=== PATIENT | female | born 1935 | race Caucasian/White ===

== ENCOUNTER → 2016-11-03 | Outpatient (CLI) | payer MEDICARE | END | disposition home or self-care (01) | LOC: LABWHC1 08:42 | PROVIDERS: ATTEND Psychiatry & Neurology Neurology | DX: G40.209 Localization-related (focal) (partial) symptomatic epilepsy and epileptic syndromes with complex partial seizures, not intractable, without status epilepticus (principal) | CPT/HCPCS: 36415; 80185; 84450; 84460 ==

== ENCOUNTER → 2017-11-20 | Outpatient (CLI) | payer MEDICARE ==
[2017-11-20 11:29] LABS: Phenytoin (Dilantin) 30.9 ug/mL
== END | disposition home or self-care (01) ==
LOC: LABWHC1 07:29
PROVIDERS: ATTEND Psychiatry & Neurology Neurology
DX: G40.209 Localization-related (focal) (partial) symptomatic epilepsy and epileptic syndromes with complex partial seizures, not intractable, without status epilepticus (principal)
CPT/HCPCS: 36415; 80185; 84450; 84460

== ENCOUNTER → 2017-11-26 | Outpatient (CLI) | payer MEDICARE | END | disposition home or self-care (01) | LOC: LABWHC1 09:57 | PROVIDERS: ATTEND Psychiatry & Neurology Neurology | DX: G40.209 Localization-related (focal) (partial) symptomatic epilepsy and epileptic syndromes with complex partial seizures, not intractable, without status epilepticus (principal) | CPT/HCPCS: 36415; 80185 ==

== ENCOUNTER → 2017-11-29 | Outpatient (CLI) | payer MEDICARE | END | disposition home or self-care (01) | LOC: LABWHC1 07:41 | PROVIDERS: ATTEND Psychiatry & Neurology Neurology | DX: G40.209 Localization-related (focal) (partial) symptomatic epilepsy and epileptic syndromes with complex partial seizures, not intractable, without status epilepticus (principal) | CPT/HCPCS: 36415; 80185 ==

== ENCOUNTER → 2017-12-06 | Outpatient (CLI) | payer MEDICARE | END | disposition home or self-care (01) | LOC: LABWHC1 09:07 | PROVIDERS: ATTEND Psychiatry & Neurology Neurology | DX: G40.209 Localization-related (focal) (partial) symptomatic epilepsy and epileptic syndromes with complex partial seizures, not intractable, without status epilepticus (principal) | CPT/HCPCS: 36415; 80185 ==

== ENCOUNTER → 2017-12-13 | Outpatient (CLI) | payer MEDICARE | END | disposition home or self-care (01) | LOC: LABWHC1 07:47 | PROVIDERS: ATTEND Psychiatry & Neurology Neurology | DX: G40.209 Localization-related (focal) (partial) symptomatic epilepsy and epileptic syndromes with complex partial seizures, not intractable, without status epilepticus (principal) | CPT/HCPCS: 36415; 80185 ==

== ENCOUNTER → 2017-12-20 | Outpatient (CLI) | payer MEDICARE | END | disposition home or self-care (01) | LOC: LABWHC1 09:18 | PROVIDERS: ATTEND Psychiatry & Neurology Neurology | DX: G40.209 Localization-related (focal) (partial) symptomatic epilepsy and epileptic syndromes with complex partial seizures, not intractable, without status epilepticus (principal) | CPT/HCPCS: 36415; 80185 ==

== ENCOUNTER → 2018-05-09 | Outpatient (CLI) | payer MEDICARE ==
[2018-05-09 21:30] LABS: Phenytoin (Dilantin) 19.2 ug/mL (10.0-20.0)
== END ==
LOC: LABWHC1 14:35
PROVIDERS: ATTEND Psychiatry & Neurology Neurology
DX: G40.209 Localization-related (focal) (partial) symptomatic epilepsy and epileptic syndromes with complex partial seizures, not intractable, without status epilepticus (principal)
CPT/HCPCS: 36415; 80185; 84450; 84460

== ENCOUNTER → 2018-08-14 | Outpatient (CLI) | payer MEDICARE | LOC: LABWHC1 10:46 | PROVIDERS: ATTEND Psychiatry & Neurology Neurology | DX: G40.209 Localization-related (focal) (partial) symptomatic epilepsy and epileptic syndromes with complex partial seizures, not intractable, without status epilepticus (principal) | CPT/HCPCS: 36415; 80185; 84450; 84460 ==

== ENCOUNTER → 2019-04-26 | Outpatient (CLI) | payer MEDICARE ==
[2019-04-26 17:16] LABS: Phenytoin (Dilantin) 16.8 ug/mL (10.0-20.0)
== END | disposition home or self-care (01) ==
LOC: LABWHC1 11:41
PROVIDERS: ATTEND Psychiatry & Neurology Neurology
DX: G40.209 Localization-related (focal) (partial) symptomatic epilepsy and epileptic syndromes with complex partial seizures, not intractable, without status epilepticus (principal)
CPT/HCPCS: 36415; 80185; 84450; 84460

== ENCOUNTER → 2019-12-09 | Outpatient (CLI) | payer MEDICARE ==
--- NOTE | 2019-12-09 15:37 | CT ---
EXAMINATION TYPE: CT chest w con DATE OF EXAM: 12/09/2019 COMPARISON: None HISTORY: 84-year-old female Non small cell lung cancer TECHNIQUE: Contiguous axial scanning of the chest after the administration of 80 mL of Isovue 300. C oronal/sagittal reconstructions performed. CT DLP: 411.9mGycm. Automatic exposure control utilized for a dose reduction. FINDINGS: Heart mildly enlarged without pericardial effusion. Three-vessel coronary artery calcifications are p resent. Aorta normal caliber but with moderate atherosclerotic arch and descending thoracic aortic calcificat ions. Conventional arch vessel branching anatomy. Borderline to mildly enlarged caliber to the main right and left pulmonary arteries are 2.5 and 2.6 c m, respectively, suggesting underlying pulmonary artery hypertension. Surgical clips of the right hilum with prior right upper lobectomy. Reticular changes in the visualized lower lungs with mild traction bronchiolectasis and areas of scar ring and atelectasis. No suspicious pulmonary nodule or mass. Mild biapical pleural-parenchymal scarring. Mild centrilobula r emphysema. No thoracic lymphadenopathy by CT size criteria. Visualized upper abdomen does not include the adrenal glands. Bones: Synostosis of the right lateral fifth and sixth ribs could be on a postsurgical basis. No osse ous destructive process. IMPRESSION: 1. Status post right upper lobectomy. No suspicious pulmonary nodule or mass to suggest recurrent or metastatic disease in the chest. 2. COPD with mild emphysema, fibrosis along the lung bases, and pulmonary arterial hypertension. 3. Mild cardiomegaly and CAD.
== END | disposition home or self-care (01) ==
LOC: RADCTMAIN 13:16
PROVIDERS: ATTEND Internal Medicine Critical Care Medicine
DX: J43.2 Centrilobular emphysema (principal); J84.10 Pulmonary fibrosis, unspecified; I27.21 Secondary pulmonary arterial hypertension; I25.10 Atherosclerotic heart disease of native coronary artery without angina pectoris; I51.7 Cardiomegaly; C34.90 Malignant neoplasm of unspecified part of unspecified bronchus or lung; Z90.2 Acquired absence of lung [part of]; Z88.1 Allergy status to other antibiotic agents
CPT/HCPCS: 82565; 84520; 71260; 36415; Q9967

== ENCOUNTER 2020-02-13 10:36 | Inpatient (IN) | payer MEDICARE ==
[2020-02-13 11:51] LABS: Basophils % (A) 1 %; Eosinophils % (A) 0 %; HCT 42.8 % (34.0-46.0); HGB 14.1 gm/dL (11.4-16.0); Lymphocytes # (A) 1.6 k/uL (1.0-4.8); Lymphocytes % (A) 25 %; MCH 30.4 pg (25.0-35.0); MCHC 32.9 g/dL (31.0-37.0); MCV 92.4 fL (80.0-100.0); Mean Platelet Volume 9.9; Monocytes # (A) 0.4 k/uL (0-1.0); Monocytes % (A) 6 %; Neutrophils # (A) 4.3 k/uL (1.3-7.7); Neutrophils % (A) 66 %; Platelet Count 150 k/uL (150-450); RBC 4.63 m/uL (3.80-5.40); RDW 13.4 % (11.5-15.5); WBC 6.5 k/uL (3.8-10.6)
--- NOTE | 2020-02-13 11:51 | ED ---
General Adult HPI - General Chief complaint: Shortness of Breath Stated complaint: coughed - felt bump on head move Time Seen by Provider: 02/13/20 10:40 Source: patient, family, RN notes reviewed, old records reviewed Mode of arrival: wheelchair Limitations: no limitations - History of Present Illness Initial comments: This is an 84-year-old female presents emergency Department complaining of shortness of breath which is a little worse than normal. She is also complaining of some pedal edema bilaterally. Patient denies any chest pain or palpitations. Patient states she's been coughing for about 3 weeks. Patient denies any fevers or chills. Patient does state that on the side of her forehead she has a small tiny bump that has become very tender last night and it's really bothering her. Patient states it's not mobile it's not red Hot and She Doesn't Recall Hitting. Patient States She Doesn't Believe It Was There Yesterday but There Is a Bump There Now. - Related Data Home Medications Medication Instructions Recorded Confirmed Albuterol Sulfate [Albuterol 1 puff PO RT-Q6H PRN 02/13/20 02/13/20 Sulfate Hfa] Aspirin EC [Ecotrin Low Dose] 81 mg PO DAILY 02/13/20 02/13/20 Atorvastatin Calcium [Lipitor] 20 mg PO DAILY 02/13/20 02/13/20 Digoxin [Digitek] 125 mcg PO DAILY 02/13/20 02/13/20 Doxycycline [Vibramycin] 100 mg PO BID PRN 02/13/20 02/13/20 Furosemide [Lasix] 20 mg PO DAILY 02/13/20 02/13/20 Ipratropium-Albuterol Nebulize 3 ml INHALATION RT-QID PRN 02/13/20 02/13/20 [Duoneb 0.5 mg-3 mg/3 ml Soln] Phenytoin Sodium Extended 100 mg PO BID 02/13/20 02/13/20 [Dilantin] Phenytoin [Dilantin Chew] 50 mg PO HS 02/13/20 02/13/20 Allergies Allergy/AdvReac Type Severity Reaction Status Date / Time amoxicillin Allergy Unknown-per Verified 02/13/20 11:27 PCP clarithromycin [From Biaxin] Allergy Unknown-per Verified 02/13/20 11:27 PCP sinutab Allergy Unknown-per Uncoded 02/13/20 11:27 PCP Review of Systems ROS Statement: Those systems with pertinent positive or pertinent negative responses have been documented in the HPI. ROS Other: All systems not noted in ROS Statement are negative. Past Medical History Additional Past Medical History / Comment(s): emphysema, cervical CA History of Any Multi-Drug Resistant Organisms: None Reported Past Surgical History: Unable to Obtain, Hysterectomy Additional Past Surgical History / Comment(s): bladder removed Smoking Status: Former smoker Past Alcohol Use History: None Reported Past Drug Use History: None Reported General Exam - General Exam Comments Initial Comments: GENERAL: Patient is well-developed and well-nourished. Patient is nontoxic and well- hydrated and is in mild distress. ENT: Neck is soft and supple. No significant lymphadenopathy is noted. Oropharynx is clear. Moist mucous membranes. Neck has full range of motion without eliciting any pain. EYES: The sclera were anicteric and conjunctiva were pink and moist. Extraocular movements were intact and pupils were equal round and reactive to light. Eye lids were unremarkable. PULMONARY: Unlabored respirations. Good breath sounds bilaterally. No audible rales rhonchi or wheezing was noted. CARDIOVASCULAR: Patient is bradycardic at about 40 beats minute ABDOMEN: Soft and nontender with normal bowel sounds. SKIN: Skin is clear with no lesions or rashes and otherwise unremarkable. NEUROLOGIC: Patient is alert and oriented x3. Cranial nerves II through XII are grossly intact. Motor and sensory are also intact. Normal speech, volume and content. Symmetrical smile. MUSCULOSKELETAL: Normal extremities with adequate strength and full range of motion. 1+ edema bilaterally LYMPHATICS: No significant lymphadenopathy is noted PSYCHIATRIC: Normal psychiatric evaluation. Limitations: no limitations Course Vital Signs 02/13/20 02/13/20 02/13/20 10:39 11:44 12:03 Temperature 97.5 F L Pulse Rate 45 L 42 L 40 L Respiratory 16 16 16 Rate Blood Pressure 228/67 196/61 192/92 O2 Sat by Pulse 94 L 96 97 Oximetry 02/13/20 02/13/20 12:15 13:15 Temperature Pulse Rate 38 L 42 L Respiratory 20 18 Rate Blood Pressure 188/62 170/55 O2 Sat by Pulse 99 97 Oximetry Medical Decision Making - Medical Decision Making EKG shows sinus rhythm at a rate of 41 bpm patient has a second-degree AV block at a rate of 2-1 SD interval is 252 QRS is 142 QT interval is 518 QTC is 427. Patient's EKG shows no ST segment elevation or depression. Patient does have a right bundle branch block Chest x-ray shows no acute abnormality. I spoke with Dr. price he agreed to admit the patient admitted the patient wrote admitting orders. - Lab Data Result diagrams: 02/13/20 11:35 02/13/20 11:35 Lab Results 02/13/20 02/13/20 02/13/20 Range/Units 11:35 11:35 11:35 WBC 6.5 (3.8-10.6) k/uL RBC 4.63 (3.80-5.40) m/uL Hgb 14.1 (11.4-16.0) gm/dL Hct 42.8 (34.0-46.0) % MCV 92.4 (80.0-100.0) fL MCH 30.4 (25.0-35.0) pg MCHC 32.9 (31.0-37.0) g/dL RDW 13.4 (11.5-15.5) % Plt Count 150 (150-450) k/uL Neutrophils % 66 % Lymphocytes % 25 % Monocytes % 6 % Eosinophils % 0 % Basophils % 1 % Neutrophils # 4.3 (1.3-7.7) k/uL Lymphocytes # 1.6 (1.0-4.8) k/uL Monocytes # 0.4 (0-1.0) k/uL Eosinophils # 0.0 (0-0.7) k/uL Basophils # 0.0 (0-0.2) k/uL PT 12.2 H (9.0-12.0) sec INR 1.2 H (<1.2) APTT 26.5 (22.0-30.0) sec Sodium 138 (137-145) mmol/L Potassium 4.6 (3.5-5.1) mmol/L Chloride 101 (98-107) mmol/L Carbon Dioxide 26 (22-30) mmol/L Anion Gap 11 mmol/L BUN 36 H (7-17) mg/dL Creatinine 1.08 H (0.52-1.04) mg/dL Est GFR (CKD-EPI)AfAm 54 (>60 ml/min/1.73 sqM) Est GFR (CKD-EPI)NonAf 47 (>60 ml/min/1.73 sqM) Glucose 118 H (74-99) mg/dL Plasma Lactic Acid Cesar (0.7-2.0) mmol/L Calcium 9.6 (8.4-10.2) mg/dL Magnesium 1.9 (1.6-2.3) mg/dL Total Bilirubin 0.9 (0.2-1.3) mg/dL AST 37 H (14-36) U/L ALT 25 (4-34) U/L Alkaline Phosphatase 155 H (38-126) U/L Troponin I (0.000-0.034) ng/mL NT-Pro-B Natriuret Pep pg/mL Total Protein 7.7 (6.3-8.2) g/dL Albumin 4.5 (3.5-5.0) g/dL 02/13/20 02/13/20 02/13/20 Range/Units 11:35 11:35 11:35 WBC (3.8-10.6) k/uL RBC (3.80-5.40) m/uL Hgb (11.4-16.0) gm/dL Hct (34.0-46.0) % MCV (80.0-100.0) fL MCH (25.0-35.0) pg MCHC (31.0-37.0) g/dL RDW (11.5-15.5) % Plt Count (150-450) k/uL Neutrophils % % Lymphocytes % % Monocytes % % Eosinophils % % Basophils % % Neutrophils # (1.3-7.7) k/uL Lymphocytes # (1.0-4.8) k/uL Monocytes # (0-1.0) k/uL Eosinophils # (0-0.7) k/uL Basophils # (0-0.2) k/uL PT (9.0-12.0) sec INR (<1.2) APTT (22.0-30.0) sec Sodium (137-145) mmol/L Potassium (3.5-5.1) mmol/L Chloride (98-107) mmol/L Carbon Dioxide (22-30) mmol/L Anion Gap mmol/L BUN (7-17) mg/dL Creatinine (0.52-1.04) mg/dL Est GFR (CKD-EPI)AfAm (>60 ml/min/1.73 sqM) Est GFR (CKD-EPI)NonAf (>60 ml/min/1.73 sqM) Glucose (74-99) mg/dL Plasma Lactic Acid Cesar 1.4 (0.7-2.0) mmol/L Calcium (8.4-10.2) mg/dL Magnesium (1.6-2.3) mg/dL Total Bilirubin (0.2-1.3) mg/dL AST (14-36) U/L ALT (4-34) U/L Alkaline Phosphatase (38-126) U/L Troponin I 0.019 (0.000-0.034) ng/mL NT-Pro-B Natriuret Pep 1450 pg/mL Total Protein (6.3-8.2) g/dL Albumin (3.5-5.0) g/dL Critical Care Time Critical Care Time: Yes Total Critical Care Time: 35 Disposition Clinical Impression: Second degree AV block, Mobitz type II Disposition: ADMITTED IP TO THIS HOSP Referrals: Claudy Grove MD [Primary Care Provider] - 1-2 days Time of Disposition: 13:23
--- NOTE | 2020-02-13 11:56 | XR ---
EXAMINATION TYPE: XR chest 2V DATE OF EXAM: 02/13/2020 HISTORY: Shortness of breath. COMPARISON: 08/19/2009 TECHNIQUE: 2 views of the chest are submitted. FINDINGS: Demonstrated are scattered senescent parenchymal change. Mildly Increased patchy density right lower lobe may reflect developing pneumonia. Correlate clinical ly. Cardiomegaly with pulmonary venous engorgement without overt failure at this time. Hilar and mediastinal structures are within normal limits. Degenerative changes are seen of the dorsal spine. IMPRESSION: 1. Mildly Increased patchy density right lower lobe may reflect developing pneumonia. Correlate clin ically.
[2020-02-13 12:01] LABS: INR 1.2 (<1.2); Partial Thromboplastin Time 26.5 sec (22.0-30.0); Prothrombin Time 12.2 sec (9.0-12.0)
[2020-02-13 12:07] LABS: Albumin 4.5 g/dL (3.5-5.0); Calcium 9.6 mg/dL (8.4-10.2); Magnesium 1.9 mg/dL (1.6-2.3); Potassium 4.6 mmol/L (3.5-5.1); Total Bilirubin 0.9 mg/dL (0.2-1.3); Total Protein 7.7 g/dL (6.3-8.2)
[2020-02-13] MEDS ORDERED: hydrALAZINE HCL 20 MG/ML 1 ML VIAL IVP STA (12:10)
[2020-02-13] MEDS ORDERED: NITROGLYCERIN SL TABS 0.4 MG TAB SUBLINGUAL PRN (13:24)
[2020-02-13 13:28] LABS: Phenytoin (Dilantin) 21.3 ug/mL
[2020-02-13 13:44] LABS: Digoxin 0.5 ng/mL
[2020-02-13] MEDS ORDERED: IPRATROPIUM-ALBUTEROL 3 ML NEB INHALATION PRN (16:04)
[2020-02-13 17:10] LABS: Glucose,Whole Blood 109 mg/dL (75-99)
[2020-02-13 17:10] LABS: Glucose,Whole Blood 66 mg/dL (75-99)
[2020-02-13 20:29] LABS: Glucose,Whole Blood 113 mg/dL (75-99)
[2020-02-13] MEDS: FAMOTIDINE 20 MG/2 ML VIAL IV SCH (20:53)
[2020-02-13] MEDS: HEPARIN SODIUM,PORCINE 5,000 UNIT/ML 1 ML VIAL SQ SCH (20:53)
[2020-02-13] MEDS: PHENYTOIN SODIUM EXTENDED 100 MG CAP PO SCH (20:53)
[2020-02-13] MEDS: DOXYCYCLINE 100 MG in SODIUM CHLORIDE 0.9% 100 ML IVPB SCH (20:54)
[2020-02-13] MEDS ORDERED: FAMOTIDINE 20 MG/2 ML VIAL IV SCH (21:00)
[2020-02-13] MEDS ORDERED: hydrALAZINE HCL 25 MG TAB PO PRN (21:21)
--- NOTE | 2020-02-13 21:32 | P.HPIM ---
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 She actually presents today because she has very small nodule on the left eyebrow that is hurting it is the size of about 2-3 mm only with no surrounding cellulitis and no purulent discharge. However on admission patient was noticed to be tachypneic and she states that she has chronic dyspnea however it became worse last week and is associated with cough and yellowish phlegm. Also patient was noticed with type II AV block 2-1 so decided to be admitted to the hospital Patient is hemodynamically stable, her heart rates 3841, blood pressure 180/93 Labs showing unremarkable cbc, inr, bmp, liver enzymes. Serial troponins are - 0.019 and 0.0-1. ProBNP is 1450. Digoxin level 0.5 which is below the reference range and phenytoin level is 21.3 which is slightly above the reference range EKG showing sinus rhythm at 41 with second-degree AV block with 21 AV conduction, QTC is 427. Chest x-ray: Mildly increased patchy density right lower lobe may reflect developing pneumonia Review of Systems CONSTITUTIONAL: No fever, no malaise, no fatigue. HEENT: No recent visual problems or hearing problems. Denied any sore throat. CARDIOVASCULAR: No orthopnea, PND, no palpitations, no syncope. PULMONARY: no hemoptysis. No chest wall tenderness GASTROINTESTINAL: No diarrhea, no nausea, no vomiting, no abdominal pain. Normoactive bowel sounds. NEUROLOGICAL: No headaches, no weakness, no numbness. HEMATOLOGICAL: Denies any bleeding or petechiae. GENITOURINARY: Denies any burning micturition, frequency, or urgency. MUSCULOSKELETAL/RHEUMATOLOGICAL: Denies any joint pain, swelling, or any muscle pain. ENDOCRINE: Denies any polyuria or polydipsia. Past Medical History Past Medical History: Atrial Fibrillation, Hypertension Additional Past Medical History / Comment(s): emphysema, cervical CA History of Any Multi-Drug Resistant Organisms: None Reported Past Surgical History: Unable to Obtain, Hysterectomy Additional Past Surgical History / Comment(s): bladder removed partial rt lung removed for CA Past Anesthesia/Blood Transfusion Reactions: No Reported Reaction Past Psychological History: No Psychological Hx Reported Smoking Status: Former smoker Past Alcohol Use History: None Reported Past Drug Use History: None Reported - Past Family History Mother Family Medical History: Diabetes Mellitus Medications and Allergies Home Medications Medication Instructions Recorded Confirmed Type Albuterol Sulfate [Albuterol 1 puff PO RT-Q6H PRN 02/13/20 02/13/20 History Sulfate Hfa] Aspirin EC [Ecotrin Low Dose] 81 mg PO DAILY 02/13/20 02/13/20 History Atorvastatin Calcium [Lipitor] 20 mg PO DAILY 02/13/20 02/13/20 History Digoxin [Digitek] 125 mcg PO DAILY 02/13/20 02/13/20 History Doxycycline [Vibramycin] 100 mg PO BID PRN 02/13/20 02/13/20 History Furosemide [Lasix] 20 mg PO DAILY 02/13/20 02/13/20 History Ipratropium-Albuterol Nebulize 3 ml INHALATION RT-QID PRN 02/13/20 02/13/20 History [Duoneb 0.5 mg-3 mg/3 ml Soln] Phenytoin Sodium Extended 100 mg PO BID 02/13/20 02/13/20 History [Dilantin] Phenytoin [Dilantin Chew] 50 mg PO HS 02/13/20 02/13/20 History Allergies Allergy/AdvReac Type Severity Reaction Status Date / Time amoxicillin Allergy Unknown-per Verified 02/13/20 11:27 PCP clarithromycin [From Biaxin] Allergy Unknown-per Verified 02/13/20 11:27 PCP sinutab Allergy Unknown-per Uncoded 02/13/20 11:27 PCP Physical Exam Vitals: Vital Signs Temp Pulse Resp BP Pulse Ox 02/13/20 14:00 98.0 F 41 L 18 180/93 100 02/13/20 13:15 42 L 18 170/55 97 02/13/20 12:15 38 L 20 188/62 99 02/13/20 12:03 40 L 16 192/92 97 02/13/20 11:44 42 L 16 196/61 96 02/13/20 10:39 97.5 F L 45 L 16 228/67 94 L Intake and Output 02/13/20 02/13/20 02/13/20 06:59 14:59 22:59 Other: Weight 60.781 kg 60.781 kg GENERAL: The patient is alert and oriented x3, not in any acute distress. Well developed, well nourished. HEENT: Pupils are round and equally reacting to light. EOMI. No scleral icterus. No conjunctival pallor. Normocephalic, atraumatic. No pharyngeal erythema. No thyromegaly. CARDIOVASCULAR: S1 and S2 present. No murmurs, rubs, or gallops. -PULMONARY: Chest is clear to auscultation, no wheezing or crackles. However patient is tachycardic with prolonged expiration ABDOMEN: Soft, nontender, nondistended, normoactive bowel sounds. No palpable organomegaly. MUSCULOSKELETAL: No joint swelling or deformity. EXTREMITIES: No cyanosis, clubbing, or pedal edema. NEUROLOGICAL: Gross neurological examination did not reveal any focal deficits. SKIN: No rashes. No petechiae Results CBC & Chem 7: 02/13/20 11:35 02/13/20 11:35 Labs: Abnormal Lab Results - Last 24 Hours (Table) 02/13/20 02/13/20 Range/Units 11:35 11:35 PT 12.2 H (9.0-12.0) sec INR 1.2 H (<1.2) BUN 36 H (7-17) mg/dL Creatinine 1.08 H (0.52-1.04) mg/dL Glucose 118 H (74-99) mg/dL AST 37 H (14-36) U/L Alkaline Phosphatase 155 H (38-126) U/L Thrombosis Risk Factor Assmnt - Choose All That Apply Each Factor Represents 1 point: Abnormal pulmonary function (COPD) Each Risk Factor Represents 3 Points: Age 75 years or older Thrombosis Risk Factor Assessment Total Risk Factor Score: 4 Thrombosis Risk Factor Assessment Level: Moderate Risk Assessment and Plan Assessment: Heart block type II with 2-1 block Emphysema with acute exacerbation of COPD, with possible development pneumonia Essential hypertension, uncontrolled Chronic kidney disease, stage III Atrial fibrillation History of brain aneurysm status post rupture, on prophylactic dose of Dilantin. No history of seizure History of cancer spots status post resection Plan: This is a pleasant 84 years old female who presents with 2-1 AV block and bra dycardia. COPD exacerbation. Admitted the patient to a telemetry unit, cardiology consult. Monitor vitals closely and heart rate closely. Start steroids and breathing treatment. Continue with antibiotics, send sputum for culture. Pulmonary consult start on Norvasc 5 mg daily, as well as hydralazine as needed. Monitor blood pressure closely Labs and medication were reviewed.. Continue same treatment. Continue with symptomatic treatment. Resume home medication. Monitor lytes and vitals. DVT and GI prophylaxis. Further recommendations of the clinical course of the patient DVT prophylaxis: Subcutaneous heparin GI Prophylaxis: Pepcid PT/OT: Pending Prognosis is guarded
[2020-02-13] MEDS ORDERED: ACETAMINOPHEN TAB 325 MG TAB PO PRN (23:29)
[2020-02-13] MEDS: amLODIPine 5 MG TAB PO SCH (23:41)
[2020-02-14 06:19] LABS: Glucose,Whole Blood 99 mg/dL (75-99)
[2020-02-14 06:43] LABS: Basophils % (A) 1 %; Eosinophils % (A) 0 %; HCT 39.7 % (34.0-46.0); HGB 12.7 gm/dL (11.4-16.0); Lymphocytes # (A) 1.9 k/uL (1.0-4.8); Lymphocytes % (A) 43 %; MCH 29.9 pg (25.0-35.0); MCV 93.3 fL (80.0-100.0); Mean Platelet Volume 9.8; Monocytes # (A) 0.3 k/uL (0-1.0); Monocytes % (A) 7 %; Neutrophils % (A) 45 %; Platelet Count 127 k/uL (150-450); RBC 4.25 m/uL (3.80-5.40); RDW 13.4 % (11.5-15.5); WBC 4.3 k/uL (3.8-10.6)
[2020-02-14 07:00] LABS: Calcium 8.8 mg/dL (8.4-10.2); Potassium 4.8 mmol/L (3.5-5.1)
[2020-02-14] MEDS ORDERED: ASPIRIN 325 MG TAB PO SCH (09:00)
[2020-02-14] MEDS: amLODIPine 5 MG TAB PO SCH (09:43)
[2020-02-14] MEDS: FUROSEMIDE 20 MG TAB PO SCH (09:43)
[2020-02-14] MEDS: PHENYTOIN SODIUM EXTENDED 100 MG CAP PO SCH ×2 (09:43→21:43)
[2020-02-14] MEDS: HEPARIN SODIUM,PORCINE 5,000 UNIT/ML 1 ML VIAL SQ SCH ×2 (09:43→21:44)
[2020-02-14] MEDS: ATORVASTATIN 20 MG TAB PO SCH (09:43)
[2020-02-14 12:33] LABS: Glucose,Whole Blood 137 mg/dL (75-99)
--- NOTE | 2020-02-14 12:59 | P.CRDCN ---
History of Present Illness History of present illness: This is Dr. Toribio dictating a consult on this patient The patient was interviewed and examined IMPRESSION / ASSESSMENT: 2:1 heart block with a ventricular rate of 41 beats a minute right bundle branch block pattern Left axis deviation Normal TSH normal potassium no triggering factors Hypertension Dyslipidemia on atorvastatin PLAN: Permanent pacemaker implantation, biventricular pacing to avoid RV pacing Plan for tomorrow Discussed the patient She is agreeable to the plan Increase amlodipine to 5 mg twice daily Repeat CBC with manual differential tomorrow HPI patient presented to the emergency room committee of shortness of breath somewhat worse than normal. Twelve-lead ECG showed second degree heart block, 2:1, heart block with a right bundle branch block pattern with a QRS width of 140 ms Changed to baby aspirin ROS: No fever chills or rigors, no cough, phlegm or expectoration, no nausea, vomiting or diarrhea, no hematuria, dysuria, no musculoskeletal complaints, no strokes or seizures, no skin lesions. EXAMINATION: Temperature 97.6F pulse rate in the 30s and 40s normal respirations no orthopnea Blood pressure 149/52 mmHg and 167/56. His mercury Heart sounds S1 and S2 are normal no murmurs or gallop or rub Breath sounds are clear no rhonchi no crackles Abdomen is soft nontender except is warm REVIEW OF LABS, ECG & MEDICAL DATA Normal white count normal hemoglobin Normal potassium BUN 36 creatinine 1.23 TSH normal at 0.9 LDL 33 Past Medical History Past Medical History: Atrial Fibrillation, Hypertension Additional Past Medical History / Comment(s): emphysema, cervical CA History of Any Multi-Drug Resistant Organisms: None Reported Past Surgical History: Unable to Obtain, Hysterectomy Additional Past Surgical History / Comment(s): bladder removed partial rt lung removed for CA Past Anesthesia/Blood Transfusion Reactions: No Reported Reaction Past Psychological History: No Psychological Hx Reported Smoking Status: Former smoker Past Alcohol Use History: None Reported Past Drug Use History: None Reported - Past Family History Mother Family Medical History: Diabetes Mellitus Medications and Allergies Home Medications Medication Instructions Recorded Confirmed Type Albuterol Sulfate [Albuterol 1 puff PO RT-Q6H PRN 02/13/20 02/13/20 History Sulfate Hfa] Aspirin EC [Ecotrin Low Dose] 81 mg PO DAILY 02/13/20 02/13/20 History Atorvastatin Calcium [Lipitor] 20 mg PO DAILY 02/13/20 02/13/20 History Digoxin [Digitek] 125 mcg PO DAILY 02/13/20 02/13/20 History Doxycycline [Vibramycin] 100 mg PO BID PRN 02/13/20 02/13/20 History Furosemide [Lasix] 20 mg PO DAILY 02/13/20 02/13/20 History Ipratropium-Albuterol Nebulize 3 ml INHALATION RT-QID PRN 02/13/20 02/13/20 History [Duoneb 0.5 mg-3 mg/3 ml Soln] Phenytoin Sodium Extended 100 mg PO BID 02/13/20 02/13/20 History [Dilantin] Phenytoin [Dilantin Chew] 50 mg PO HS 02/13/20 02/13/20 History Allergies Allergy/AdvReac Type Severity Reaction Status Date / Time amoxicillin Allergy Unknown-per Verified 02/13/20 11:27 PCP clarithromycin [From Biaxin] Allergy Unknown-per Verified 02/13/20 11:27 PCP sinutab Allergy Unknown-per Uncoded 02/13/20 11:27 PCP Physical Exam Vitals: Vital Signs Temp Pulse Pulse Resp BP BP Pulse Ox 02/14/20 08:00 97.6 F 38 L 17 167/56 97 02/14/20 04:00 40 L 19 149/52 96 02/14/20 00:00 45 L 20 148/62 94 L 02/13/20 20:00 97.5 F L 43 L 20 150/68 96 02/13/20 16:00 71 16 175/63 98 02/13/20 14:00 98.0 F 41 L 18 180/93 100 02/13/20 13:15 42 L 18 170/55 97 Intake and Output 02/13/20 02/14/20 02/14/20 22:59 06:59 14:59 Intake Total 0 Balance 0 Intake: Oral 0 Other: Voiding Method Toilet Toilet Toilet # Voids 1 1 1 # Bowel Movements 1 1 Weight 60.781 kg 61.1 kg Results 02/14/20 05:53 02/14/20 05:53 Cardiac Enzymes 02/13/20 02/13/20 Range/Units 14:46 17:23 Troponin I 0.021 0.024 (0.000-0.034) ng/mL Lipids 02/14/20 Range/Units 05:53 Triglycerides 59 (<150) mg/dL Cholesterol 89 (<200) mg/dL HDL Cholesterol 44 (40-60) mg/dL CBC 02/14/20 Range/Units 05:53 WBC 4.3 (3.8-10.6) k/uL RBC 4.25 (3.80-5.40) m/uL Hgb 12.7 (11.4-16.0) gm/dL Hct 39.7 (34.0-46.0) % Plt Count 127 L (150-450) k/uL Comprehensive Metabolic Panel 02/14/20 Range/Units 05:53 Sodium 139 (137-145) mmol/L Potassium 4.8 (3.5-5.1) mmol/L Chloride 104 (98-107) mmol/L Carbon Dioxide 29 (22-30) mmol/L BUN 36 H (7-17) mg/dL Creatinine 1.23 H (0.52-1.04) mg/dL Glucose 101 H (74-99) mg/dL Calcium 8.8 (8.4-10.2) mg/dL Current Medications Generic Name Dose Route Start Last Admin Trade Name Freq PRN Reason Stop Dose Admin Acetaminophen 650 mg 02/13/20 23:29 02/13/20 23:41 Acetaminophen Tab 325 Mg Tab PO 650 mg Q4HR PRN Administration Fever and/ or Pain Albuterol/Ipratropium 3 ml 02/13/20 16:04 Ipratropium-Albuterol 3 Ml Neb INHALATION RT-QID PRN Shortness Of Breath Or Wheezing Amlodipine Besylate 5 mg 02/13/20 21:30 02/14/20 09:43 Amlodipine 5 Mg Tab PO 5 mg DAILY NICKOLAS Administration Aspirin 81 mg 02/15/20 09:00 Aspirin 81 Mg PO DAILY NICKOLAS Atorvastatin Calcium 20 mg 02/14/20 09:00 02/14/20 09:43 Atorvastatin 20 Mg Tab PO 20 mg DAILY NICKOLAS Administration Famotidine 20 mg 02/13/20 21:00 02/13/20 20:53 Famotidine 20 Mg/2 Ml Vial IV 20 mg Q24H NICKOLAS Administration Furosemide 20 mg 02/14/20 09:00 02/14/20 09:43 Furosemide 20 Mg Tab PO 20 mg DAILY NICKOLAS Administration Heparin Sodium (Porcine) 5,000 unit 02/13/20 21:00 02/14/20 09:43 Heparin Sodium,Porcine 5,000 Unit/Ml 1 Ml Vial SQ 5,000 unit Q12HR NICKOLAS Administration Hydralazine HCl 25 mg 02/13/20 21:21 Hydralazine Hcl 25 Mg Tab PO TID PRN Blood Pressure - High Doxycycline Hyclate 100 mg/ 100 mls @ 100 mls/hr 02/13/20 21:00 02/13/20 20:54 Sodium Chloride IVPB 100 mls/hr Q12HR NICKOLAS Administration Sodium Chloride 1,000 mls @ 50 mls/hr 02/14/20 12:45 Saline 0.9% IV .Q20H NICKOLAS Sodium Chloride 1,000 mls @ 50 mls/hr 02/14/20 12:45 Saline 0.9% IV .Q20H NICKOLAS Clindamycin Phosphate 900 mg/ 56 mls @ 50 mls/hr 02/15/20 09:00 Dextrose/Water IVPB 02/15/20 10:07 ONCE ONE Clindamycin Phosphate 600 mg/ 254 mls @ 500 mls/hr 02/15/20 09:00 Sodium Chloride IRRIGATION 02/15/20 09:30 ONCE ONE Nitroglycerin 0.4 mg 02/13/20 13:24 Nitroglycerin Sl Tabs 0.4 Mg Tab SUBLINGUAL Q5M PRN Chest Pain Phenytoin Sodium 100 mg 02/13/20 21:00 02/14/20 09:43 Phenytoin Sodium Extended 100 Mg Cap PO 100 mg BID NICKOLAS Administration Intake and Output 02/13/20 02/14/20 02/14/20 22:59 06:59 14:59 Intake Total 0 Balance 0 Intake: Oral 0 Other: Voiding Method Toilet Toilet Toilet # Voids 1 1 1 # Bowel Movements 1 1 Weight 60.781 kg 61.1 kg 02/14/20 05:53 02/14/20 05:53
[2020-02-14] MEDS: SODIUM CHLORIDE 0.9% 1,000 ML IV SCH ×2 (13:05→13:40)
--- NOTE | 2020-02-14 13:09 | P.CNPUL ---
History of Present Illness Consult date: 02/14/20 Requesting physician: Wiliam Valdes Reason for consult: dyspnea Chief complaint: Lump on the left side of her History of present illness: This is a very pleasant 84-year-old female patient who follows with Dr. Grove as her primary care provider. She has a history of hyperlipidemia, hypertension, atrial fibrillation, chronic kidney disease stage III, previous brain aneurysm status post rupture and remains on Dilantin with no history of seizures. She also follows with Dr. Plunkett in our office for history of non-small cell lung cancer. Status post right upper lobectomy. Recent CAT scan revealed no areas of suspicious nodule or mass to suggest recurrent metastatic disease. There was noted COPD with mild emphysema and fibrosis along the lung bases and pulmonary arterial hypertension. She presented to the emergency room yesterday with concerns regarding a new lump over her left eye. During her evaluation she was noted to have bradycardia and EKG revealed Mobitz type II heart block. Chest x- ray showed patchy density in the right lower lobe possibly reflecting early pneumonia. We're consulted for the same. She is seen today on the selective care unit. She is currently awake and alert resting comfortably in bed. She is maintaining O2 saturations in the mid 90s on 2 L/m per nasal cannula. She's afebrile. Heart rate in the 30s to 40s. White count 4.3. Hemoglobin 12.7. Platelet count 127. Sodium 139. Potassium 4.8. Creatinine 1.23. TSH 0.931. Digoxin 0.5. Phenytoin level 21.3. Review of Systems REVIEW OF SYSTEMS: CONSTITUTIONAL: Denies any recent significant weight loss or weight gain. EYES: Denies change in vision. EARS, NOSE, MOUTH, THROAT: Concerns with new small bump over the left eyebrow. Denies headaches, denies sore throat. CARDIOVASCULAR: Denies chest pain, palpitations or syncopal episodes. RESPIRATORY: Denies shortness of breath, cough, congestion or hemoptysis. GASTROINTESTINAL: Denies change in appetite, denies abdominal pain GENITOURINARY: Denies hematuria, denies infections. MUSKULOSKELETAL: Denies pain, denies swelling. INTEGUMENTARY: Denies rash, denies eczema. NEUROLOGICAL: Denies recent memory loss, no recent seizure activity. PSYCHIATRIC: Denies anxiety, denies depression. HEMATOLOGIC/LYMPHATIC: Denies anemia, denies enlarged lymph nodes. Past Medical History Past Medical History: Atrial Fibrillation, Hypertension Additional Past Medical History / Comment(s): emphysema, cervical CA History of Any Multi-Drug Resistant Organisms: None Reported Past Surgical History: Unable to Obtain, Hysterectomy Additional Past Surgical History / Comment(s): bladder removed partial rt lung removed for CA Past Anesthesia/Blood Transfusion Reactions: No Reported Reaction Past Psychological History: No Psychological Hx Reported Smoking Status: Former smoker Past Alcohol Use History: None Reported Past Drug Use History: None Reported - Past Family History Mother Family Medical History: Diabetes Mellitus Medications and Allergies Home Medications Medication Instructions Recorded Confirmed Type Albuterol Sulfate [Albuterol 1 puff PO RT-Q6H PRN 02/13/20 02/13/20 History Sulfate Hfa] Aspirin EC [Ecotrin Low Dose] 81 mg PO DAILY 02/13/20 02/13/20 History Atorvastatin Calcium [Lipitor] 20 mg PO DAILY 02/13/20 02/13/20 History Digoxin [Digitek] 125 mcg PO DAILY 02/13/20 02/13/20 History Doxycycline [Vibramycin] 100 mg PO BID PRN 02/13/20 02/13/20 History Furosemide [Lasix] 20 mg PO DAILY 02/13/20 02/13/20 History Ipratropium-Albuterol Nebulize 3 ml INHALATION RT-QID PRN 02/13/20 02/13/20 History [Duoneb 0.5 mg-3 mg/3 ml Soln] Phenytoin Sodium Extended 100 mg PO BID 02/13/20 02/13/20 History [Dilantin] Phenytoin [Dilantin Chew] 50 mg PO HS 02/13/20 02/13/20 History Allergies Allergy/AdvReac Type Severity Reaction Status Date / Time amoxicillin Allergy Unknown-per Verified 02/13/20 11:27 PCP clarithromycin [From Biaxin] Allergy Unknown-per Verified 02/13/20 11:27 PCP sinutab Allergy Unknown-per Uncoded 02/13/20 11:27 PCP Physical Exam Vitals: Vital Signs Temp Pulse Pulse Resp BP BP Pulse Ox 02/14/20 08:00 97.6 F 38 L 17 167/56 97 02/14/20 04:00 40 L 19 149/52 96 02/14/20 00:00 45 L 20 148/62 94 L 02/13/20 20:00 97.5 F L 43 L 20 150/68 96 02/13/20 16:00 71 16 175/63 98 02/13/20 14:00 98.0 F 41 L 18 180/93 100 02/13/20 13:15 42 L 18 170/55 97 Intake and Output 02/13/20 02/14/20 02/14/20 22:59 06:59 14:59 Intake Total 0 Balance 0 Intake: Oral 0 Other: Voiding Method Toilet Toilet Toilet # Voids 1 1 1 # Bowel Movements 1 1 Weight 60.781 kg 61.1 kg GENERAL EXAM: Alert, comfortable, frail 84-year-old female patient, on 2 L nasal cannula, comfortable in no apparent distress. HEAD: Normocephalic. EYES: Normal reaction of pupils, equal size. NOSE: Clear with pink turbinates. THROAT: No erythema or exudates. NECK: No masses, no JVD. CHEST: No chest wall deformity. LUNGS: Equal air entry with no crackles, wheeze, rhonchi or dullness. CVS: S1 and S2 normal with no audible murmur, bradycardic. ABDOMEN: No hepatosplenomegaly, normal bowel sounds, no guarding or rigidity. SPINE: No scoliosis or deformity SKIN: No rashes CENTRAL NERVOUS SYSTEM: No focal deficits, tone is normal in all 4 extremities. EXTREMITIES: There is no peripheral edema. No clubbing, no cyanosis. Peripheral pulses are intact. Results - Laboratory Findings CBC and BMP: 02/14/20 05:53 02/14/20 05:53 PT/INR, D-dimer PT 12.2 sec (9.0-12.0) H 02/13/20 11:35 INR 1.2 (<1.2) H 02/13/20 11:35 Abnormal lab findings: Abnormal Labs 02/13/20 02/13/20 02/13/20 11:35 11:35 16:52 Plt Count PT 12.2 H INR 1.2 H BUN 36 H Creatinine 1.08 H Glucose 118 H POC Glucose (mg/dL) 66 L AST 37 H Alkaline Phosphatase 155 H 02/13/20 02/13/20 02/14/20 17:02 20:27 05:53 Plt Count PT INR BUN 36 H Creatinine 1.23 H Glucose 101 H POC Glucose (mg/dL) 109 H 113 H AST Alkaline Phosphatase 02/14/20 02/14/20 05:53 12:20 Plt Count 127 L PT INR BUN Creatinine Glucose POC Glucose (mg/dL) 137 H AST Alkaline Phosphatase - Diagnostic Findings Chest x-ray: image reviewed Assessment and Plan Assessment: 1 Bradycardia with Mobitz type II heart block, current heart rate in the 30s and 40s 2 Acute on chronic hypoxemic respiratory failure secondary to acute exacerbation of CVA COPD with possible early pneumonia in the right lower lobe 3 History of atrial fibrillation maintained on digoxin in the outpatient setting, serum digoxin level 0.5 4 History of ruptured brain aneurysm maintained on Dilantin in the outpatient setting with no history of seizures, phenytoin level 21.3 5 History of hypertension 6 Hyperlipidemia 7 Former smoker Plan: The patient was seen and evaluated by Dr. Hart Chest x-ray and labs reviewed Continue bronchodilators Continue antibiotics Stable from the pulmonary standpoint Cardiology is following and plans for possible pacemaker insertion tomorrow We will continue to follow I, the cosigning physician, performed a history & physical examination of the patient. Lungs sounds faint end expiratory wheeze, crackles in the right base, diminished Maintaining good O2 saturations in the 90s on 2 L/m per nasal cannula. I discussed the assessment and plan of care with my nurse practitioner, Nanda Willis. I attest to the above consultation as dictated by her. Time with Patient: Greater than 30
[2020-02-14] MEDS: DOXYCYCLINE 100 MG in SODIUM CHLORIDE 0.9% 100 ML IVPB SCH ×2 (13:40→21:43)
[2020-02-14] MEDS ORDERED: methylPREDNISolone SOD SUCCI 40 MG/ML 1 ML VIAL IV SCH (16:04)
[2020-02-14 17:22] LABS: Glucose,Whole Blood 109 mg/dL (75-99)
[2020-02-14 21:22] LABS: Glucose,Whole Blood 109 mg/dL (75-99)
[2020-02-14] MEDS: FAMOTIDINE 20 MG/2 ML VIAL IV SCH (21:44)
[2020-02-15 06:06] LABS: Glucose,Whole Blood 113 mg/dL (75-99)
[2020-02-15 06:49] LABS: Basophils % (A) 1 %; Eosinophils % (A) 0 %; HCT 37.8 % (34.0-46.0); HGB 12.1 gm/dL (11.4-16.0); Lymphocytes # (A) 1.2 k/uL (1.0-4.8); Lymphocytes % (A) 27 %; MCHC 31.9 g/dL (31.0-37.0); Mean Platelet Volume 10.1; Monocytes # (A) 0.3 k/uL (0-1.0); Monocytes % (A) 7 %; Neutrophils # (A) 2.7 k/uL (1.3-7.7); Neutrophils % (A) 62 %; Platelet Count 111 k/uL (150-450); RBC 4.02 m/uL (3.80-5.40); RDW 13.2 % (11.5-15.5); WBC 4.4 k/uL (3.8-10.6)
[2020-02-15] MEDS ORDERED: IOPAMIDOL-370 50ML BTL INJ ONE (08:27)
[2020-02-15] MEDS: SODIUM CHLORIDE 0.9% 1,000 ML IV SCH ×2 (08:58→13:33)
[2020-02-15] MEDS ORDERED: CLINDAMYCIN 900 MG in DEXTROSE 5% IN WATER 50 ML IVPB ONE ×2 (09:00)
[2020-02-15] MEDS ORDERED: CLINDAMYCIN 600 MG in SODIUM CHLORIDE 0.9% IRRIGATIO 250 ML IRRIGATION ONE (09:00)
[2020-02-15] MEDS ORDERED: SODIUM CHLORIDE 0.9% 1,000 ML IV ONE (09:05)
[2020-02-15] MEDS ORDERED: LIDOCAINE 1% INJ 10MG/ML (20 ML MDV) ONE ×2 (09:19)
[2020-02-15] MEDS ORDERED: HEPARIN SODIUM 1,000 UN/ML (10ML VL) ONE (09:36)
[2020-02-15] MEDS ORDERED: fentaNYL (PF) 50 MCG/ML 2 ML AMP ONE (09:42)
[2020-02-15] MEDS ORDERED: diphenhydrAMINE 50 MG/ML 1 ML VIAL ONE (09:42)
[2020-02-15] MEDS ORDERED: MIDAZOLAM 2 MG/2 ML VIAL ONE (09:42)
[2020-02-15] MEDS ORDERED: LIDOCAINE 1% INJ 10MG/ML (20 ML MDV) SQ ONE ×2 (10:18→10:26)
[2020-02-15] MEDS ORDERED: ACETAMINOPHEN TAB 325 MG TAB PO PRN (12:17)
--- NOTE | 2020-02-15 12:25 | P.PN ---
Progress Note - Text Final diagnoses 2-1 heart block with right bundle branch block Infrahisian block, Hypertension Status post biventricular pacing with physiologic septal pacing Nonselective His bundle capture
[2020-02-15] MEDS: HEPARIN SODIUM,PORCINE 5,000 UNIT/ML 1 ML VIAL SQ SCH ×2 (13:34→19:40)
--- NOTE | 2020-02-15 14:24 | P.PN ---
Subjective Progress Note Date: 02/14/20 Principal diagnosis: Bradycardia with Mobitz type II heart block Mrs. Eduardo is an 84-year-old female with a past medical history of atrial fibrillation and hypertension, CK D stage III, previous brain aneurysm, non- small cell lung cancer status post right upper lobectomy, COPD, pulmonary hypertension coming in with the current symptoms of new lump over the left eye. In the ER patient had a chest x-ray done showing bradycardia with Mobitz type II heart block. Chest x-ray was showing patchy density in the right lower lobe possibly reflecting early pneumonia and so she is admitted for further management and workup. On 02/14/2020-patient is sitting up in her bed appears to be in acute distress. Patient does not have any active complaints. She denies chest pain or palpi tations. No dizziness or loss of consciousness. Patient denies any cough or difficulty in breathing. No abdominal pain, nausea, vomiting or diarrhea. No dysuria or hematuria. On reviewing her vitals patient is still bradycardic, saturating at 97% on 2 L of oxygen. Afebrile the past 24 hours and blood pressure marginally controlled. On reviewing her labs patient's white count is 4.3, hemoglobin 12.7, platelets 127. Sodium 139 progression 4.8, chloride 104, bicarbonate 29, BUN 36, creatinine 1.23. Medications Acetaminophen (Acetaminophen Tab 325 Mg Tab) 650 mg PO Q4HR PRN PRN Reason: Fever and/ or Pain Last Admin: 02/13/20 23:41 Dose: 650 mg Documented by: Albuterol/Ipratropium (Ipratropium-Albuterol 3 Ml Neb) 3 ml INHALATION RT-QID PRN PRN Reason: Shortness Of Breath Or Wheezing Amlodipine Besylate (Amlodipine 5 Mg Tab) 5 mg PO DAILY [facility] Last Admin: 02/14/20 09:43 Dose: 5 mg Documented by: Aspirin (Aspirin 81 Mg) 81 mg PO DAILY [facility] Atorvastatin Calcium (Atorvastatin 20 Mg Tab) 20 mg PO DAILY [facility] Last Admin: 02/14/20 09:43 Dose: 20 mg Documented by: Famotidine (Famotidine 20 Mg/2 Ml Vial) 20 mg IV Q24H [facility] Last Admin: 02/14/20 21:44 Dose: 20 mg Documented by: Furosemide (Furosemide 20 Mg Tab) 20 mg PO DAILY [facility] Last Admin: 02/14/20 09:43 Dose: 20 mg Documented by: Heparin Sodium (Porcine) (Heparin Sodium,Porcine 5,000 Unit/Ml 1 Ml Vial) 5,000 unit SQ Q12HR [facility] Last Admin: 02/14/20 21:44 Dose: 5,000 unit Documented by: Hydralazine HCl (Hydralazine Hcl 25 Mg Tab) 25 mg PO TID PRN PRN Reason: Blood Pressure - High Doxycycline Hyclate 100 mg/ (Sodium Chloride) 100 mls @ 100 mls/hr IVPB Q12HR [facility] Last Admin: 02/14/20 21:43 Dose: 100 mls/hr Documented by: Sodium Chloride (Saline 0.9%) 1,000 mls @ 50 mls/hr IV .Q20H [facility] Last Admin: 02/14/20 13:05 Dose: Not Given Documented by: Sodium Chloride (Saline 0.9%) 1,000 mls @ 50 mls/hr IV .Q20H [facility] Last Admin: 02/14/20 13:40 Dose: 50 mls/hr Documented by: Clindamycin Phosphate 900 mg/ (Dextrose/Water) 56 mls @ 50 mls/hr IVPB ONCE ONE Stop: 02/15/20 10:07 Clindamycin Phosphate 600 mg/ (Sodium Chloride) 254 mls @ 500 mls/hr IRRIGATION ONCE ONE Stop: 02/15/20 09:30 Nitroglycerin (Nitroglycerin Sl Tabs 0.4 Mg Tab) 0.4 mg SUBLINGUAL Q5M PRN PRN Reason: Chest Pain Phenytoin Sodium (Phenytoin Sodium Extended 100 Mg Cap) 100 mg PO BID [facility] Last Admin: 02/14/20 21:43 Dose: 100 mg Documented by: Objective - Vital Signs Vital signs: Vital Signs Temp 98.4 F 02/14/20 16:00 Pulse 42 L 02/14/20 16:00 Resp 19 02/14/20 16:00 BP 125/48 02/14/20 16:00 Pulse Ox 97 02/14/20 16:00 Intake & Output 02/13/20 02/14/20 02/14/20 18:59 06:59 18:59 Intake Total 250 Balance 250 Weight 60.781 kg 61.1 kg Intake: IV 10 0.9 10 Oral 240 Other: Voiding Method Toilet Toilet # Voids 0 1 1 # Bowel Movements 1 2 - Exam GENERAL: The patient is alert and oriented x3, not in any acute distress. Well developed, well nourished. HEENT: Pupils are round and equally reacting to light. EOMI. No scleral icterus. No conjunctival pallor. CARDIOVASCULAR: S1 and S2 present. No murmurs, rubs, or gallops. PULMONARY: Chest is clear to auscultation, no wheezing or crackles. Prolonged expiration ABDOMEN: Soft, nontender, nondistended, normoactive bowel sounds. No palpable organomegaly. MUSCULOSKELETAL: No joint swelling or deformity. EXTREMITIES: No cyanosis, clubbing, or pedal edema. NEUROLOGICAL: Gross neurological examination did not reveal any focal deficits. SKIN: No rashes. No petechiae - Labs CBC & Chem 7: 02/15/20 06:05 02/14/20 05:53 Labs: Abnormal Lab Results - Last 24 Hours (Table) 02/13/20 02/14/20 02/14/20 Range/Units 20:27 05:53 05:53 Plt Count 127 L (150-450) k/uL BUN 36 H (7-17) mg/dL Creatinine 1.23 H (0.52-1.04) mg/dL Glucose 101 H (74-99) mg/dL POC Glucose (mg/dL) 113 H (75-99) mg/dL 02/14/20 02/14/20 Range/Units 12:20 17:18 Plt Count (150-450) k/uL BUN (7-17) mg/dL Creatinine (0.52-1.04) mg/dL Glucose (74-99) mg/dL POC Glucose (mg/dL) 137 H 109 H (75-99) mg/dL Assessment and Plan Assessment: ASSESSMENT Bradycardia with Heart block type II with 2-1 block Emphysema with acute exacerbation of COPD, with possible development of right lower lobe pneumonia Essential hypertension, uncontrolled Chronic kidney disease, stage III History of brain aneurysm status post rupture, on prophylactic dose of Dilantin. No history of seizure History of cancer spots status post resection Plan: Patient has been started on clindamycin and doxycycline for right lower lobe pneumonia, continue with breathing treatments and steroids. Cardiology is on board and planning for permanent pacemaker implantation tomorrow morning. Continue with the current medical management. Further recommendations to follow depending on the progress of the patient.
[2020-02-15] MEDS: ATORVASTATIN 20 MG TAB PO SCH (14:33)
[2020-02-15] MEDS: ASPIRIN 81 MG PO SCH (14:33)
[2020-02-15] MEDS: FUROSEMIDE 20 MG TAB PO SCH (14:33)
[2020-02-15] MEDS: PHENYTOIN SODIUM EXTENDED 100 MG CAP PO SCH ×2 (14:33→19:40)
[2020-02-15] MEDS: DOXYCYCLINE 100 MG in SODIUM CHLORIDE 0.9% 100 ML IVPB SCH ×2 (14:35→19:40)
[2020-02-15] MEDS ORDERED: amLODIPine 5 MG TAB PO STA (15:02)
--- NOTE | 2020-02-15 15:41 | XR ---
EXAMINATION TYPE: XR chest 1V portable DATE OF EXAM: 02/15/2020 COMPARISON: 02/13/2020 HISTORY: Short of breath TECHNIQUE: FINDINGS: There is coarse interstitial density in the lungs. Heart is slightly enlarged. There is lef t axillary pacemaker. There is slight blunting right costophrenic angle. There is no gross heart fail ure. IMPRESSION: Pulmonary fibrosis. Small right pleural effusion and pleural diaphragmatic scarring. No c hange compared to recent exam.
--- NOTE | 2020-02-15 16:33 | P.PN ---
Subjective Progress Note Date: 02/15/20 Principal diagnosis: Bradycardia with Mobitz type II heart block Mrs. Eduardo is an 84-year-old female with a past medical history of atrial fibrillation and hypertension, CK D stage III, previous brain aneurysm, non- small cell lung cancer status post right upper lobectomy, COPD, pulmonary hypertension coming in with the current symptoms of new lump over the left eye. In the ER patient had a chest x-ray done showing bradycardia with Mobitz type II heart block. Chest x-ray was showing patchy density in the right lower lobe possibly reflecting early pneumonia and so she is admitted for further management and workup. On 02/14/2020-patient is sitting up in her bed appears to be in acute distress. Patient does not have any active complaints. She denies chest pain or palpi tations. No dizziness or loss of consciousness. Patient denies any cough or difficulty in breathing. No abdominal pain, nausea, vomiting or diarrhea. No dysuria or hematuria. On reviewing her vitals patient is still bradycardic, saturating at 97% on 2 L of oxygen. Afebrile the past 24 hours and blood pressure marginally controlled. On reviewing her labs patient's white count is 4.3, hemoglobin 12.7, platelets 127. Sodium 139 progression 4.8, chloride 104, bicarbonate 29, BUN 36, creatinine 1.23. On 02/15/2020- patient is sitting up in the bed appears to be in acute distress. She just got a pacemaker placed and still feeling groggy from anesthesia. Patient denies having any chest pain or palpitations. Denies having any difficulty in breathing. On reviewing her vitals temperature 97.8, bradycardia, respiratory 16, blood pressure 1 84/ 86, saturating at 97% on 2 L of oxygen. Active Medications Acetaminophen (Acetaminophen Tab 325 Mg Tab) 650 mg PO Q6HR PRN PRN Reason: Mild Pain Albuterol/Ipratropium (Ipratropium-Albuterol 3 Ml Neb) 3 ml INHALATION RT-QID PRN PRN Reason: Shortness Of Breath Or Wheezing Amlodipine Besylate (Amlodipine 10 Mg Tab) 10 mg PO BID [facility] Aspirin (Aspirin 81 Mg) 81 mg PO DAILY [facility] Last Admin: 02/15/20 14:33 Dose: 81 mg Documented by: Atorvastatin Calcium (Atorvastatin 20 Mg Tab) 20 mg PO DAILY [facility] Last Admin: 02/15/20 14:33 Dose: 20 mg Documented by: Famotidine (Famotidine 20 Mg Tab) 20 mg PO [facility] Furosemide (Furosemide 20 Mg Tab) 20 mg PO DAILY [facility] Last Admin: 02/15/20 14:33 Dose: Not Given Documented by: Heparin Sodium (Porcine) (Heparin Sodium,Porcine 5,000 Unit/Ml 1 Ml Vial) 5,000 unit SQ Q12HR [facility] Last Admin: 02/15/20 13:34 Dose: Not Given Documented by: Doxycycline Hyclate 100 mg/ (Sodium Chloride) 100 mls @ 100 mls/hr IVPB Q12HR [facility] Last Admin: 02/15/20 14:35 Dose: Not Given Documented by: Clindamycin Phosphate 900 mg/ (Dextrose/Water) 56 mls @ 50 mls/hr IVPB Q6H [facility] Stop: 02/16/20 05:08 Lisinopril (Lisinopril 10 Mg Tab) 10 mg PO BID [facility] Nitroglycerin (Nitroglycerin Sl Tabs 0.4 Mg Tab) 0.4 mg SUBLINGUAL Q5M PRN PRN Reason: Chest Pain Phenytoin Sodium (Phenytoin Sodium Extended 100 Mg Cap) 100 mg PO BID [facility] Last Admin: 02/15/20 14:33 Dose: 100 mg Documented by: Sodium Chloride (Sodium Chloride 0.9% Flush 10 Ml Syringe) 10 ml IV Q12HR [facility] Objective - Vital Signs Vital signs: Vital Signs Temp 97.8 F 02/15/20 08:00 Pulse 35 L 02/15/20 08:00 Resp 19 02/15/20 08:00 BP 184/86 02/15/20 08:00 Pulse Ox 97 02/15/20 08:00 Intake & Output 02/14/20 02/15/20 02/15/20 18:59 06:59 18:59 Intake Total 1180 556 Output Total 550 600 Balance 1180 -550 -44 Weight 55.5 kg Intake: IV 10 556 0.9 10 100 Intake, IV Titration 450 Amount Sodium Chloride 0.9% 1, 450 000 ml @ 50 mls/hr IV . Q20H [facility] Rx#:[id number] Oral 720 Output: Urine 550 600 Other: Voiding Method Toilet Toilet Bedpan # Voids 4 1 1 # Bowel Movements 2 - Exam GENERAL: The patient is alert and oriented x2-3 , not in any acute distress. Well developed, well nourished. HEENT: Pupils are round and equally reacting to light. EOMI. No scleral icterus. No conjunctival pallor. CARDIOVASCULAR: S1 and S2 present. No murmurs, rubs, or gallops. PULMONARY: Chest is clear to auscultation, no wheezing or crackles. Prolonged expiration ABDOMEN: Soft, nontender, nondistended, normoactive bowel sounds. No palpable organomegaly. MUSCULOSKELETAL: No joint swelling or deformity. EXTREMITIES: No cyanosis, clubbing, or pedal edema. NEUROLOGICAL: Gross neurological examination did not reveal any focal deficits. SKIN: No rashes. No petechiae - Labs CBC & Chem 7: 02/15/20 06:05 02/14/20 05:53 Labs: Abnormal Lab Results - Last 24 Hours (Table) 02/14/20 02/14/20 02/15/20 Range/Units 17:18 20:54 06:04 Plt Count (150-450) k/uL POC Glucose (mg/dL) 109 H 109 H 113 H (75-99) mg/dL 02/15/20 Range/Units 06:05 Plt Count 111 L (150-450) k/uL POC Glucose (mg/dL) (75-99) mg/dL Microbiology - Last 24 Hours (Table) 02/14/20 08:30 Gram Stain - Preliminary Sputum Sputum Culture - Preliminary Assessment and Plan Assessment: ASSESSMENT Bradycardia with Heart block type II with 2-1 block status post permanent pacemaker placement done on 02/15/2020 Emphysema with acute exacerbation of COPD, with possible development of right lower lobe pneumonia Essential hypertension, uncontrolled Chronic kidney disease, stage III History of brain aneurysm status post rupture, on prophylactic dose of Dilantin. No history of seizure History of cancer spots status post resection Plan: Patient has been started on clindamycin and doxycycline for right lower lobe pneumonia, continue with breathing treatments and steroids. Patient had permanent pacemaker implantation done this afternoon. Postop chest x-ray still pending. Continue with the current medical management. Further recommendations to follow depending on the progress of the patient.
[2020-02-15] MEDS: amLODIPine 5 MG TAB PO SCH (16:41)
[2020-02-15] MEDS: CLINDAMYCIN 900 MG in DEXTROSE 5% IN WATER 50 ML IVPB SCH ×4 (17:06→23:32)
[2020-02-15] MEDS: lisinopriL 10 MG TAB PO SCH (19:40)
[2020-02-15] MEDS: amLODIPine 10 MG TAB PO SCH (19:40)
[2020-02-15 20:41] LABS: Glucose,Whole Blood 139 mg/dL (75-99)
[2020-02-15] MEDS ORDERED: FAMOTIDINE 20 MG TAB PO SCH (21:00)
[2020-02-15] MEDS ORDERED: amLODIPine 5 MG TAB PO SCH (21:00)
[2020-02-16] MEDS: CLINDAMYCIN 900 MG in DEXTROSE 5% IN WATER 50 ML IVPB SCH ×2 (03:15)
[2020-02-16 06:27] LABS: Glucose,Whole Blood 108 mg/dL (75-99)
[2020-02-16 06:51] LABS: Basophils % (A) 0 %; Eosinophils % (A) 0 %; HGB 11.9 gm/dL (11.4-16.0); Lymphocytes # (A) 0.9 k/uL (1.0-4.8); Lymphocytes % (A) 19 %; MCH 30.1 pg (25.0-35.0); MCV 94.1 fL (80.0-100.0); Mean Platelet Volume 9.6; Monocytes # (A) 0.4 k/uL (0-1.0); Monocytes % (A) 8 %; Neutrophils # (A) 3.4 k/uL (1.3-7.7); Neutrophils % (A) 70 %; RBC 3.93 m/uL (3.80-5.40); WBC 4.8 k/uL (3.8-10.6)
[2020-02-16 07:03] LABS: Calcium 8.2 mg/dL (8.4-10.2); Potassium 4.2 mmol/L (3.5-5.1)
[2020-02-16 07:24] LABS: Platelet Count 99 k/uL (150-450)
[2020-02-16 08:39] VITALS: TEMP 96.8
[2020-02-16] MEDS: DOXYCYCLINE 100 MG in SODIUM CHLORIDE 0.9% 100 ML IVPB SCH (09:21)
[2020-02-16] MEDS: FUROSEMIDE 20 MG TAB PO SCH (09:21)
[2020-02-16] MEDS: amLODIPine 10 MG TAB PO SCH (09:21)
[2020-02-16] MEDS: HEPARIN SODIUM,PORCINE 5,000 UNIT/ML 1 ML VIAL SQ SCH (09:21)
[2020-02-16] MEDS: ATORVASTATIN 20 MG TAB PO SCH (09:22)
[2020-02-16] MEDS: ASPIRIN 81 MG PO SCH (09:22)
[2020-02-16] MEDS: lisinopriL 10 MG TAB PO SCH (09:22)
[2020-02-16] MEDS: PHENYTOIN SODIUM EXTENDED 100 MG CAP PO SCH (09:22)
[2020-02-16 11:45] LABS: Glucose,Whole Blood 112 mg/dL (75-99)
--- NOTE | 2020-02-16 11:46 | XR ---
EXAMINATION TYPE: XR chest 2V DATE OF EXAM: 02/16/2020 CLINICAL HISTORY: Lead placement check TECHNIQUE: Frontal and lateral views of the chest are obtained. COMPARISON: 02/15/2020 chest radiograph FINDINGS: Left-sided 3-lead pacemaker, with leads in the right atrial appendage, right atrium, and r ight ventricle. No evidence of lead discontinuity or kinking. Cardiomegaly. Mediastinal silhouette no rmal. Coarsened interstitium and emphysematous change. There is right basilar pleural effusion and ad jacent airspace opacity. No pneumothorax. No displaced osseous fracture. IMPRESSION: 1. Left-sided pacemaker with leads in the right atrial appendage, right atrium, and right ventricle. 2. Small right pleural effusion and right basilar airspace opacity.
--- NOTE | 2020-02-16 12:47 | PCN ---
PROCEDURE NOTE HISTORY: Medina Eduardo is an 84-year-old female who presented with 2-1 heart block with severe bradycardia. On intraoperative mapping she was found to have infra-Hisian block. She also has hypertension. A biventricular pacemaker was implanted with physiologic septal pacing. DESCRIPTION OF PROCEDURE: Patient was brought to the EP lab in a fasting state. Written informed consent was obtained prior to the procedure. The left shoulder area was prepped and draped as per protocol. 1% lidocaine was used for local anesthesia. A 4 cm incision was made parallel to the deltopectoral groove, about 1.5 cm medial to it. The incision was carried down to the level of the pectoralis muscle. A subfascial pocket was made. The left axillary vein was accessed at 3 separate points under fluoroscopy and via appropriately-sized introducer sheaths, 3 leads were positioned. The atrial lead was a passive Medtronic lead model #4574, 53 cm length and serial number [id number]. The P waves 2.8 mV, pacing threshold 0.9 V at 0.5 milliseconds. 10 V test negative. Atrial pacing impedance of 619 ohms. The RV lead was a passive lead Medtronic model #4074, 58 cm in length and serial number [id number]. this was positioned in the RV apex. R-waves 7.1 mV, pacing impedance 1251 ohms. Pacing threshold 0.5 V at 0.5 milliseconds. 10 V test negative. His bundle lead was placed. This was a Medtronic model #3830, 69 cm length and serial number [id number]. The His bundle was mapped and infra-Hisian block was documented. The lead was positioned in the distal Hiss beyond the level of the block and nonselective capture was noted. Pacing impedance 499 ohms and pacing threshold 2 V at 1 millisecond. The patient had nonselective capture and then the ventricular capture followed by loss of capture 2.0 V at 1 milliseconds. His bundle capture was lost at 2.3 V at 1 millisecond. The sheaths were removed and all leads were secured to the underlying pectoralis muscle using 2 nonabsorbable sutures. Pocket was irrigated with antibiotic solution. Leads were connected to the generator ([employer] PR[employer] DUTY NURSE [id number] [employer]. Model number W1TR02 serial number [id number]. The leads and generator were then placed in subfascial pocket. The wound was closed in 3 layers and dressed per protocol. RESULT: Successful biventricular pacemaker implantation for 2:1 heart block with infra-Hisian block with underlying right bundle branch block. Normalization of the QRS with nonselective pacing noted. PLAN: IV antibiotics, chest x-ray and increase amlodipine to 10 mg p.o. daily for hypertension management. MMODL / IJN: [id number] /
--- NOTE | 2020-02-16 13:08 | P.PN ---
Subjective Progress Note Date: 02/16/20 Principal diagnosis: Symptomatic bradycardia, second degree type II AV block This is a very pleasant 84-year-old female patient who follows with Dr. Grove as her primary care provider. She has a history of hyperlipidemia, hypertension, atrial fibrillation, chronic kidney disease stage III, previous brain aneurysm status post rupture and remains on Dilantin with no history of seizures. She also follows with Dr. Plunkett in our office for history of non-small cell lung cancer. Status post right upper lobectomy. Recent CAT scan revealed no areas of suspicious nodule or mass to suggest recurrent metastatic disease. There was noted COPD with mild emphysema and fibrosis along the lung bases and pulmonary arterial hypertension. She presented to the emergency room yesterday with concerns regarding a new lump over her left eye. During her evaluation she was noted to have bradycardia and EKG revealed Mobitz type II heart block. Chest x- ray showed patchy density in the right lower lobe possibly reflecting early pneumonia. We're consulted for the same. She is seen today on the selective care unit. She is currently awake and alert resting comfortably in bed. She is maintaining O2 saturations in the mid 90s on 2 L/m per nasal cannula. She's afebrile. Heart rate in the 30s to 40s. White count 4.3. Hemoglobin 12.7. Platelet count 127. Sodium 139. Potassium 4.8. Creatinine 1.23. TSH 0.931. Digoxin 0.5. Phenytoin level 21.3. On 02/16/2020 patient seen in follow-up on acute care unit, she status post permanent pacemaker implantation, and this is postoperative day 1, No acute events overnight, no complaints of chest pain, shortness of breath, and oxygen and her pulse is 95%, patient is doing well, left upper chest incision is clean GI intact soft, no evidence of hematoma. Left arm is in a sling, patient is in the paced rhythm. Today's chest x-ray shows left-sided pacemaker with leads in the right atrial appendage, right atrium and right ventricle, and small right pleural effusion and right basilar airspace opacity, no other events overnight, she is awake and alert, oriented 3, denies any specific complaints Objective - Vital Signs Vital signs: Vital Signs Temp 96.8 F L 02/16/20 08:38 Pulse 80 02/16/20 08:38 Resp 20 02/16/20 12:00 BP 163/70 02/16/20 08:38 Pulse Ox 95 02/16/20 08:38 Intake & Output 02/15/20 02/16/20 02/16/20 18:59 06:59 18:59 Intake Total 796 100 Output Total 600 Balance 196 100 Weight 55 kg Intake: IV 556 0.9 100 Intake, IV Titration 100 Amount Doxycycline 100 mg In 100 Sodium Chloride 0.9% 100 ml @ 100 mls/hr IVPB Q12HR [facility] Rx#:[id number] Oral 240 Output: Urine 600 Other: Voiding Method Bedpan Bedpan Bedpan # Voids 1 1 2 # Bowel Movements 0 - Exam GENERAL EXAM: Alert, 84-year-old white female, sitting up in the chair, on 2 L of oxygen a pulse ox of 95% comfortable in no apparent distress. HEAD: Normocephalic/atraumatic. EYES: Normal reaction of pupils, equal size. Conjunctiva pink, sclera white. NOSE: Clear with pink turbinates. THROAT: No erythema or exudates. NECK: No masses, no JVD, no thyroid enlargement, no adenopathy. CHEST: No chest wall deformity. Symmetrical expansion. Left upper chest incision clean dry and intact, no hematoma, soft LUNGS: Equal air entry with no crackles, wheeze, rhonchi or dullness. CVS: Regular rate and rhythm, normal S1 and S2, no gallops, no murmurs, no rubs ABDOMEN: Soft, nontender. No hepatosplenomegaly, normal bowel sounds, no guarding or rigidity. EXTREMITIES: No clubbing, no edema, no cyanosis, 2+ pulses and upper and lower extremities. MUSCULOSKELETAL: Muscle strength and tone normal. SPINE: No scoliosis or deformity SKIN: No rashes CENTRAL NERVOUS SYSTEM: Alert and oriented -3. No focal deficits, tone is normal in all 4 extremities. PSYCHIATRIC: Alert and oriented -3. Appropriate affect. Intact judgment and insight. - Labs CBC & Chem 7: 02/16/20 06:15 02/16/20 06:15 Labs: Abnormal Lab Results - Last 24 Hours (Table) 02/15/20 02/16/20 02/16/20 Range/Units 20:30 06:15 06:15 Plt Count 99 L (150-450) k/uL Lymphocytes # 0.9 L (1.0-4.8) k/uL Sodium 136 L (137-145) mmol/L BUN 35 H (7-17) mg/dL Creatinine 1.06 H (0.52-1.04) mg/dL Glucose 103 H (74-99) mg/dL POC Glucose (mg/dL) 139 H (75-99) mg/dL Calcium 8.2 L (8.4-10.2) mg/dL 02/16/20 02/16/20 Range/Units 06:18 11:40 Plt Count (150-450) k/uL Lymphocytes # (1.0-4.8) k/uL Sodium (137-145) mmol/L BUN (7-17) mg/dL Creatinine (0.52-1.04) mg/dL Glucose (74-99) mg/dL POC Glucose (mg/dL) 108 H 112 H (75-99) mg/dL Calcium (8.4-10.2) mg/dL Microbiology - Last 24 Hours (Table) 02/14/20 08:30 Gram Stain - Final Sputum Sputum Culture - Final Assessment and Plan Plan: Assessment: 1 Bradycardia with Mobitz type II heart block, current heart rate in the 30s and 40s, status post permanent pacemaker insertion on 02/15/2020, postoperative day 1 2 Acute on chronic hypoxemic respiratory failure secondary to acute exacerbation of CVA COPD with possible early pneumonia in the right lower lobe 3 History of atrial fibrillation maintained on digoxin in the outpatient setting, serum digoxin level 0.5 4 History of ruptured brain aneurysm maintained on Dilantin in the outpatient setting with no history of seizures, phenytoin level 21.3 5 History of hypertension 6 Hyperlipidemia 7 Former smoker Plan: No pulmonary complaints, wean FiO2. Chest x-ray as been reviewed, stable overnight. We will defer to cardiology on discharge home decision I performed a history & physical examination of the patient and discussed their management with my nurse practitioner, Juany Norwood. I reviewed the nurse practitioner's note and agree with the documented findings and plan of care. Lung sounds are positive for diminished at the bases, clear at the top. The findings and the impression was discussed with the patient. I attest to the documentation by the nurse practitioner. Time with Patient: Less than 30
--- NOTE | 2020-02-16 13:35 | P.PN ---
Subjective Progress Note Date: 02/16/20 CHIEF COMPLAINT: Heart block HISTORY OF PRESENT ILLNESS: 84-year-old female who is status post biventricular pacemaker insertion with Dr. Toribio on 02-15-2020. Patient examined this morning. She is sitting up in the chair. Sling noted to left arm. She reports mi ld discomfort at the site of PPM insertion. Denies shortness of breath. PHYSICAL EXAM: VITAL SIGNS: Reviewed. GENERAL: Well-developed in no acute distress. NECK: Supple. No JVD or thyromegaly LUNGS: Respirations even and unlabored. Lungs essentially clear to auscultation bilaterally. HEART: Regular rate and rhythm. S1 and S2 heard. EXTREMITIES: Normal range of motion. No clubbing or cyanosis. Peripheral pulses intact. No lower extremity edema ASSESSMENT: Second degree heart block 2:1, s/p PPM Left axis deviation Hypertension Dyslipidemia PLAN: PPM interrogated this a.m. by device rep and stated it was functioning properly Chest x-ray completed this morning. Await results Anticipate discharge home this afternoon Nurse practitioner note has been reviewed by physician. Signing provider agrees with the documented findings, assessment, and plan of care. Objective - Vital Signs Vital signs: Vital Signs Temp 96.8 F L 02/16/20 08:38 Pulse 80 02/16/20 08:38 Resp 20 02/16/20 08:38 BP 163/70 02/16/20 08:38 Pulse Ox 95 02/16/20 08:38 Intake & Output 02/15/20 02/16/20 02/16/20 18:59 06:59 18:59 Intake Total 796 100 Output Total 600 Balance 196 100 Weight 55 kg Intake: IV 556 0.9 100 Intake, IV Titration 100 Amount Doxycycline 100 mg In 100 Sodium Chloride 0.9% 100 ml @ 100 mls/hr IVPB Q12HR [facility] Rx#:[id number] Oral 240 Output: Urine 600 Other: Voiding Method Bedpan Bedpan # Voids 1 1 - Labs CBC & Chem 7: 02/16/20 06:15 02/16/20 06:15 Labs: Abnormal Lab Results - Last 24 Hours (Table) 02/15/20 02/16/20 02/16/20 Range/Units 20:30 06:15 06:15 Plt Count 99 L (150-450) k/uL Lymphocytes # 0.9 L (1.0-4.8) k/uL Sodium 136 L (137-145) mmol/L BUN 35 H (7-17) mg/dL Creatinine 1.06 H (0.52-1.04) mg/dL Glucose 103 H (74-99) mg/dL POC Glucose (mg/dL) 139 H (75-99) mg/dL Calcium 8.2 L (8.4-10.2) mg/dL 02/16/20 Range/Units 06:18 Plt Count (150-450) k/uL Lymphocytes # (1.0-4.8) k/uL Sodium (137-145) mmol/L BUN (7-17) mg/dL Creatinine (0.52-1.04) mg/dL Glucose (74-99) mg/dL POC Glucose (mg/dL) 108 H (75-99) mg/dL Calcium (8.4-10.2) mg/dL Microbiology - Last 24 Hours (Table) 02/14/20 08:30 Gram Stain - Final Sputum Sputum Culture - Final
--- NOTE | 2020-02-16 15:11 | P.DS ---
Providers Date of admission: 02/13/20 13:24 Expected date of discharge: 02/16/20 Attending physician: Wiliam Valdes MD Consults: 02/13/20 12:58 Consult Physician Urgent Consulting Provider: Jacob James Consult Reason/Comments: bradycardia with av block Do you want consulting provider notified?: Yes 02/13/20 21:29 Consult Physician Routine Consulting Provider: Izabela Hart Consult Reason/Comments: known to your service, copd Do you want consulting provider notified?: Yes Primary care physician: Maine Schultz [facility] Course: HPI: This is a pleasant 84 years old female with past medical history of emphysema/COPD, cervical cancer, hypertension, atrial fibrillation, history of aneurysm of the brain status post rupture in 2019, status post lung resection due to cancer spots. She actually presents today because she has very small nodule on the left eyebrow that is hurting it is the size of about 2-3 mm only with no surrounding cellulitis and no purulent discharge. However on admission patient was noticed to be tachypneic and she states that she has chronic dyspnea however it became worse last week and is associated with cough and yellowish phlegm. Also patient was noticed with type II AV block 2-1 so decided to be admitted to the hospital Patient is hemodynamically stable, her heart rates 3841, blood pressure 180/93 Labs showing unremarkable cbc, inr, bmp, liver enzymes. Serial troponins are - 0.019 and 0.0-1. ProBNP is 1450. Digoxin level 0.5 which is below the reference range and phenytoin level is 21.3 which is slightly above the reference range EKG showing sinus rhythm at 41 with second-degree AV block with 21 AV conduction, QTC is 427. Hospital course - patient was admitted for type II second-degree heart block. Patient had a permanent pacemaker done by Dr. Walker on 02/15/2020. She was followed by pulmonary and cardiology regarding the hospital course. Patient was monitored 24 hours after the pacemaker placement and she was doing good. She has been cleared by pulmonary and cardiology to be discharged home. Patient is being discharged home with her granddaughter in a fair condition. Vital Signs 02/16/20 02/16/20 08:38 12:00 Temperature 96.8 F L Pulse Rate [ 80 Pulse Oximetery ] Respiratory 20 20 Rate Blood Pressure 163/70 [Right Arm Supine] O2 Sat by Pulse 95 Oximetry GENERAL: The patient is alert and oriented x2-3 , not in any acute distress. Well developed, well nourished. HEENT: Pupils are round and equally reacting to light. EOMI. No scleral icterus. No conjunctival pallor. CARDIOVASCULAR: S1 and S2 present. No murmurs, rubs, or gallops. PULMONARY: Chest is clear to auscultation, no wheezing or crackles. Prolonged expiration ABDOMEN: Soft, nontender, nondistended, normoactive bowel sounds. No palpable organomegaly. MUSCULOSKELETAL: No joint swelling or deformity. EXTREMITIES: No cyanosis, clubbing, or pedal edema. NEUROLOGICAL: Gross neurological examination did not reveal any focal deficits. SKIN: No rashes. No petechiae DISCHARGE DIAGNOSIS Bradycardia with Heart block type II with 2-1 block status post permanent p acemaker placement done on 02/15/2020 Emphysema with acute exacerbation of COPD, with possible development of right lower lobe pneumonia Essential hypertension, uncontrolled Chronic kidney disease, stage III History of brain aneurysm status post rupture, on prophylactic dose of Dilantin. No history of seizure Follow-up: Patient is advised to follow up with her PCP Dr. Grove in 2-3 days. Also advised to follow up with cardiology Dr. Walker in 1 week. Patient Condition at Discharge: Fair Plan - Discharge Summary New Discharge Prescriptions: New amLODIPine [Norvasc] 10 mg PO DAILY #90 tablet lisinopriL [Zestril] 10 mg PO BID 30 Days #60 tab Continue Atorvastatin Calcium [Lipitor] 20 mg PO DAILY Albuterol Sulfate [Albuterol Sulfate Hfa] 1 puff PO RT-Q6H PRN PRN Reason: Shortness Of Breath Ipratropium-Albuterol Nebulize [Duoneb 0.5 mg-3 mg/3 ml Soln] 3 ml INHALATION RT-QID PRN PRN Reason: Shortness Of Breath Aspirin EC [Ecotrin Low Dose] 81 mg PO DAILY Phenytoin [Dilantin Chew] 50 mg PO HS Phenytoin Sodium Extended [Dilantin] 100 mg PO BID Furosemide [Lasix] 20 mg PO DAILY Doxycycline [Vibramycin] 100 mg PO BID PRN PRN Reason: emphysema Discontinued Digoxin [Digitek] 125 mcg PO DAILY Discharge Medication List Albuterol Sulfate [Albuterol Sulfate Hfa] 1 puff PO RT-Q6H PRN 02/13/20 [History] Aspirin EC [Ecotrin Low Dose] 81 mg PO DAILY 02/13/20 [History] Atorvastatin Calcium [Lipitor] 20 mg PO DAILY 02/13/20 [History] Doxycycline [Vibramycin] 100 mg PO BID PRN 02/13/20 [History] Furosemide [Lasix] 20 mg PO DAILY 02/13/20 [History] Ipratropium-Albuterol Nebulize [Duoneb 0.5 mg-3 mg/3 ml Soln] 3 ml INHALATION RT-QID PRN 02/13/20 [History] Phenytoin Sodium Extended [Dilantin] 100 mg PO BID 02/13/20 [History] Phenytoin [Dilantin Chew] 50 mg PO HS 02/13/20 [History] amLODIPine [Norvasc] 10 mg PO DAILY #90 tablet 02/15/20 [Rx] lisinopriL [Zestril] 10 mg PO BID 30 Days #60 tab 02/16/20 [Rx] Follow up Appointment(s)/Referral(s): Reed Toribio MD [STAFF PHYSICIAN] - 1 Week (Follow-up with Dr. Toribio/Leilani Carcamo/Adela Howe 3-4 weeks Device clinic follow-up 1 week) Claudy Grove MD [Primary Care Provider] - 1-2 days Activity/Diet/Wound Care/Special Instructions: PATIENT EDUCATION MATERIAL Instructions following a heart rhythm device implant. 1. Keep dressing DRY for 5 DAYS. You may cover the area with Saran or Cling Wrap, prior to a shower. 2. The dressing will be removed in the Device Clinic at [facility]. Absorbable sutures were used to close the wound. 3. Avoid raising the left arm above the shoulder level. 4 week restriction 4. Avoid arm movements, like backscratching, rubbing the head, or pulling on a cord. 4 weeks restriction 5. Gentle range of motion movements of the shoulder, closest to the incision should be performed to avoid a frozen shoulder. (Pendulum exercises of the shoulder) 6. The opposite arm may be used freely. 7. Avoid driving for 7 days. 8. Avoid activities such as golfing, swimming, weed whacking, lifting more than 10 pounds weight, bowling, gymnastics and weight training/lifting. (6 weeks restriction) 9. Activities such as wood chopping with an axe, pull-ups in the gymnasium, power lifting, arc-welding, being close to home induction cooktops will always be a problem. 10. Arm sling is only a reminder not to raise the arm above the head. You do not need to keep the arm completely immobilized. Your free to move the arm and use it and for normal activities. In case of any problems, please call [facility], Elmer Wiley, @ [phone], Attention: Device Clinic Device clinic follow-up in 5 days Follow-up with primary pulp press tender in 1 months Stop digoxin Start amlodipine 10 mg daily Diagnosis 2-1 heart block with right bundle branch block Infrahisian block documented during mapping in the His bundle lead Hypertension Discharge Disposition: HOME SELF-CARE
[2020-02-16 15:36] VITALS: BP 136/76; PULSE 77; RESP 16
== END 2020-02-16 16:23 | disposition home or self-care (01) | DRG 242 ==
LOC: EC 10:36 → 3SCARD 13:24
PROVIDERS: ADMIT Internal Medicine; ATTEND Internal Medicine
PROC: 02HL3JZ Insertion of Pacemaker Lead into Left Ventricle, Percutaneous Approach (ICD-10-PCS; principal; 2020-02-15 09:30)
PROC: 0JH607Z Insertion of Cardiac Resynchronization Pacemaker Pulse Generator into Chest Subcutaneous Tissue and Fascia, Open Approach (ICD-10-PCS; principal; 2020-02-15 09:30)
PROC: 02H63JZ Insertion of Pacemaker Lead into Right Atrium, Percutaneous Approach (ICD-10-PCS; principal; 2020-02-15 09:30)
PROC: 02HK3JZ Insertion of Pacemaker Lead into Right Ventricle, Percutaneous Approach (ICD-10-PCS; principal; 2020-02-15 09:30)
DX: I44.1 Atrioventricular block, second degree (principal); J96.21 Acute and chronic respiratory failure with hypoxia; J18.9 Pneumonia, unspecified organism; I45.10 Unspecified right bundle-branch block; I48.91 Unspecified atrial fibrillation; I27.21 Secondary pulmonary arterial hypertension; I12.9 Hypertensive chronic kidney disease with stage 1 through stage 4 chronic kidney disease, or unspecified chronic kidney disease; E78.5 Hyperlipidemia, unspecified; J43.9 Emphysema, unspecified; N18.3 Chronic kidney disease, stage 3 (moderate); Z85.118 Personal history of other malignant neoplasm of bronchus and lung; Z85.41 Personal history of malignant neoplasm of cervix uteri; Z87.891 Personal history of nicotine dependence; Z86.79 Personal history of other diseases of the circulatory system; Z90.2 Acquired absence of lung [part of]; Z90.710 Acquired absence of both cervix and uterus; Z83.3 Family history of diabetes mellitus; R22.0 Localized swelling, mass and lump, head; Z90.6 Acquired absence of other parts of urinary tract; Z88.1 Allergy status to other antibiotic agents; Z88.0 Allergy status to penicillin; Z88.8 Allergy status to other drugs, medicaments and biological substances; J84.10 Pulmonary fibrosis, unspecified; Z79.899 Other long term (current) drug therapy; Z79.82 Long term (current) use of aspirin
CPT/HCPCS: 33208; 33225; 36415; 71045; 71046; 80048; 80053; 80061; 80162; 80185; 83605; 83735; 83880; 84443; 84484; 85025; 85610; 85730; 87070; 87205; 93005; 96374; 99291

== ENCOUNTER → 2020-03-24 | Outpatient (CLI) | payer MEDICARE ==
[2020-03-24 21:48] LABS: Phenytoin (Dilantin) 20.3 ug/mL (10.0-20.0)
== END | disposition home or self-care (01) ==
LOC: LABWHC1 10:31
PROVIDERS: ATTEND Psychiatry & Neurology Neurology
DX: G40.209 Localization-related (focal) (partial) symptomatic epilepsy and epileptic syndromes with complex partial seizures, not intractable, without status epilepticus (principal)
CPT/HCPCS: 36415; 80185; 84450; 84460

== ENCOUNTER 2020-07-26 16:22 | Observation (INO) | payer MEDICARE ==
[2020-07-26] MEDS ORDERED: ASPIRIN 81 MG PO STA (16:40)
[2020-07-26] MEDS ORDERED: NITROGLYCERIN OINT 1 INCH/GM PACKET TOPICAL STA (16:40)
--- NOTE | 2020-07-26 16:42 | ED ---
General Adult HPI - General Chief complaint: Chest Pain Stated complaint: Chest Pain, SOB Time Seen by Provider: 07/26/20 16:33 Source: patient, RN notes reviewed Mode of arrival: wheelchair Limitations: no limitations - History of Present Illness Initial comments: Patient is a pleasant 85-year-old female presenting to the emergency Department with complaints of chest discomfort. Onset of symptoms was around a half an hour ago and is now resolved. Patient is unclear exactly how long it lasted for. Patient has a difficult time describing the type of discomfort that she had. There was some associated dyspnea. Symptoms are essentially resolved at this time. No nausea. No diaphoresis. Unclear patient has history of similar symptoms previously. No leg pain or leg swelling. Patient does wear oxygen at home however does not have it on at this time. - Related Data Home Medications Medication Instructions Recorded Confirmed Albuterol Sulfate [Albuterol 1 puff PO RT-Q6H PRN 02/13/20 02/13/20 Sulfate Hfa] Aspirin EC [Ecotrin Low Dose] 81 mg PO DAILY 02/13/20 02/13/20 Atorvastatin Calcium [Lipitor] 20 mg PO DAILY 02/13/20 02/13/20 Doxycycline [Vibramycin] 100 mg PO BID PRN 02/13/20 02/13/20 Furosemide [Lasix] 20 mg PO DAILY 02/13/20 02/13/20 Ipratropium-Albuterol Nebulize 3 ml INHALATION RT-QID PRN 02/13/20 02/13/20 [Duoneb 0.5 mg-3 mg/3 ml Soln] Phenytoin Sodium Extended 100 mg PO BID 02/13/20 02/13/20 [Dilantin] Phenytoin [Dilantin Chew] 50 mg PO HS 02/13/20 02/13/20 Previous Rx's Medication Instructions Recorded amLODIPine [Norvasc] 10 mg PO DAILY #90 tablet 02/15/20 amLODIPine [Norvasc] 10 mg PO DAILY #90 tab 02/16/20 lisinopriL [Zestril] 10 mg PO BID 30 Days #60 tab 02/16/20 Allergies Allergy/AdvReac Type Severity Reaction Status Date / Time amoxicillin Allergy Unknown-per Verified 07/26/20 16:30 PCP clarithromycin [From Biaxin] Allergy Unknown-per Verified 07/26/20 16:30 PCP sinutab Allergy Unknown-per Uncoded 07/26/20 16:30 PCP Review of Systems ROS Statement: Those systems with pertinent positive or pertinent negative responses have been documented in the HPI. ROS Other: All systems not noted in ROS Statement are negative. Constitutional: Denies: fever Eyes: Denies: eye pain ENT: Denies: ear pain Respiratory: Reports: dyspnea Cardiovascular: Reports: chest pain Endocrine: Denies: fatigue Gastrointestinal: Denies: abdominal pain, nausea Genitourinary: Denies: dysuria Musculoskeletal: Denies: back pain Skin: Denies: rash Neurological: Denies: weakness Past Medical History Past Medical History: Atrial Fibrillation, Hypertension Additional Past Medical History / Comment(s): emphysema, cervical CA, LUNG CA History of Any Multi-Drug Resistant Organisms: None Reported Past Surgical History: Hysterectomy Additional Past Surgical History / Comment(s): bladder removed partial rt lung removed for CA Past Anesthesia/Blood Transfusion Reactions: No Reported Reaction Past Psychological History: No Psychological Hx Reported Smoking Status: Former smoker Past Alcohol Use History: None Reported Past Drug Use History: None Reported - Past Family History Mother Family Medical History: Diabetes Mellitus General Exam Limitations: no limitations General appearance: alert, in no apparent distress Head exam: Present: normocephalic Eye exam: Present: normal appearance Neck exam: Present: normal inspection Respiratory exam: Present: normal lung sounds bilaterally. Absent: chest wall tenderness Cardiovascular Exam: Present: regular rate, normal rhythm, normal heart sounds Expanded Peripheral pulses: 2+: Radial (R), Radial (L), Dorsalis Pedis (R), Dorsalis Pedis (L) GI/Abdominal exam: Present: soft. Absent: tenderness Extremities exam: Present: normal inspection. Absent: pedal edema, calf tenderness Neurological exam: Present: alert Psychiatric exam: Present: normal affect, normal mood Skin exam: Present: normal color Course Vital Signs 07/26/20 07/26/20 16:27 18:04 Temperature 97.6 F Pulse Rate 96 64 Respiratory 18 18 Rate Blood Pressure 164/66 127/64 O2 Sat by Pulse 93 L 98 Oximetry EKG Findings - EKG Comments: EKG Findings:: Sinus rhythm at 85. PVC is present. Paced rhythm. Right bundle branch block. Care 190. QRS 124. QT 398. QTC 473. Left axis. Inferior Q waves. No acute ST change. Medical Decision Making - Medical Decision Making Patient reevaluated and resting comfortably in bed, symptom-free. Patient and family updated on results and plan. Case discussed in detail with Dr. Harris, covering for Dr. Muñoz, who will admit. - Lab Data Result diagrams: 07/26/20 17:10 07/26/20 17:10 Lab Results 07/26/20 07/26/20 07/26/20 Range/Units 17:10 17:10 17:10 WBC 4.1 (3.8-10.6) k/uL RBC 4.14 (3.80-5.40) m/uL Hgb 12.7 (11.4-16.0) gm/dL Hct 37.1 (34.0-46.0) % MCV 89.8 (80.0-100.0) fL MCH 30.8 (25.0-35.0) pg MCHC 34.3 (31.0-37.0) g/dL RDW 13.4 (11.5-15.5) % Plt Count 151 (150-450) k/uL MPV 8.5 Neutrophils % 67 % Lymphocytes % 21 % Monocytes % 8 % Eosinophils % 0 % Basophils % 1 % Neutrophils # 2.8 (1.3-7.7) k/uL Lymphocytes # 0.9 L (1.0-4.8) k/uL Monocytes # 0.3 (0-1.0) k/uL Eosinophils # 0.0 (0-0.7) k/uL Basophils # 0.0 (0-0.2) k/uL PT 12.0 (9.0-12.0) sec INR 1.1 (<1.2) APTT 23.6 (22.0-30.0) sec D-Dimer 0.30 (<0.60) mg/L FEU Sodium 141 (137-145) mmol/L Potassium 4.4 (3.5-5.1) mmol/L Chloride 104 (98-107) mmol/L Carbon Dioxide 29 (22-30) mmol/L Anion Gap 8 mmol/L BUN 28 H (7-17) mg/dL Creatinine 1.05 H (0.52-1.04) mg/dL Est GFR (CKD-EPI)AfAm 55 (>60 ml/min/1.73 sqM) Est GFR (CKD-EPI)NonAf 48 (>60 ml/min/1.73 sqM) Glucose 117 H (74-99) mg/dL Calcium 8.9 (8.4-10.2) mg/dL Magnesium 1.8 (1.6-2.3) mg/dL Total Bilirubin 0.5 (0.2-1.3) mg/dL AST 29 (14-36) U/L ALT 21 (4-34) U/L Alkaline Phosphatase 98 (38-126) U/L Troponin I (0.000-0.034) ng/mL Total Protein 6.9 (6.3-8.2) g/dL Albumin 4.1 (3.5-5.0) g/dL 07/26/20 Range/Units 17:10 WBC (3.8-10.6) k/uL RBC (3.80-5.40) m/uL Hgb (11.4-16.0) gm/dL Hct (34.0-46.0) % MCV (80.0-100.0) fL MCH (25.0-35.0) pg MCHC (31.0-37.0) g/dL RDW (11.5-15.5) % Plt Count (150-450) k/uL MPV Neutrophils % % Lymphocytes % % Monocytes % % Eosinophils % % Basophils % % Neutrophils # (1.3-7.7) k/uL Lymphocytes # (1.0-4.8) k/uL Monocytes # (0-1.0) k/uL Eosinophils # (0-0.7) k/uL Basophils # (0-0.2) k/uL PT (9.0-12.0) sec INR (<1.2) APTT (22.0-30.0) sec D-Dimer (<0.60) mg/L FEU Sodium (137-145) mmol/L Potassium (3.5-5.1) mmol/L Chloride (98-107) mmol/L Carbon Dioxide (22-30) mmol/L Anion Gap mmol/L BUN (7-17) mg/dL Creatinine (0.52-1.04) mg/dL Est GFR (CKD-EPI)AfAm (>60 ml/min/1.73 sqM) Est GFR (CKD-EPI)NonAf (>60 ml/min/1.73 sqM) Glucose (74-99) mg/dL Calcium (8.4-10.2) mg/dL Magnesium (1.6-2.3) mg/dL Total Bilirubin (0.2-1.3) mg/dL AST (14-36) U/L ALT (4-34) U/L Alkaline Phosphatase (38-126) U/L Troponin I <0.012 (0.000-0.034) ng/mL Total Protein (6.3-8.2) g/dL Albumin (3.5-5.0) g/dL - Radiology Data Radiology results: image reviewed Disposition Clinical Impression: Chest pain Disposition: ADMITTED IP TO THIS HOSP Is patient prescribed a controlled substance at d/c from ED?: No Referrals: Claudy Grove MD [Primary Care Provider] - 1-2 days Decision Time: 18:35
[2020-07-26 17:20] LABS: Basophils % (A) 1 %; Eosinophils % (A) 0 %; HCT 37.1 % (34.0-46.0); HGB 12.7 gm/dL (11.4-16.0); Lymphocytes # (A) 0.9 k/uL (1.0-4.8); Lymphocytes % (A) 21 %; MCH 30.8 pg (25.0-35.0); MCHC 34.3 g/dL (31.0-37.0); MCV 89.8 fL (80.0-100.0); Mean Platelet Volume 8.5; Monocytes # (A) 0.3 k/uL (0-1.0); Monocytes % (A) 8 %; Neutrophils # (A) 2.8 k/uL (1.3-7.7); Neutrophils % (A) 67 %; Platelet Count 151 k/uL (150-450); RBC 4.14 m/uL (3.80-5.40); RDW 13.4 % (11.5-15.5); WBC 4.1 k/uL (3.8-10.6)
[2020-07-26 17:35] LABS: Albumin 4.1 g/dL (3.5-5.0); Potassium 4.4 mmol/L (3.5-5.1); Total Protein 6.9 g/dL (6.3-8.2)
[2020-07-26 17:36] LABS: Calcium 8.9 mg/dL (8.4-10.2); Magnesium 1.8 mg/dL (1.6-2.3); Total Bilirubin 0.5 mg/dL (0.2-1.3)
[2020-07-26 17:48] LABS: D-Dimer 0.3 mg/L FEU (<0.60); INR 1.1 (<1.2); Partial Thromboplastin Time 23.6 sec (22.0-30.0)
[2020-07-26] MEDS ORDERED: NITROGLYCERIN SL TABS 0.4 MG TAB SUBLINGUAL PRN (18:35)
--- NOTE | 2020-07-26 18:44 | XR ---
EXAMINATION TYPE: XR chest 2V DATE OF EXAM: 07/26/2020 COMPARISON: 02/16/2020. HISTORY: Right-sided chest pain and shortness of breath. TECHNIQUE: Frontal and lateral views of the chest are obtained. FINDINGS: There is diffuse mild hazy opacity. No pleural effusion, or pneumothorax seen. The cardia c silhouette size is mildly enlarged. Left pacemaker and prior post surgical changes overlying the me diastinum seen. The osseous structures are intact. IMPRESSION: Mild hazy opacity, probably atelectasis versus interstitial edema.
[2020-07-27] MEDS: NITROGLYCERIN OINT 1 INCH/GM PACKET TOPICAL SCH ×3 (01:11→12:50)
[2020-07-27 04:48] LABS: Cholesterol 144 mg/dL (<200); HDL Cholesterol 58 mg/dL (40-60); LDL Cholesterol,Calculated 66 mg/dL (0-99); Triglycerides 100 mg/dL (<150)
[2020-07-27 07:38] VITALS: RESP 18
[2020-07-27] MEDS ORDERED: DOBUTamine DRIP for NUC MED 500 MG in DEXTROSE/WATER 1 250ML.BAG IV PRN (07:53)
[2020-07-27] MEDS ORDERED: PHENYTOIN SODIUM EXTENDED 100 MG CAP PO SCH (09:00)
[2020-07-27] MEDS ORDERED: VITAMIN E (DL,TOCOPHERYL ACET) 400 UNIT CAP PO SCH (09:00)
[2020-07-27] MEDS ORDERED: METOPROLOL SUCCINATE (ER) 50 MG TAB.ER.24H PO SCH (09:00)
[2020-07-27] MEDS ORDERED: ASPIRIN 325 MG TAB PO SCH (09:00)
[2020-07-27] MEDS ORDERED: DIGOXIN 125 MCG TAB PO SCH (09:00)
[2020-07-27] MEDS ORDERED: amLODIPine 10 MG TAB PO SCH (09:00)
[2020-07-27] MEDS ORDERED: FUROSEMIDE 20 MG TAB PO SCH (09:00)
--- NOTE | 2020-07-27 10:12 | ECHOF ---
Referral Reason:chest pain MEASUREMENTS -------- HEIGHT: 167.6 cm WEIGHT: 70.3 kg BP: RVIDd: 2.1 cm (< 3.3) IVSd: 1.3 cm (0.6 - 1.1) LVIDd: 3.2 cm (3.9 - 5.3) LVPWd: 1.3 cm (0.6 - 1.1) IVSs: 1.7 cm LVIDs: 1.6 cm LVPWs: 1.9 cm LAESV Index (A-L): 40.11 ml/m Ao Diam: 3.0 cm (2.0 - 3.7) AV Cusp: 1.6 cm (1.5 - 2.6) LA Diam: 3.9 cm (2.7 - 3.8) MV E Ignacio: 1.45 m/s MV DecT: 188 ms MV A Ignacio: 1.26 m/s MV E/A Ratio: 1.15 RAP: 5.00 mmHg RVSP: 34.93 mmHg FINDINGS -------- This was a technically good study. The left ventricular size is normal. There is mild concentric left ventricular hypertrophy. Overa ll left ventricular systolic function is normal with, an EF between 55 - 60 %. Increased LAP Grade 2 Diastolic Dysfunction. The right ventricle is normal in size. LA is severely dilated >40 ml/m2 The right atrial size is normal. Interatrial and interventricular septum intact. The aortic valve is trileaflet and appears structurally normal. The mitral valve is normal. The mitral valve leaflets are moderately thickened. Mild mitral regur gitation is present. The tricuspid valve appears structurally normal. Mild tricuspid regurgitation present. Right vent ricular systolic pressure is normal at < 35 mmHg. There is no pulmonic regurgitation present. The aortic root size is normal. Normal inferior vena cava with normal inspiratory collapse consistent with estimated right atrial pre ssure of 5 mmHg. There is a small, generalized pericardial effusion present. CONCLUSIONS -------- 1. The left ventricular size is normal. 2. There is mild concentric left ventricular hypertrophy. 3. Overall left ventricular systolic function is normal with, an EF between 55 - 60 %. 4. Increased LAP Grade 2 Diastolic Dysfunction. 5. LA is severely dilated >40 ml/m2 6. The mitral valve leaflets are moderately thickened. 7. Mild mitral regurgitation is present. 8. Mild tricuspid regurgitation present. 9. There is a small, generalized pericardial effusion present. SEAT PACK INSPECTOR: Gabby Gan RDCS
--- NOTE | 2020-07-27 11:22 | CONS ---
CONSULTATION CHIEF COMPLAINT: Chest pain. 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 She states that she was eating and having dinner with her family and initially had left- sided chest pain and subsequently had right-sided chest pain that she describes as a very vague sensation of discomfort. It lasted for a while and because she had this the first time the day before yesterday and again had the same pain yesterday called my office and then subsequently came to the ER. Since coming here, she had been chest pain free. Troponins have been negative. D-dimer is negative. Coronavirus is negative. EKG shows paced rhythm. Chest x-ray shows mild hazy opacity of unclear clinical significance. She has history of emphysema and uses oxygen at home intermittently. Given the unexplained chest discomfort, I am going to schedule her for a dobutamine echo this morning, and if this is abnormal, consider further evaluation. PAST MEDICAL HISTORY: Significant for permanent pacemaker, hypertension, dyslipidemia. MEDICATIONS: Medications at home include Dilantin, Lipitor 20 mg daily, Digitek, Norvasc 10 daily, Toprol-XL 50 daily, Lasix 20 daily and aspirin. ALLERGIES: Allergic to AMOXICILLIN, ERYTHROMYCIN and SINU-TAB. FAMILY HISTORY: Negative for premature coronary artery disease. SOCIAL HISTORY: Negative for smoking, EtOH abuse, or drug abuse. REVIEW OF SYSTEMS: HEENT is unremarkable. CARDIAC: As described above. RESPIRATORY: As described above. GI: Negative. GENITOURINARY: Negative. ALLERGY/IMMUNOLOGY: Negative. SKIN: Negative . MUSCULOSKELETAL: Negative. ENDOCRINE: Negative. DERMATOLOGY: Negative. CONSTITUTIONAL: Negative. ONCOLOGICAL: Negative. KILN FIRER: Negative. Rest of the system review is not relevant. PHYSICAL EXAMINATION: On exam, comfortable at rest. Heart rate is 80 beats per minute. Blood pressure is 137/72. Respiratory rate is 18. There is no jugular venous distention. Carotid upstroke is normal. There is no bruit. Chest exam reveals good air entry bilaterally. Heart exam reveals first and second heart sounds. No gallop. Has a systolic murmur at the apex. ABDOMEN: Soft. Examination of extremities did not reveal any edema. Peripheral pulses are felt. LABS: Labs show a hemoglobin of 12.7, platelet count is 150. Potassium is 4.4. Troponins are negative. Coronavirus test is negative. ASSESSMENT: Precordial chest pain, rule out coronary artery disease. PLAN: I will obtain a dobutamine echo and will decide on further course of action based on the dobutamine findings. TRINIDAD / ELLIOTTN: [id number] /
[2020-07-27 15:14] VITALS: BP 149/73; PULSE 80; TEMP 97.5
--- NOTE | 2020-07-27 15:17 | P.HPIM ---
History of Present Illness Patient is a pleasant 85-year-old female came in with complaints of chest pain which is dull moderate severity on the right side of the chest. This pain started after eating. Patient just pain is not associated with diaphoresis sha dows of breath or lightheadedness did have some nausea. Patient was admitted for the chest pain ruled out acute current symptoms troponins were negative EKGs did not show any significant abnormality d-dimer is negative patient was a valid by cardiology patient underwent stress test which was negative patient had a dobutamine echo which was negative. Patient had grade 2 diastolic dysfunction patient on 20 mg of Lasix with the mildly elevated creatinine of around 1. Patient is clinically doing well tolerating diet well and patient will be discharged on Pepcid for about 15 days. Review of Systems REVIEW OF SYSTEMS: CONSTITUTIONAL: No fever, no malaise, no fatigue. HEENT: No recent visual problems or hearing problems. Denied any sore throat. CARDIOVASCULAR: No orthopnea, PND, no palpitations, no syncope. PULMONARY: No shortness of breath, no cough, no hemoptysis. GASTROINTESTINAL: No diarrhea NEUROLOGICAL: No headaches, no weakness, no numbness. HEMATOLOGICAL: Denies any bleeding or petechiae. GENITOURINARY: Denies any burning micturition, frequency, or urgency. MUSCULOSKELETAL/RHEUMATOLOGICAL: Denies any joint pain, swelling, or any muscle pain. ENDOCRINE: Denies any polyuria or polydipsia. The rest of the 14-point review of systems is negative. Past Medical History Past Medical History: Atrial Fibrillation, Hypertension Additional Past Medical History / Comment(s): emphysema, cervical CA, LUNG CA History of Any Multi-Drug Resistant Organisms: None Reported Past Surgical History: Cholecystectomy, Hysterectomy, Pacemaker Additional Past Surgical History / Comment(s): partial rt lung removed for CA. Brain Aneurysm removed x3 1989 Past Anesthesia/Blood Transfusion Reactions: No Reported Reaction Type of Cardiac Device: Biventricular Pacemaker Device Placement Date:: Feb 2020 Past Psychological History: No Psychological Hx Reported Smoking Status: Former smoker Past Alcohol Use History: None Reported Past Drug Use History: None Reported - Past Family History Mother Family Medical History: Diabetes Mellitus Medications and Allergies Home Medications Medication Instructions Recorded Confirmed Type Aspirin EC [Ecotrin Low Dose] 81 mg PO DAILY 02/13/20 07/26/20 History Atorvastatin Calcium [Lipitor] 20 mg PO HS 02/13/20 07/26/20 History Furosemide [Lasix] 20 mg PO DAILY 02/13/20 07/26/20 History Phenytoin Sodium Extended 100 mg PO BID 02/13/20 07/26/20 History [Dilantin] Phenytoin [Dilantin Chew] 50 mg PO HS 02/13/20 07/26/20 History amLODIPine [Norvasc] 10 mg PO DAILY #90 tab 02/16/20 07/26/20 Rx Digoxin [Digitek] 125 mcg PO DAILY 07/26/20 07/26/20 History Metoprolol Succinate [Toprol XL] 50 mg PO DAILY 07/26/20 07/26/20 History Vitamin E 400 unit PO DAILY 07/26/20 07/26/20 History Famotidine [Pepcid] 20 mg PO BID #30 tablet 07/27/20 Rx Allergies Allergy/AdvReac Type Severity Reaction Status Date / Time amoxicillin Allergy Unknown-per Verified 07/26/20 19:47 PCP clarithromycin [From Biaxin] Allergy Unknown-per Verified 07/26/20 19:47 PCP sinutab Allergy Unknown-per Uncoded 07/26/20 19:47 PCP Physical Exam Vitals: Vital Signs Temp Pulse Pulse Resp BP BP Pulse Ox 07/27/20 07:37 97.8 F 94 18 163/80 95 07/27/20 02:00 97.6 F 82 16 137/76 97 07/26/20 21:55 97.6 F 78 16 139/68 97 07/26/20 19:41 97.6 F 84 16 136/63 97 07/26/20 18:04 64 18 127/64 98 07/26/20 16:27 97.6 F 96 18 164/66 93 L Intake and Output 07/27/20 07/27/20 07/27/20 06:59 14:59 22:59 Other: Voiding Method Toilet Toilet # Voids 1 Weight 70.31 kg PHYSICAL EXAMINATION: GENERAL: The patient is alert and oriented x3, not in any acute distress. Well developed, well nourished. HEENT: Pupils are round and equally reacting to light. EOMI. No scleral icterus. No conjunctival pallor. Normocephalic, atraumatic. No pharyngeal erythema. No thyromegaly. CARDIOVASCULAR: S1 and S2 present. No murmurs, rubs, or gallops. PULMONARY: Chest is clear to auscultation, no wheezing or crackles. ABDOMEN: Soft, nontender, nondistended, normoactive bowel sounds. No palpable organomegaly. MUSCULOSKELETAL: No joint swelling or deformity. EXTREMITIES: No cyanosis, clubbing, or pedal edema. NEUROLOGICAL: Gross neurological examination did not reveal any focal deficits. SKIN: No rashes. Results CBC & Chem 7: 07/26/20 17:10 07/26/20 17:10 Labs: Abnormal Lab Results - Last 24 Hours (Table) 07/26/20 07/26/20 Range/Units 17:10 17:10 Lymphocytes # 0.9 L (1.0-4.8) k/uL BUN 28 H (7-17) mg/dL Creatinine 1.05 H (0.52-1.04) mg/dL Glucose 117 H (74-99) mg/dL Thrombosis Risk Factor Assmnt - Choose All That Apply Each Risk Factor Represents 3 Points: Age 75 years or older Thrombosis Risk Factor Assessment Total Risk Factor Score: 3 Thrombosis Risk Factor Assessment Level: Moderate Risk Assessment and Plan Plan: -Chest pain: Rule out acute medicine syndromes stresses is negative patient will be discharged today patient just pain is most probably secondary to gastroesophageal reflux disease and patient will be discharged on Pepcid as mentioned above - history of high-grade AV block and patient does have a pacemaker in place. History of atrial fibrillation proximal not an anticoagulation presently rate controlled. -Hypertension -Seizure disorder
--- NOTE | 2020-07-27 15:18 | P.DS ---
Providers Date of admission: 07/26/20 18:35 Attending physician: Romario Harris Consults: 07/26/20 18:35 Consult Physician Urgent Consulting Provider: Jose Carlos Thomas Consult Reason/Comments: cp Do you want consulting provider notified?: Yes Primary care physician: [facility] Course: As mentioned in HPI Plan - Discharge Summary New Discharge Prescriptions: New Famotidine [Pepcid] 20 mg PO BID #30 tablet Continue Atorvastatin Calcium [Lipitor] 20 mg PO HS Aspirin EC [Ecotrin Low Dose] 81 mg PO DAILY Phenytoin [Dilantin Chew] 50 mg PO HS Phenytoin Sodium Extended [Dilantin] 100 mg PO BID Furosemide [Lasix] 20 mg PO DAILY amLODIPine [Norvasc] 10 mg PO DAILY #90 tab Digoxin [Digitek] 125 mcg PO DAILY Vitamin E 400 unit PO DAILY Metoprolol Succinate [Toprol XL] 50 mg PO DAILY Discharge Medication List Aspirin EC [Ecotrin Low Dose] 81 mg PO DAILY 02/13/20 [History] Atorvastatin Calcium [Lipitor] 20 mg PO HS 02/13/20 [History] Furosemide [Lasix] 20 mg PO DAILY 02/13/20 [History] Phenytoin Sodium Extended [Dilantin] 100 mg PO BID 02/13/20 [History] Phenytoin [Dilantin Chew] 50 mg PO HS 02/13/20 [History] amLODIPine [Norvasc] 10 mg PO DAILY #90 tab 02/16/20 [Rx] Digoxin [Digitek] 125 mcg PO DAILY 07/26/20 [History] Metoprolol Succinate [Toprol XL] 50 mg PO DAILY 07/26/20 [History] Vitamin E 400 unit PO DAILY 07/26/20 [History] Famotidine [Pepcid] 20 mg PO BID #30 tablet 07/27/20 [Rx] Follow up Appointment(s)/Referral(s): Claudy Grove MD [Primary Care Provider] - 3 Days Discharge Disposition: HOME SELF-CARE
[2020-07-27] MEDS ORDERED: PHENYTOIN 50 MG CHEWABLE PO SCH (21:00)
[2020-07-27] MEDS ORDERED: ATORVASTATIN 20 MG TAB PO SCH (21:00)
[2020-07-28] MEDS ORDERED: ASPIRIN 81 MG PO SCH (09:00)
--- NOTE | 2020-07-29 08:19 | ECHOS ---
STRESS ECHOCARDIOGRAM LUMASON: N/A Vial INDICATIONS: Chest pain. MEDICATIONS: BASELINE HEART RATE: 83 BASELINE BLOOD PRESSURE: 155/72 MAXIMUM HEART RATE: 122 MAXIMUM BLOOD PRESSURE: 182/73 85% MPHR: 113 100% MPHR: 133 METS: N/A MAXIMUM STAGE REACHED: TOTAL EXERCISE TIME: 8:00 CLINICAL INFORMATION: Baseline EKG shows sinus rhythm with right bundle branch block. The patient was given intravenous dobutamine over a period of 8 minutes as per protocol, did not have chest pain and the EKG changes were nondiagnostic. The patient had frequent PVCs. Baseline echo shows normal left ventricular size, wall motion and systolic function. Post dobutamine infusion. There is normal hyperdynamic response of all segments of myocardium noted. CONCLUSIONS: 1. Inconclusive EKG part of the stress test due to baseline EKG abnormalities. 2. Negative dobutamine stress echo. TRINIDAD / CARLA: [id number] /
== END 2020-07-27 16:02 | disposition home or self-care (01) ==
LOC: EC 16:22 → 6NMEDSUR 18:35
PROVIDERS: ADMIT Internal Medicine; ATTEND Internal Medicine
DX: R07.89 Other chest pain (principal); K21.9 Gastro-esophageal reflux disease without esophagitis; I10 Essential (primary) hypertension; J43.9 Emphysema, unspecified; I48.91 Unspecified atrial fibrillation; G40.909 Epilepsy, unspecified, not intractable, without status epilepticus; E78.5 Hyperlipidemia, unspecified; R79.89 Other specified abnormal findings of blood chemistry; R91.8 Other nonspecific abnormal finding of lung field; Z95.0 Presence of cardiac pacemaker; Z90.2 Acquired absence of lung [part of]; Z90.710 Acquired absence of both cervix and uterus; Z87.891 Personal history of nicotine dependence; Z86.79 Personal history of other diseases of the circulatory system; Z90.49 Acquired absence of other specified parts of digestive tract; Z85.41 Personal history of malignant neoplasm of cervix uteri; Z85.118 Personal history of other malignant neoplasm of bronchus and lung; Z79.82 Long term (current) use of aspirin; Z83.3 Family history of diabetes mellitus; Z79.899 Other long term (current) drug therapy; Z20.822 Contact with and (suspected) exposure to COVID-19
CPT/HCPCS: 93005 ×2; 99285; 36415; 93306; 93351; 85379; 80061; 80053; 83735; 84484; 85025; 85610; 85730; 87635; 71046; G0378 ×2; J1250

== ENCOUNTER → 2021-02-04 | Outpatient (CLI) | payer MEDICARE ==
[2021-02-05 19:45] LABS: Phenytoin (Dilantin) 16.5 ug/mL (10.0-20.0)
== END | disposition home or self-care (01) ==
LOC: LABWHC1 08:56
PROVIDERS: ATTEND Psychiatry & Neurology Neurology
DX: G40.209 Localization-related (focal) (partial) symptomatic epilepsy and epileptic syndromes with complex partial seizures, not intractable, without status epilepticus (principal)
CPT/HCPCS: 36415; 80185; 84450; 84460

== ENCOUNTER 2021-04-26 11:05 | Emergency (ER) | payer MEDICARE ==
--- NOTE | 2021-04-26 12:17 | XR ---
EXAMINATION TYPE: XR chest 2V DATE OF EXAM: 04/26/2021 COMPARISON: Chest x-ray 07/26/2020, CT chest 12/09/2019 HISTORY: Chest pain, dizziness TECHNIQUE: Frontal and lateral views of the chest are obtained. FINDINGS: There is no focal air space opacity, pleural effusion, or pneumothorax seen. The cardiac silhouette size is stable, enlarged. There is a generator in the left pectoral region, leads are pre sent in the right atrium and ventricle. Aorta is dense. There is a spinal curvature. Surgical clips p resent over the right hilar region, there is volume loss in the right hemithorax. Apical pleural thic kening is again noted, prominent lung volumes suggest underlying COPD, there is flattening the hemidi aphragms. Interstitium mildly increased. Right hemidiaphragm is mildly elevated. The osseous structur es are intact. Surgical clips present in the right of quadrant. IMPRESSION: No acute cardiopulmonary process. There is emphysema. Interstitial lung disease.
[2021-04-26 14:16] LABS: Basophils % (A) 1 %; Eosinophils % (A) 0 %; HCT 40.5 % (34.0-46.0); Lymphocytes # (A) 1.3 k/uL (1.0-4.8); Lymphocytes % (A) 26 %; MCH 31.2 pg (25.0-35.0); MCHC 34.7 g/dL (31.0-37.0); MCV 90.1 fL (80.0-100.0); Mean Platelet Volume 9.1; Monocytes # (A) 0.3 k/uL (0-1.0); Monocytes % (A) 7 %; Neutrophils # (A) 3.3 k/uL (1.3-7.7); Neutrophils % (A) 64 %; Platelet Count 182 k/uL (150-450); RBC 4.49 m/uL (3.80-5.40); RDW 13.8 % (11.5-15.5); WBC 5.1 k/uL (3.8-10.6)
--- NOTE | 2021-04-26 14:18 | ED ---
General Adult HPI - General Chief complaint: Shortness of Breath Stated complaint: SOB Time Seen by Provider: 04/26/21 13:00 Source: patient, family, RN notes reviewed, old records reviewed Mode of arrival: wheelchair Limitations: no limitations - History of Present Illness Initial comments: Patient is an 85-year-old female with history of A. fib, hypertension, presenting to the emergency department after having a sharp intermittent pain in the left side of her ribs yesterday. She states it is very intermittent sharp- like pains in the left side of her ribs. She denies any shortness of breath, no chest pain at this time. She denies any recent fevers or chills, no cough or chest congestion. She does have a pacemaker. Also feeling discomfort on the left clavicle. She denies any falls or trauma. Patient denies any abdominal pain, no nausea or vomiting. She has no further complaints at this time. Upon arrival to the ER, vital signs were stable. - Related Data Home Medications Medication Instructions Recorded Confirmed Atorvastatin Calcium [Lipitor] 20 mg PO HS 02/13/20 04/26/21 Furosemide [Lasix] 20 mg PO DAILY 02/13/20 04/26/21 Phenytoin [Dilantin Chew] 50 mg PO HS 02/13/20 04/26/21 Metoprolol Succinate [Toprol XL] 50 mg PO DAILY 07/26/20 04/26/21 Phenytoin Sodium Extended 100 mg PO BID 04/26/21 04/26/21 [Dilantin] lisinopriL [Zestril] 10 mg PO BID 04/26/21 04/26/21 Previous Rx's Medication Instructions Recorded amLODIPine [Norvasc] 10 mg PO DAILY #90 tab 02/16/20 Allergies Allergy/AdvReac Type Severity Reaction Status Date / Time amoxicillin Allergy Unknown-per Verified 04/26/21 13:39 PCP clarithromycin [From Biaxin] Allergy Unknown-per Verified 04/26/21 13:39 PCP sinutab Allergy Unknown-per Uncoded 04/26/21 13:39 PCP Review of Systems ROS Statement: Those systems with pertinent positive or pertinent negative responses have been documented in the HPI. ROS Other: All systems not noted in ROS Statement are negative. Past Medical History Past Medical History: Atrial Fibrillation, Hypertension Additional Past Medical History / Comment(s): emphysema, cervical CA, LUNG CA History of Any Multi-Drug Resistant Organisms: None Reported Past Surgical History: Cholecystectomy, Hysterectomy, Pacemaker Additional Past Surgical History / Comment(s): partial rt lung removed for CA. Brain Aneurysm removed x3 1989 Past Anesthesia/Blood Transfusion Reactions: No Reported Reaction Type of Cardiac Device: Biventricular Pacemaker Device Placement Date:: Feb 2020 Past Psychological History: No Psychological Hx Reported Smoking Status: Former smoker Past Alcohol Use History: None Reported Past Drug Use History: None Reported - Past Family History Mother Family Medical History: Diabetes Mellitus General Exam - General Exam Comments Initial Comments: GENERAL: Patient is well-developed and well-nourished. Patient is nontoxic and in no acute distress. HEAD: Atraumatic, normocephalic. EYES: Pupils equal round and reactive to light, extraocular movements intact, sclera anicteric, conjunctiva are normal. Eyelids were unremarkable. ENT: Moist mucous membranes. NECK: Normal range of motion, supple without lymphadenopathy or JVD. LUNGS: Unlabored respirations. Breath sounds clear to auscultation bilaterally and equal. No wheezes rales or rhonchi. HEART: Regular rate and rhythm without murmurs, rubs or gallops. ABDOMEN: Soft, nontender, normoactive bowel sounds. No guarding, no rebound. No masses appreciated. : Deferred MUSCULOSKELETAL: Normal extremities with adequate strength and normal range of motion, no pitting or edema. No clubbing or cyanosis. Patient has some mild tenderness over the medial left clavicle. There is no redness or signs of infection, she has full active range of motion of her left shoulder. NEUROLOGICAL: Patient is alert and oriented x 3. Motor and sensory are also intact. Cranial nerves II through XII grossly intact. Symmetrical smile. Normal speech, normal gait. PSYCH: Normal mood, normal affect. SKIN: Warm, Dry, normal turgor, no rashes or lesions noted. Limitations: no limitations Course Vital Signs 04/26/21 04/26/21 04/26/21 11:34 14:00 15:00 Temperature 97.6 F Pulse Rate 73 70 Respiratory 13 20 20 Rate Blood Pressure 163/70 136/80 O2 Sat by Pulse 95 99 Oximetry 04/26/21 16:30 Temperature 98.0 F Pulse Rate 73 Respiratory 20 Rate Blood Pressure 145/74 O2 Sat by Pulse 98 Oximetry EKG Findings - EKG Comments: EKG Findings:: normal sinus rhythm, septal infarct, age undetermined, no signs of acute ST segment elevation.ventricular rate 72, HI interval 174, QT 408. Medical Decision Making - Medical Decision Making patient is an 85-year-old female with history of heart disease, pacemaker, presenting with intermittent sharp pains in the left side of her ribs that happened yesterday. Her vitals are stable today. She has no chest pain or shortness of breath today. Her exam was unremarkable. EKG reads normal sinus rhythm, chest x-ray showed no acute findings. Patient's lab work is unremarkable, including negative troponin. Rapid: Is negative. She's been asymptomatic here. Her vital signs remain stable. I feel he patient is stable for discharge. She'll follow up with her primary care. I also recommended looking for a rash on the skin as her description it could be shingles. Patient and patient's granddaughter are in agreement with this plan of care. Return parameters were discussed with her and she verbalized understanding. Case discussed with Dr. Smith. - Lab Data Result diagrams: 04/26/21 13:53 04/26/21 13:53 Lab Results 04/26/21 04/26/21 04/26/21 Range/Units 13:53 13:53 13:53 WBC 5.1 (3.8-10.6) k/uL RBC 4.49 (3.80-5.40) m/uL Hgb 14.0 (11.4-16.0) gm/dL Hct 40.5 (34.0-46.0) % MCV 90.1 (80.0-100.0) fL MCH 31.2 (25.0-35.0) pg MCHC 34.7 (31.0-37.0) g/dL RDW 13.8 (11.5-15.5) % Plt Count 182 (150-450) k/uL MPV 9.1 Neutrophils % 64 % Lymphocytes % 26 % Monocytes % 7 % Eosinophils % 0 % Basophils % 1 % Neutrophils # 3.3 (1.3-7.7) k/uL Lymphocytes # 1.3 (1.0-4.8) k/uL Monocytes # 0.3 (0-1.0) k/uL Eosinophils # 0.0 (0-0.7) k/uL Basophils # 0.0 (0-0.2) k/uL PT 11.5 (9.0-12.0) sec INR 1.1 (<1.2) APTT 24.2 (22.0-30.0) sec Sodium 140 (137-145) mmol/L Potassium 4.9 (3.5-5.1) mmol/L Chloride 102 (98-107) mmol/L Carbon Dioxide 30 (22-30) mmol/L Anion Gap 8 mmol/L BUN 17 (7-17) mg/dL Creatinine 0.89 (0.52-1.04) mg/dL Est GFR (CKD-EPI)AfAm 67 (>60 ml/min/1.73 sqM) Est GFR (CKD-EPI)NonAf 59 (>60 ml/min/1.73 sqM) Glucose 133 H (74-99) mg/dL Calcium 9.4 (8.4-10.2) mg/dL Magnesium 2.0 (1.6-2.3) mg/dL Total Bilirubin 0.5 (0.2-1.3) mg/dL AST 25 (14-36) U/L ALT 16 (4-34) U/L Alkaline Phosphatase 127 H (38-126) U/L Troponin I (0.000-0.034) ng/mL NT-Pro-B Natriuret Pep pg/mL Total Protein 7.6 (6.3-8.2) g/dL Albumin 4.4 (3.5-5.0) g/dL Coronavirus (PCR) (Not Detectd) 04/26/21 04/26/21 04/26/21 Range/Units 13:53 13:53 13:53 WBC (3.8-10.6) k/uL RBC (3.80-5.40) m/uL Hgb (11.4-16.0) gm/dL Hct (34.0-46.0) % MCV (80.0-100.0) fL MCH (25.0-35.0) pg MCHC (31.0-37.0) g/dL RDW (11.5-15.5) % Plt Count (150-450) k/uL MPV Neutrophils % % Lymphocytes % % Monocytes % % Eosinophils % % Basophils % % Neutrophils # (1.3-7.7) k/uL Lymphocytes # (1.0-4.8) k/uL Monocytes # (0-1.0) k/uL Eosinophils # (0-0.7) k/uL Basophils # (0-0.2) k/uL PT (9.0-12.0) sec INR (<1.2) APTT (22.0-30.0) sec Sodium (137-145) mmol/L Potassium (3.5-5.1) mmol/L Chloride (98-107) mmol/L Carbon Dioxide (22-30) mmol/L Anion Gap mmol/L BUN (7-17) mg/dL Creatinine (0.52-1.04) mg/dL Est GFR (CKD-EPI)AfAm (>60 ml/min/1.73 sqM) Est GFR (CKD-EPI)NonAf (>60 ml/min/1.73 sqM) Glucose (74-99) mg/dL Calcium (8.4-10.2) mg/dL Magnesium (1.6-2.3) mg/dL Total Bilirubin (0.2-1.3) mg/dL AST (14-36) U/L ALT (4-34) U/L Alkaline Phosphatase (38-126) U/L Troponin I <0.012 (0.000-0.034) ng/mL NT-Pro-B Natriuret Pep 496 pg/mL Total Protein (6.3-8.2) g/dL Albumin (3.5-5.0) g/dL Coronavirus (PCR) Not Detected (Not Detectd) Disposition Clinical Impression: Dyspnea Disposition: HOME SELF-CARE Condition: Stable Instructions (If sedation given, give patient instructions): Shortness of Breath (ED) Additional Instructions: Please return to the Emergency Department if symptoms worsen or any other concerns. Follow-up with your primary care in 1-3 days. Is patient prescribed a controlled substance at d/c from ED?: No Referrals: Claudy Grove MD [Primary Care Provider] - 1-2 days Time of Disposition: 15:53
[2021-04-26 14:32] LABS: INR 1.1 (<1.2); Partial Thromboplastin Time 24.2 sec (22.0-30.0); Prothrombin Time 11.5 sec (9.0-12.0)
[2021-04-26 14:37] LABS: Albumin 4.4 g/dL (3.5-5.0); Calcium 9.4 mg/dL (8.4-10.2); Potassium 4.9 mmol/L (3.5-5.1); Total Bilirubin 0.5 mg/dL (0.2-1.3); Total Protein 7.6 g/dL (6.3-8.2)
[2021-04-26 16:29] VITALS: RESP 20
[2021-04-26 16:31] VITALS: BP 145/74; PULSE 73; TEMP 98
== END 2021-04-26 16:30 | disposition home or self-care (01) ==
LOC: EC 11:05
DX: R06.00 Dyspnea, unspecified (principal); Z20.822 Contact with and (suspected) exposure to COVID-19; M25.512 Pain in left shoulder; I10 Essential (primary) hypertension; I48.91 Unspecified atrial fibrillation; Z87.891 Personal history of nicotine dependence; Z79.899 Other long term (current) drug therapy
CPT/HCPCS: 36415; 71046; 80053; 83735; 83880; 84484; 85025; 85610; 85730; 87635; 93005; 99285

== ENCOUNTER 2021-07-22 06:48 | Observation (INO) | payer MEDICARE ==
[2021-07-22] MEDS ORDERED: ASPIRIN 81 MG PO STA (07:14)
--- NOTE | 2021-07-22 07:33 | ED ---
General Adult HPI - General Chief complaint: Chest Pain Stated complaint: Chest Pain,SOB Time Seen by Provider: 07/22/21 07:06 Source: patient, family, RN notes reviewed Mode of arrival: wheelchair Limitations: no limitations - History of Present Illness Initial comments: Patient is a pleasant 85-year-old female presenting to the emergency Department with chest discomfort. Onset of symptoms was this morning. Symptoms are gone at this time however they have been mildly waxing and waning. Patient has a difficult time describing her symptoms. Patient did have some associated palpitations, nausea without vomiting and shortness of breath. No history of similar symptoms previously. Patient does have mild leg swelling however this is chronic and somewhat better than normal - Related Data Home Medications Medication Instructions Recorded Confirmed Atorvastatin Calcium [Lipitor] 20 mg PO HS 02/13/20 04/26/21 Furosemide [Lasix] 20 mg PO DAILY 02/13/20 04/26/21 Phenytoin [Dilantin Chew] 50 mg PO HS 02/13/20 04/26/21 Metoprolol Succinate [Toprol XL] 50 mg PO DAILY 07/26/20 04/26/21 Phenytoin Sodium Extended 100 mg PO BID 04/26/21 04/26/21 [Dilantin] lisinopriL [Zestril] 10 mg PO BID 04/26/21 04/26/21 Previous Rx's Medication Instructions Recorded amLODIPine [Norvasc] 10 mg PO DAILY #90 tab 02/16/20 Allergies Allergy/AdvReac Type Severity Reaction Status Date / Time amoxicillin Allergy Unknown-per Verified 07/22/21 06:57 PCP clarithromycin [From Biaxin] Allergy Unknown-per Verified 07/22/21 06:57 PCP sinutab Allergy Unknown-per Uncoded 07/22/21 06:57 PCP Review of Systems ROS Statement: Those systems with pertinent positive or pertinent negative responses have been documented in the HPI. ROS Other: All systems not noted in ROS Statement are negative. Constitutional: Denies: fever Eyes: Denies: eye pain ENT: Denies: ear pain Respiratory: Denies: cough Cardiovascular: Reports: chest pain, palpitations Endocrine: Denies: fatigue Gastrointestinal: Reports: nausea. Denies: abdominal pain Genitourinary: Denies: dysuria Musculoskeletal: Denies: back pain Skin: Denies: rash Neurological: Denies: headache Past Medical History Past Medical History: Atrial Fibrillation, Hypertension Additional Past Medical History / Comment(s): emphysema, cervical CA, LUNG CA History of Any Multi-Drug Resistant Organisms: None Reported Past Surgical History: Cholecystectomy, Hysterectomy, Pacemaker Additional Past Surgical History / Comment(s): partial rt lung removed for CA. Brain Aneurysm removed x3 1989 Past Anesthesia/Blood Transfusion Reactions: No Reported Reaction Type of Cardiac Device: Biventricular Pacemaker Device Placement Date:: Feb 2020 Past Psychological History: No Psychological Hx Reported Smoking Status: Former smoker Past Alcohol Use History: None Reported Past Drug Use History: None Reported - Past Family History Mother Family Medical History: Diabetes Mellitus General Exam Limitations: no limitations General appearance: alert, in no apparent distress Head exam: Present: normocephalic Eye exam: Present: normal appearance Neck exam: Present: normal inspection Respiratory exam: Present: normal lung sounds bilaterally. Absent: chest wall tenderness Cardiovascular Exam: Present: regular rate, normal rhythm Expanded Peripheral pulses: 2+: Radial (R), Radial (L), Dorsalis Pedis (R), Dorsalis Pedis (L) GI/Abdominal exam: Present: soft. Absent: tenderness Extremities exam: Present: normal inspection. Absent: pedal edema, calf tenderness Neurological exam: Present: alert Psychiatric exam: Present: normal affect, normal mood Skin exam: Present: normal color Course Vital Signs 07/22/21 06:50 Temperature 97.3 F L Pulse Rate 81 Respiratory 24 Rate Blood Pressure 165/71 O2 Sat by Pulse 95 Oximetry EKG Findings - EKG Comments: EKG Findings:: Paced rhythm with a rate of 79. MO 148. Her S1 44. QT 416. QTC 451. Right axis. Normal QRS. No acute ST change. Medical Decision Making - Medical Decision Making Patient reevaluated and resting comfortably in bed. Patient family updated on results and plan. Dr. Félix zepeda paged for admission covering for Dr. costa - Lab Data Result diagrams: 07/22/21 07:30 07/22/21 07:30 Lab Results 07/22/21 07/22/21 07/22/21 Range/Units 07:30 07:30 07:30 WBC 3.8 (3.8-10.6) k/uL RBC 3.94 (3.80-5.40) m/uL Hgb 12.5 (11.4-16.0) gm/dL Hct 37.5 (34.0-46.0) % MCV 95.0 (80.0-100.0) fL MCH 31.6 (25.0-35.0) pg MCHC 33.3 (31.0-37.0) g/dL RDW 14.0 (11.5-15.5) % Plt Count 165 (150-450) k/uL MPV 8.6 Neutrophils % 63 % Lymphocytes % 27 % Monocytes % 7 % Eosinophils % 0 % Basophils % 1 % Neutrophils # 2.4 (1.3-7.7) k/uL Lymphocytes # 1.0 (1.0-4.8) k/uL Monocytes # 0.3 (0-1.0) k/uL Eosinophils # 0.0 (0-0.7) k/uL Basophils # 0.0 (0-0.2) k/uL PT 12.0 (9.0-12.0) sec INR 1.1 (<1.2) APTT 24.2 (22.0-30.0) sec D-Dimer 0.46 (<0.60) mg/L FEU Sodium 141 (137-145) mmol/L Potassium 4.2 (3.5-5.1) mmol/L Chloride 109 H (98-107) mmol/L Carbon Dioxide 25 (22-30) mmol/L Anion Gap 7 mmol/L BUN 19 H (7-17) mg/dL Creatinine 0.84 (0.52-1.04) mg/dL Est GFR (CKD-EPI)AfAm 72 (>60 ml/min/1.73 sqM) Est GFR (CKD-EPI)NonAf 63 (>60 ml/min/1.73 sqM) Glucose 129 H (74-99) mg/dL Calcium 8.8 (8.4-10.2) mg/dL Magnesium 1.8 (1.6-2.3) mg/dL Total Bilirubin 0.3 (0.2-1.3) mg/dL AST 23 (14-36) U/L ALT 17 (4-34) U/L Alkaline Phosphatase 104 (38-126) U/L Troponin I (0.000-0.034) ng/mL NT-Pro-B Natriuret Pep pg/mL Total Protein 6.6 (6.3-8.2) g/dL Albumin 3.7 (3.5-5.0) g/dL Phenytoin 7.8 ug/mL 07/22/21 07/22/21 Range/Units 07:30 07:30 WBC (3.8-10.6) k/uL RBC (3.80-5.40) m/uL Hgb (11.4-16.0) gm/dL Hct (34.0-46.0) % MCV (80.0-100.0) fL MCH (25.0-35.0) pg MCHC (31.0-37.0) g/dL RDW (11.5-15.5) % Plt Count (150-450) k/uL MPV Neutrophils % % Lymphocytes % % Monocytes % % Eosinophils % % Basophils % % Neutrophils # (1.3-7.7) k/uL Lymphocytes # (1.0-4.8) k/uL Monocytes # (0-1.0) k/uL Eosinophils # (0-0.7) k/uL Basophils # (0-0.2) k/uL PT (9.0-12.0) sec INR (<1.2) APTT (22.0-30.0) sec D-Dimer (<0.60) mg/L FEU Sodium (137-145) mmol/L Potassium (3.5-5.1) mmol/L Chloride (98-107) mmol/L Carbon Dioxide (22-30) mmol/L Anion Gap mmol/L BUN (7-17) mg/dL Creatinine (0.52-1.04) mg/dL Est GFR (CKD-EPI)AfAm (>60 ml/min/1.73 sqM) Est GFR (CKD-EPI)NonAf (>60 ml/min/1.73 sqM) Glucose (74-99) mg/dL Calcium (8.4-10.2) mg/dL Magnesium (1.6-2.3) mg/dL Total Bilirubin (0.2-1.3) mg/dL AST (14-36) U/L ALT (4-34) U/L Alkaline Phosphatase (38-126) U/L Troponin I <0.012 (0.000-0.034) ng/mL NT-Pro-B Natriuret Pep 711 pg/mL Total Protein (6.3-8.2) g/dL Albumin (3.5-5.0) g/dL Phenytoin ug/mL - Radiology Data Radiology results: image reviewed (Chest x-ray shows no acute pulmonary disease) Disposition Clinical Impression: Chest pain Disposition: ADMITTED IP TO THIS HOSP Is patient prescribed a controlled substance at d/c from ED?: No Referrals: Claudy Grove MD [Primary Care Provider] - 1-2 days Decision Time: 08:21
[2021-07-22 07:39] LABS: Basophils % (A) 1 %; Eosinophils % (A) 0 %; HCT 37.5 % (34.0-46.0); HGB 12.5 gm/dL (11.4-16.0); Lymphocytes % (A) 27 %; MCH 31.6 pg (25.0-35.0); MCHC 33.3 g/dL (31.0-37.0); Mean Platelet Volume 8.6; Monocytes # (A) 0.3 k/uL (0-1.0); Monocytes % (A) 7 %; Neutrophils # (A) 2.4 k/uL (1.3-7.7); Neutrophils % (A) 63 %; Platelet Count 165 k/uL (150-450); RBC 3.94 m/uL (3.80-5.40); WBC 3.8 k/uL (3.8-10.6)
--- NOTE | 2021-07-22 07:47 | XR ---
EXAMINATION TYPE: XR chest 2V DATE OF EXAM: 07/22/2021 COMPARISON: 04/26/2021 HISTORY: Shortness of breath TECHNIQUE: Frontal and lateral views of the chest are obtained. FINDINGS: Scattered senescent parenchymal changes noted. Hyperinflation compatible with COPD. No evidence for infiltrate. No evidence for atelectasis. Heart size is stable. Mediastinal structures are stable and grossly unremarkable. No evidence for hilar prominence. Degenerative changes dorsal spine. IMPRESSION: 1. No evidence for acute pulmonary disease.
[2021-07-22 07:54] LABS: Albumin 3.7 g/dL (3.5-5.0); Calcium 8.8 mg/dL (8.4-10.2); Magnesium 1.8 mg/dL (1.6-2.3); Phenytoin (Dilantin) 7.8 ug/mL; Potassium 4.2 mmol/L (3.5-5.1); Total Bilirubin 0.3 mg/dL (0.2-1.3); Total Protein 6.6 g/dL (6.3-8.2)
[2021-07-22 07:55] LABS: INR 1.1 (<1.2); Partial Thromboplastin Time 24.2 sec (22.0-30.0)
[2021-07-22] MEDS ORDERED: NITROGLYCERIN SL TABS 0.4 MG TAB SUBLINGUAL PRN (08:22)
--- NOTE | 2021-07-22 10:21 | P.CRDCN ---
History of Present Illness Consult date: 07/22/21 History of present illness: This is an 85-year-old female with a history of permanent pacemaker implantation who presented with a discomfort in the chest. 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 She is followed on a regular basis by Dr. Olivia She presented in July 2020 with atypical chest pain and had a normal dobutamine stress echocardiogram. This morning she had a funny feeling in the chest according to her clearly chest discomfort with feeling warm. Subsequently she went to bed and when she woke up she had recurrence of the symptoms and she came into the emergency room. She has chronic dyspnea on exertion and use oxygen as needed. She has a prior history of lung cancer, status post surgery and a history of COPD on home O2. She is followed by Dr. Plunkett up on a regular basis. She has occasional peripheral edema, better now. She denies any PND or orthopnea. She denies any dizziness or syncope. In 2020 her systolic function was normal. Her coronary risk factors are positive for hypertension and hyperlipidemia. She is no longer a smoker. Her medications include Zestril 10 mg twice a day, amlodipine 10 mg daily and Lipitor 20 mg daily. Her troponin is less than 0.012, NT proBNP 711 and BUN 19, creatinine 0.84. Her hemoglobin is 12.5 Chest x-ray shows no evidence of infiltrate. EKG revealed sinus mechanism with 100% pacing Review of system: Respiratory: She has a history of chronic dyspnea on home O2. GI: No nausea, vomiting. No history of peptic ulcer disease. No recent GI bleed. : No hematuria or dysuria. Nervous System: No stroke . Physical examination: 85-year-old female, alert oriented no apparent distress, blood pressure 129/69 Head: Normocephalic. Eyes: Sclerae nonicteric. Neck: Good carotid upstroke, no bruit, no jugular venous distention. Lungs: Clear to auscultation. Heart: Regular rate and rhythm, S1-S2, no S3, no rub. Systolic ejection murmur at the base Abdomen: Soft nontender, positive bowel sounds no organomegaly. Extremities: Trace edema, intact distal pulses. Impression: 1. Chest discomfort, atypical for ischemic heart disease. Patient had a normal stress dobutamine echocardiogram 1 year ago 2. [ Status post permanent pacemaker implantation, stable 3. [History of hypertension 4. [ History of hyperlipidemia 5. [History of lung cancer status post surgery with a history of COPD Plan: 1. Obtain an echocardiogram with Doppler 2. Continue home medications 3. Follow cardiac enzymes 4. And if there is no abnormality on the enzymes with no change in the systolic function then no further cardiac workup will be needed. 5. Thank you for this consult we will follow with you. Past Medical History Past Medical History: Atrial Fibrillation, Hypertension Additional Past Medical History / Comment(s): emphysema, cervical CA, LUNG CA History of Any Multi-Drug Resistant Organisms: None Reported Past Surgical History: Cholecystectomy, Hysterectomy, Pacemaker Additional Past Surgical History / Comment(s): partial rt lung removed for CA. Brain Aneurysm removed x3 1989 Past Anesthesia/Blood Transfusion Reactions: No Reported Reaction Type of Cardiac Device: Biventricular Pacemaker Device Placement Date:: Feb 2020 Past Psychological History: No Psychological Hx Reported Smoking Status: Former smoker Past Alcohol Use History: None Reported Past Drug Use History: None Reported - Past Family History Mother Family Medical History: Diabetes Mellitus Medications and Allergies Home Medications Medication Instructions Recorded Confirmed Type Atorvastatin Calcium [Lipitor] 20 mg PO HS 02/13/20 07/22/21 History Phenytoin [Dilantin Chew] 50 mg PO HS 02/13/20 07/22/21 History amLODIPine [Norvasc] 10 mg PO DAILY #90 tab 02/16/20 07/22/21 Rx Metoprolol Succinate [Toprol XL] 50 mg PO DAILY 07/26/20 07/22/21 History Phenytoin Sodium Extended 100 mg PO QAM 04/26/21 07/22/21 History [Dilantin] lisinopriL [Zestril] 10 mg PO BID 04/26/21 07/22/21 History Naproxen Sodium [Anaprox DS] 550 mg PO DAILY PRN 07/22/21 07/22/21 History Allergies Allergy/AdvReac Type Severity Reaction Status Date / Time amoxicillin Allergy Unknown-per Verified 07/22/21 09:10 PCP clarithromycin [From Biaxin] Allergy Unknown-per Verified 07/22/21 09:10 PCP sinutab Allergy Unknown-per Uncoded 07/22/21 06:57 PCP Physical Exam Vitals: Vital Signs Temp Pulse Resp BP Pulse Ox 07/22/21 09:51 78 18 129/69 98 07/22/21 06:50 97.3 F L 81 24 165/71 95 Intake and Output 07/21/21 07/22/21 07/22/21 22:59 06:59 14:59 Other: Weight 70.76 kg Results 07/22/21 07:30 07/22/21 07:30 Cardiac Enzymes 07/22/21 07/22/21 Range/Units 07:30 07:30 AST 23 (14-36) U/L Troponin I <0.012 (0.000-0.034) ng/mL Coagulation 07/22/21 Range/Units 07:30 PT 12.0 (9.0-12.0) sec APTT 24.2 (22.0-30.0) sec CBC 07/22/21 Range/Units 07:30 WBC 3.8 (3.8-10.6) k/uL RBC 3.94 (3.80-5.40) m/uL Hgb 12.5 (11.4-16.0) gm/dL Hct 37.5 (34.0-46.0) % Plt Count 165 (150-450) k/uL Comprehensive Metabolic Panel 07/22/21 Range/Units 07:30 Sodium 141 (137-145) mmol/L Potassium 4.2 (3.5-5.1) mmol/L Chloride 109 H (98-107) mmol/L Carbon Dioxide 25 (22-30) mmol/L BUN 19 H (7-17) mg/dL Creatinine 0.84 (0.52-1.04) mg/dL Glucose 129 H (74-99) mg/dL Calcium 8.8 (8.4-10.2) mg/dL AST 23 (14-36) U/L ALT 17 (4-34) U/L Alkaline Phosphatase 104 (38-126) U/L Total Protein 6.6 (6.3-8.2) g/dL Albumin 3.7 (3.5-5.0) g/dL Current Medications Generic Name Dose Route Start Last Admin Trade Name Freq PRN Reason Stop Dose Admin Aspirin 325 mg 07/23/21 09:00 Aspirin 325 Mg Tab PO DAILY NICKOLAS Nitroglycerin 0.4 mg 07/22/21 08:22 Nitroglycerin Sl Tabs 0.4 Mg Tab SUBLINGUAL Q5M PRN Chest Pain Sodium Chloride 10 ml 07/22/21 09:00 07/22/21 09:16 Sodium Chloride 0.9% Flush 10 Ml Syringe IV Not Given BID NICKOLAS Intake and Output 07/21/21 07/22/21 07/22/21 22:59 06:59 14:59 Other: Weight 70.76 kg 07/22/21 07:30 07/22/21 07:30
--- NOTE | 2021-07-22 12:47 | ECHOF ---
Referral Reason:cp MEASUREMENTS -------- HEIGHT: 167.6 cm WEIGHT: 70.8 kg BP: 129/69 RVIDd: 2.3 cm (< 3.3) IVSd: 1.3 cm (0.6 - 1.1) LVIDd: 4.6 cm (3.9 - 5.3) LVPWd: 1.3 cm (0.6 - 1.1) IVSs: 1.8 cm LVIDs: 1.7 cm LVPWs: 2.0 cm LAESV Index (A-L): 32.17 ml/m Ao Diam: 3.1 cm (2.0 - 3.7) AV Cusp: 1.9 cm (1.5 - 2.6) MV EXCURSION: 15.228 mm (> 18.000) MV EF SLOPE: 59 mm/s (70 - 150) EPSS: 0.3 cm MV E Ignacio: 1.43 m/s MV DecT: 201 ms MV A Ignacio: 0.92 m/s MV E/A Ratio: 1.56 RAP: 20.00 mmHg RVSP: 55.32 mmHg FINDINGS -------- Sinus rhythm. Pacerwire seen in RV and RA. This was a technically adequate study. The left ventricular size is normal. There is mild concentric left ventricular hypertrophy. Overa ll left ventricular systolic function is normal with, an EF between 55 - 60 %. The right ventricle is normal in size. LA is midly dilated 29-33ml/m2. The right atrial size is normal. Interatrial and interventricular septum intact. There is mild aortic valve sclerosis. Moderate mitral annular calcification present. Xjov-[id number] mitral regurgitation is present. The tricuspid valve appears structurally normal. Moderate tricuspid regurgitation present. There is moderate pulmonary hypertension. The right ventricular systolic pressure, as measured by Doppler , is 55.32mmHg. There is no pulmonic regurgitation present. The aortic root size is normal. The inferior vena cava is dilated with no significant inspiratory collapse which is consistent estima paty right atrial pressure of >20 mmHg. There is no pericardial effusion. CONCLUSIONS -------- 1. Pacerwire seen in RV and RA. 2. There is mild concentric left ventricular hypertrophy. 3. Overall left ventricular systolic function is normal with, an EF between 55 - 60 %. 4. LA is midly dilated 29-33ml/m2. 5. Moderate mitral annular calcification present. 6. Hhza-gz-[id number] mitral regurgitation is present. 7. Moderate tricuspid regurgitation present. 8. There is moderate pulmonary hypertension. 9. The inferior vena cava is dilated with no significant inspiratory collapse which is consistent est imated right atrial pressure of >20 mmHg. SERIALS LIBRARIAN: Grisel Meadows RDCS
--- NOTE | 2021-07-22 12:47 | P.HPIM ---
History of Present Illness This is a pleasant 85 his old female with past medical history of seizure, hypertension, Atrial Fibrillation, emphysema, cervical CA, LUNG CA, status post Biventricular Pacemaker. Information were taken with the help of the sound which is at bedside. Patient presents because of chest pain which started today. Central nonradiating look like an electric shock. Now with no chest pain. She has some weakness earlier but improved. No dyspnea or coughing. No abdominal pain. No change in urine or bowel habits. No fever No smoking, alcohol or illicit drugs Vitas looks stable. CBC, BMP and liver enzymes are unremarkable. 2 are negative less than 0.012. D-dimer is negative 0.46. Dilantin level 7.8. Which is subtherapeutic Bishop varus not detected. Chest x-ray: No acute process. in Emergency room she received aspirin 325 mg. Review of Systems CONSTITUTIONAL: No fever, no malaise, no fatigue. HEENT: No recent visual problems or hearing problems. Denied any sore throat. CARDIOVASCULAR: No orthopnea, PND, no palpitations, no syncope. PULMONARY: No shortness of breath, no cough, no hemoptysis. GASTROINTESTINAL: No diarrhea, no nausea, no vomiting, no abdominal pain. Normoactive bowel sounds. NEUROLOGICAL: No headaches, no weakness, no numbness. HEMATOLOGICAL: Denies any bleeding or petechiae. GENITOURINARY: Denies any burning micturition, frequency, or urgency. MUSCULOSKELETAL/RHEUMATOLOGICAL: Denies any joint pain, swelling, or any muscle pain. ENDOCRINE: Denies any polyuria or polydipsia. Past Medical History Past Medical History: Atrial Fibrillation, Hypertension Additional Past Medical History / Comment(s): emphysema, cervical CA, LUNG CA History of Any Multi-Drug Resistant Organisms: None Reported Past Surgical History: Cholecystectomy, Hysterectomy, Pacemaker Additional Past Surgical History / Comment(s): partial rt lung removed for CA. Brain Aneurysm removed x3 1989 Past Anesthesia/Blood Transfusion Reactions: No Reported Reaction Type of Cardiac Device: Biventricular Pacemaker Device Placement Date:: Feb 2020 Past Psychological History: No Psychological Hx Reported Smoking Status: Former smoker Past Alcohol Use History: None Reported Past Drug Use History: None Reported - Past Family History Mother Family Medical History: Diabetes Mellitus Father Additional Family Medical History / Comment(s): Hiatal hernia Medications and Allergies Home Medications Medication Instructions Recorded Confirmed Type Atorvastatin Calcium [Lipitor] 20 mg PO HS 02/13/20 07/22/21 History Phenytoin [Dilantin Chew] 50 mg PO HS 02/13/20 07/22/21 History amLODIPine [Norvasc] 10 mg PO DAILY #90 tab 02/16/20 07/22/21 Rx Metoprolol Succinate [Toprol XL] 50 mg PO DAILY 07/26/20 07/22/21 History Phenytoin Sodium Extended 100 mg PO QAM 04/26/21 07/22/21 History [Dilantin] lisinopriL [Zestril] 10 mg PO BID 04/26/21 07/22/21 History Naproxen Sodium [Anaprox DS] 550 mg PO DAILY PRN 07/22/21 07/22/21 History Allergies Allergy/AdvReac Type Severity Reaction Status Date / Time amoxicillin Allergy Unknown-per Verified 07/22/21 09:10 PCP clarithromycin [From Biaxin] Allergy Unknown-per Verified 07/22/21 09:10 PCP sinutab Allergy Unknown-per Uncoded 07/22/21 06:57 PCP Physical Exam Vitals: Vital Signs Temp Pulse Resp BP Pulse Ox 07/22/21 09:51 78 18 129/69 98 07/22/21 06:50 97.3 F L 81 24 165/71 95 Intake and Output 07/21/21 07/22/21 07/22/21 22:59 06:59 14:59 Other: Weight 70.76 kg 70.76 kg GENERAL: The patient is alert and oriented x3, not in any acute distress. Well developed, well nourished. HEENT: Pupils are round and equally reacting to light. EOMI. No scleral icterus. No conjunctival pallor. Normocephalic, atraumatic. No pharyngeal erythema. No thyromegaly. CARDIOVASCULAR: S1 and S2 present. No murmurs, rubs, or gallops. PULMONARY: Chest is clear to auscultation, no wheezing or crackles. ABDOMEN: Soft, nontender, nondistended, normoactive bowel sounds. No palpable organomegaly. MUSCULOSKELETAL: No joint swelling or deformity. EXTREMITIES: No cyanosis, clubbing, or pedal edema. NEUROLOGICAL: Gross neurological examination did not reveal any focal deficits. SKIN: No rashes. No petechiae Results CBC & Chem 7: 07/22/21 07:30 07/22/21 07:30 Labs: Abnormal Lab Results - Last 24 Hours (Table) 07/22/21 Range/Units 07:30 Chloride 109 H (98-107) mmol/L BUN 19 H (7-17) mg/dL Glucose 129 H (74-99) mg/dL Thrombosis Risk Factor Assmnt - Choose All That Apply Any of the Below Risk Factors Present?: Yes Each Factor Represents 1 point: Abnormal pulmonary function (COPD) Other Risk Factors: Yes Each Risk Factor Represents 2 Points: Malignancy Each Risk Factor Represents 3 Points: Age 75 years or older Other congenital or acquired thrombophilia - If yes, enter type in comment: No Thrombosis Risk Factor Assessment Total Risk Factor Score: 6 Thrombosis Risk Factor Assessment Level: High Risk Assessment and Plan Assessment: Chest pain, rule out cardiac causes Hypertension History of atrifibrillation, not on anticoagulation History of seizure History of emphysema History of cervical cancer History of lung cancer Status post biventricular pacemaker Plan: This is a pleasant 85 years old female who presents with chest pain technical laboratory asst recommended to repeat troponin and echocardiogram and if no abnormal taste then might be considered for dischargeal Labs and medication were reviewed.. Continue same treatment. Continue with symptomatic treatment. Resume home medication. Monitor lytes and vitals. DVT and GI prophylaxis. Further recommendations depends on the clinical course of the patient DVT prophylaxis: Subcutaneous heparin GI Prophylaxis: Pepcid
[2021-07-22] MEDS: PHENYTOIN SODIUM EXTENDED 100 MG CAP PO SCH (14:12)
[2021-07-22] MEDS: lisinopriL 10 MG TAB PO SCH (19:36)
[2021-07-22] MEDS ORDERED: ATORVASTATIN 20 MG TAB PO SCH (21:00)
[2021-07-22] MEDS ORDERED: PHENYTOIN 50 MG CHEWABLE PO SCH (21:00)
[2021-07-23 01:39] VITALS: PULSE 85
[2021-07-23 07:27] VITALS: BP 185/79; RESP 15; TEMP 97.7
[2021-07-23] MEDS: PHENYTOIN SODIUM EXTENDED 100 MG CAP PO SCH (07:59)
[2021-07-23] MEDS: lisinopriL 10 MG TAB PO SCH (07:59)
[2021-07-23] MEDS ORDERED: amLODIPine 10 MG TAB PO SCH (09:00)
[2021-07-23] MEDS ORDERED: ASPIRIN 81 MG PO SCH (09:00)
[2021-07-23] MEDS ORDERED: METOPROLOL SUCCINATE (ER) 50 MG TAB.ER.24H PO SCH (09:00)
[2021-07-23] MEDS ORDERED: ASPIRIN 325 MG TAB PO SCH (09:00)
[2021-07-23] MEDS ORDERED: METOPROLOL SUCCINATE (ER) 25 MG TAB.ER.24H PO STA (10:06)
[2021-07-23 12:15] LABS: Chol/HDL Ratio 2.09 Ratio; LDL Cholesterol,Calculated 42.9 mg/dL (0.0-131.0); VLDL Calculation 11.94 mg/dL (5.00-40.00)
--- NOTE | 2021-07-23 22:50 | P.DS ---
Providers Date of admission: 07/22/21 08:23 Attending physician: Maddi Heard Consults: 07/22/21 08:22 Consult Physician Urgent Consulting Provider: Jose Carlos Thomas Consult Reason/Comments: cp Do you want consulting provider notified?: Yes Primary care physician: [place] Loco Hospital Course: Diagnoses: Chest pain, cardiac causes ruled out and patient cleared by rotary drier feeder for discharge. Chest pain resolved Hypertension History of atrifibrillation, not on anticoagulation History of seizure History of emphysema History of cervical cancer History of lung cancer Status post biventricular pacemaker Hospital course: This is a pleasant 85 his old female with past medical history of seizure, hypertension, Atrial Fibrillation, emphysema, cervical CA, LUNG CA, status post Biventricular Pacemaker. Information were taken with the help of the sound which is at bedside. Patient presents because of chest pain. Evaluated by rotary drier feeder, echocardiogram showed ejection fraction 55% to 60% with moderate mitral regurgitation Patient chest pain improved, denies any other symptoms. Cleared by rotary drier feeder for discharge Problems and management plan were discussed with the patient and he verbalized understanding and acceptance Patient was found stable and can be discharged home however he needs follow-up as an outpatient. Patient was instructed to follow up with PCP Dr. Muñoz within one week and patient agrees Patient instructed to follow up with her rotary drier feeder Dr. Thomas in one to 2 weeks and she agrees Physical exam Gen: patient is a AAOx3, no distress CVS: S1-S2, RRR, no murmur Lungs: B/L CTA, no wheezing Abdomen: soft, no distention, no tenderness, positive bowel sounds Extremity: no leg edema or induration Time spent more than 35 minutes Plan - Discharge Summary Discharge Rx Participant: No New Discharge Prescriptions: Continue Atorvastatin Calcium [Lipitor] 20 mg PO HS Phenytoin [Dilantin Chew] 50 mg PO HS amLODIPine [Norvasc] 10 mg PO DAILY #90 tab Phenytoin Sodium Extended [Dilantin] 100 mg PO QAM lisinopriL [Zestril] 10 mg PO BID Changed Metoprolol Succinate [Toprol XL] 75 mg PO DAILY #30 Discontinued Naproxen Sodium [Anaprox DS] 550 mg PO DAILY PRN PRN Reason: Pain Discharge Medication List Atorvastatin Calcium [Lipitor] 20 mg PO HS 02/13/20 [History] Phenytoin [Dilantin Chew] 50 mg PO HS 02/13/20 [History] amLODIPine [Norvasc] 10 mg PO DAILY #90 tab 02/16/20 [Rx] Phenytoin Sodium Extended [Dilantin] 100 mg PO QAM 04/26/21 [History] lisinopriL [Zestril] 10 mg PO BID 04/26/21 [History] Metoprolol Succinate [Toprol XL] 75 mg PO DAILY #30 07/23/21 [Rx] Follow up Appointment(s)/Referral(s): Claudy Grove MD [Primary Care Provider] - 1-2 days Yannick Olivia MD [STAFF PHYSICIAN] - 07/29/21 11:15 am Activity/Diet/Wound Care/Special Instructions: Heart healthy diet Activity is restricted till you see your doctor Discharge Disposition: HOME SELF-CARE
== END 2021-07-23 11:14 | disposition home or self-care (01) ==
LOC: EC 06:48 → 6NMEDSUR 08:23
PROVIDERS: ADMIT Hospitalist; ATTEND Hospitalist
DX: R07.89 Other chest pain (principal); I10 Essential (primary) hypertension; I08.3 Combined rheumatic disorders of mitral, aortic and tricuspid valves; I48.91 Unspecified atrial fibrillation; I27.20 Pulmonary hypertension, unspecified; J43.9 Emphysema, unspecified; I44.30 Unspecified atrioventricular block; E78.5 Hyperlipidemia, unspecified; R56.9 Unspecified convulsions; R00.2 Palpitations; R11.0 Nausea; M79.89 Other specified soft tissue disorders; Z79.899 Other long term (current) drug therapy; Z88.0 Allergy status to penicillin; Z88.1 Allergy status to other antibiotic agents; Z88.8 Allergy status to other drugs, medicaments and biological substances; Z85.41 Personal history of malignant neoplasm of cervix uteri; Z90.49 Acquired absence of other specified parts of digestive tract; Z90.710 Acquired absence of both cervix and uterus; Z95.0 Presence of cardiac pacemaker; Z90.2 Acquired absence of lung [part of]; Z87.891 Personal history of nicotine dependence; Z85.118 Personal history of other malignant neoplasm of bronchus and lung; Z98.890 Other specified postprocedural states; Z83.79 Family history of other diseases of the digestive system; Z83.3 Family history of diabetes mellitus
CPT/HCPCS: 99285; 36415; 93005; 93306; 85379; 83880; 80061; 80053; 80185; 83735; 84484; 85025; 85610; 85730; 87635; 71046; G0378 ×2

== ENCOUNTER → 2021-09-05 | Outpatient (CLI) | payer MEDICARE ==
[2021-09-05 17:50] LABS: Phenytoin (Dilantin) 6.8 ug/mL (10.0-20.0)
== END | disposition home or self-care (01) ==
LOC: LABWHC1 09:48
PROVIDERS: ATTEND Psychiatry & Neurology Neurology
DX: G40.209 Localization-related (focal) (partial) symptomatic epilepsy and epileptic syndromes with complex partial seizures, not intractable, without status epilepticus (principal)
CPT/HCPCS: 36415; 80185; 84450; 84460

== ENCOUNTER → 2021-09-22 | Outpatient (CLI) | payer MEDICARE | END | disposition home or self-care (01) | LOC: LABWHC1 09:58 | PROVIDERS: ATTEND Psychiatry & Neurology Neurology | DX: G40.209 Localization-related (focal) (partial) symptomatic epilepsy and epileptic syndromes with complex partial seizures, not intractable, without status epilepticus (principal) | CPT/HCPCS: 36415; 80185 ==

== ENCOUNTER → 2022-11-01 | Outpatient (CLI) | payer MEDICARE ==
[2022-11-01 19:55] LABS: Phenytoin (Dilantin) 17.3 ug/mL (10.0-20.0)
== END | disposition home or self-care (01) ==
LOC: LABWHC1 13:59
PROVIDERS: ATTEND Psychiatry & Neurology Neurology
DX: G40.209 Localization-related (focal) (partial) symptomatic epilepsy and epileptic syndromes with complex partial seizures, not intractable, without status epilepticus (principal)
CPT/HCPCS: 36415; 80185; 80186; 84460

== ENCOUNTER → 2022-11-02 | Outpatient (CLI) | payer MEDICARE ==
[2022-11-03 02:24] LABS: HCT 36.6 % (37.2-46.3); HGB 11.7 g/dL (12.0-15.0); MCV 96.8 fL (80.0-97.0); NRBC Per 100 WBC 0.4 /100 WBCS (0.0-0.0); Platelet Count 174 X 10*3/uL (140-440); RBC 3.78 X 10*6/uL (4.10-5.20); RDW 13.9 % (11.5-14.5); WBC 4.52 X 10*3/uL (4.50-10.00)
[2022-11-03 03:57] LABS: Erythrocyte Sedimentation Rate 14 mm/Hr (0-30)
== END | disposition home or self-care (01) ==
LOC: LABWHC1 14:25
PROVIDERS: ATTEND Ophthalmology
DX: M31.6 Other giant cell arteritis (principal); H47.011 Ischemic optic neuropathy, right eye
CPT/HCPCS: 36415; 85027; 85652; 86140

== ENCOUNTER 2022-11-06 21:59 | Emergency (ER) | payer MEDICARE ==
[2022-11-06 22:12] VITALS: TEMP 98.1
[2022-11-06 23:39] LABS: Basophils % (A) 0 %; Eosinophils % (A) 0 %; HCT 37.7 % (34.0-46.0); HGB 12.6 gm/dL (11.4-16.0); Lymphocytes # (A) 1.3 k/uL (1.0-4.8); Lymphocytes % (A) 22 %; MCH 31.6 pg (25.0-35.0); MCHC 33.5 g/dL (31.0-37.0); MCV 94.3 fL (80.0-100.0); Mean Platelet Volume 9.3; Monocytes # (A) 0.5 k/uL (0-1.0); Monocytes % (A) 8 %; Neutrophils # (A) 4.2 k/uL (1.3-7.7); Neutrophils % (A) 67 %; Platelet Count 144 k/uL (150-450); RDW 13.9 % (11.5-15.5); WBC 6.2 k/uL (3.8-10.6)
[2022-11-06 23:48] LABS: ALT 19 U/L (4-34); AST 22 U/L (14-36); African American GFR (CKD) 55 (>60 ml/min/1.73 sqM); Albumin 3.8 g/dL (3.5-5.0); Alkaline Phosphatase 134 U/L (38-126); Anion Gap 9 mmol/L; Blood Urea Nitrogen 27 mg/dL (7-17); Calcium 8.7 mg/dL (8.4-10.2); Carbon Dioxide 24 mmol/L (22-30); Chloride 107 mmol/L (98-107); Glucose 132 mg/dL (74-99); Non-African American GFR(CKD) 48 (>60 ml/min/1.73 sqM); Potassium 4.3 mmol/L (3.5-5.1); Sodium 140 mmol/L (137-145); Total Bilirubin 0.3 mg/dL (0.2-1.3); Total Protein 6.6 g/dL (6.3-8.2)
[2022-11-07 00:22] LABS: INR 1.3 (<1.2); Prothrombin Time 12.8 sec (9.0-12.0)
[2022-11-07] MEDS ORDERED: SODIUM CHLORIDE 0.9% 1,000 ML IV STA (01:51)
--- NOTE | 2022-11-07 03:05 | US ---
EXAM: US Pelvis Transvaginal CLINICAL HISTORY: ITS.REASON US Reason: vaginal bleeding TECHNIQUE: Real-time transvaginal pelvic ultrasound with image documentation. Transvaginal imaging was used for better evaluation of the endometrium and adnexa. COMPARISON: No relevant prior studies available. FINDINGS: Uterus/cervix: Uterus has been removed. Right ovary: No pelvic mass. Ovaries are not identified. Left ovary: See above. IMPRESSION: Status post hysterectomy. No pelvic mass is identified.
--- NOTE | 2022-11-07 04:00 | CT ---
EXAM: CT Abdomen and Pelvis With Intravenous Contrast CLINICAL HISTORY: ITS.REASON CT Reason: vaginal bleeding, history of uterine cancer TECHNIQUE: Axial computed tomography images of the abdomen and pelvis with intravenous contrast. CTDI is 11.8 mGy and DLP is 461.8 mGy-cm. This CT exam was performed using one or more of the following dose reduction techniques: automated exposure control, adjustment of the mA and/or kV according to patient size, and/or use of iterative reconstruction technique. COMPARISON: No relevant prior studies available. FINDINGS: Lung bases: Lung bases demonstrate bilateral dependent atelectasis. ABDOMEN: Liver: Unremarkable. No mass. Gallbladder and bile ducts: Status post cholecystectomy. No ductal dilation. Pancreas: Unremarkable. No mass. No ductal dilation. Spleen: Unremarkable. No splenomegaly. Adrenals: Unremarkable. No mass. Kidneys and ureters: Unremarkable. No solid mass. No hydronephrosis. Stomach and bowel: Wall thickening of the left colon and sigmoid colon consistent with a colitis. Infectious or ischemic colitis would be most likely. No obstruction. PELVIS: Appendix: No findings to suggest acute appendicitis. Bladder: Unremarkable. No mass. Reproductive: Uterus has been removed. ABDOMEN and PELVIS: Intraperitoneal space: Unremarkable. No free air. No significant fluid collection. Bones/joints: No acute fracture. No dislocation. Soft tissues: Unremarkable. Vasculature: Unremarkable. No abdominal aortic aneurysm. Lymph nodes: Unremarkable. No enlarged lymph nodes. IMPRESSION: Wall thickening of the left colon and sigmoid colon consistent with a colitis. Infectious or ischemic colitis would be most likely.
[2022-11-07 04:41] VITALS: BP 175/83; PULSE 91; RESP 18
--- NOTE | 2022-11-07 05:04 | ED ---
General Adult HPI - General Chief complaint: GI Bleed Stated complaint: ABD PAIN Time Seen by Provider: 11/07/22 01:11 Source: patient, RN notes reviewed, old records reviewed Mode of arrival: ambulatory Limitations: no limitations - History of Present Illness Initial comments: Patient is an 87-year-old female past medical history remarkable for hyperte nsion, cancer, on aspirin at home who presents to the emergency Department complaining of fever vaginal bleeding or rectal bleeding for the last day. Had 2 episodes of it and she went to the bathroom. A small amount of red blood present in the toilet. No obvious blood when wiping. 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 Endorses some mild abdominal discomfort. Denies any nausea or vomiting. Denies any chest pain or shortness breath. Denies any lightheadedness, weakness, difficulty in breathing. Presents for further evaluation at this time. - Related Data Home Medications Medication Instructions Recorded Confirmed Atorvastatin Calcium [Lipitor] 20 mg PO HS 02/13/20 07/22/21 Phenytoin [Dilantin Chew] 50 mg PO HS 02/13/20 07/22/21 Phenytoin Sodium Extended 100 mg PO QAM 04/26/21 07/22/21 [Dilantin] lisinopriL [Zestril] 10 mg PO BID 04/26/21 07/22/21 Previous Rx's Medication Instructions Recorded amLODIPine [Norvasc] 10 mg PO DAILY #90 tab 02/16/20 Metoprolol Succinate [Toprol XL] 75 mg PO DAILY #30 07/23/21 Allergies Allergy/AdvReac Type Severity Reaction Status Date / Time amoxicillin Allergy Unknown-per Verified 07/22/21 09:10 PCP clarithromycin [From Biaxin] Allergy Unknown-per Verified 07/22/21 09:10 PCP sinutab Allergy Unknown-per Uncoded 07/22/21 06:57 PCP Review of Systems ROS Statement: Those systems with pertinent positive or pertinent negative responses have been documented in the HPI. Review of Systems: CONST: Denies fever EYES: Denies blurry vision ENT: Denies nasal congestion C/V: Denies Chest pain RESP: Denies shortness of breath GI: Endorses mild abdominal discomfort : Denies dysuria SKIN: Denies rash. MSK: Denies joint pain. NEURO: Denies headache ROS Other: All systems not noted in ROS Statement are negative. Past Medical History Past Medical History: Atrial Fibrillation, Hypertension Additional Past Medical History / Comment(s): emphysema, cervical CA, LUNG CA History of Any Multi-Drug Resistant Organisms: None Reported Past Surgical History: Cholecystectomy, Hysterectomy, Pacemaker Additional Past Surgical History / Comment(s): partial rt lung removed for CA. B rain Aneurysm removed x3 1989 Past Anesthesia/Blood Transfusion Reactions: No Reported Reaction Type of Cardiac Device: Biventricular Pacemaker Device Placement Date:: Feb 2020 Past Psychological History: No Psychological Hx Reported Smoking Status: Former smoker Past Alcohol Use History: None Reported Past Drug Use History: None Reported - Past Family History Mother Family Medical History: Diabetes Mellitus Father Additional Family Medical History / Comment(s): Hiatal hernia General Exam - General Exam Comments Initial Comments: General: Appears in no acute distress. HEAD: Normal with no signs of head trauma. EYES: PERRLA, EOMI, conjunctiva normal, no discharge. Pupils are 3 mm equal bilaterally. ENT: Hearing grossly intact, normal oropharynx. RESPIRATORY: Clear breath sounds bilaterally. No wheezes, rales, or rhonchi. C/V: Regular rate and rhythm. S1 and S2 auscultated, no edema, peripheral pulses 2+ and intact throughout ABD: Soft, nondistended. Mildly tender to palpation in the suprapubic region. Rectal exam reveals no gross blood. Non-complicated and nonbleeding hemorrhoids present. Good tone. : Pelvic exam performed in the presence of a female staff member. No evidence of obvious bleeding. Bimanual exam did reveal some nonspecific bleeding on my glove. Cervix is unremarkable on exam. Bimanual exam negative. EXT: Normal range of motion, no obvious deformity SKIN: No rashes or lesions observed on exposed skin. NEURO: Alert and oriented x 4. Cranial nerves II-XII intact. No focal sensory or strength deficits. Limitations: no limitations Course Vital Signs 11/06/22 11/07/22 22:09 04:40 Temperature 98.1 F Pulse Rate 88 91 Respiratory 20 18 Rate Blood Pressure 163/72 175/83 O2 Sat by Pulse 94 L 94 L Oximetry Medical Decision Making - Medical Decision Making Was pt. sent in by a medical professional or institution (, PA, IMPLEMENTATION LEAD, urgent care, hospital, or detention...) When possible be specific @ -No Did you speak to anyone other than the patient for history (EMS, parent, family, police, friend...)? What history was obtained from this source @ -No Did you review nursing and triage notes (agree or disagree)? Why? @ -I reviewed and agree with nursing and triage notes Were old charts reviewed (outside hosp., previous admission, EMS record, old EKG, old radiological studies, urgent care reports/EKG's, detention records)? Report findings @ -No old charts were reviewed Differential Diagnosis (chest pain, altered mental status, abdominal pain women, abdominal pain men, vaginal bleeding, weakness, fever, dyspnea, syncope, headache, dizziness, GI bleed, back pain, seizure, CVA, palpatations, mental health, musculoskeletal)? @ -Differential Abdominal Pain Women: Appendicitis, Cholecystitis, diverticulosis, ischemic bowel, pancreatitis, hepatitis, UTI, gastroenteritis, AAA, incarcerated hernia, bowel obstruction, constipation, inflammatory bowel, hepatitis, peptic ulcer disease, splenic infarction, perforated viscus, vulvitis, ovarian torsion, PID, kidney stone, placenta abruption, this is not meant to be an all-inclusive list EKG interpreted by me (3pts min.). @ -None done X-rays interpreted by me (1pt min.). @ -None done CT interpreted by me (1pt min.). @ -CT abdomen and pelvis reveals colitis. U/S interpreted by me (1pt. min.). @ -MANAGER MANAGEMENT ultrasound reveals no obvious findings or mass. Interpreted per radiology. What testing was considered but not performed or refused? (CT, X-rays, U/S, labs)? Why? @ -None What meds were considered but not given or refused? Why? @ -None Did you discuss the management of the patient with other professionals (professionals i.e. , PA, IMPLEMENTATION LEAD, lab, RT, psych nurse, medical social worker, actuary clerk, teacher, trust officer, social work case manager)? Give summary @ -No Was smoking cessation discussed for >3mins.? @ -No Was critical care preformed (if so, how long)? @ -No Were there social determinants of health that impacted care today? How? (Homelessness, low income, unemployed, alcoholism, drug addiction, transportation, low edu. Level, literacy, decrease access to med. care, snf, rehab)? @ -No Was there de-escalation of care discussed even if they declined (Discuss DNR or withdrawal of care, Hospice)? DNR status @ -No What co-morbidities impacted this encounter? (DM, HTN, Smoking, COPD, CAD, Cancer, CVA, ARF, Chemo, Hep., AIDS, mental health diagnosis, sleep apnea, morbid obesity)? @ -None Was patient admitted / discharged? Hospital course, mention meds given and route, prescriptions, significant lab abnormalities, going to OR and other pertinent info. @ -Based on the patient's presentation and physical exam, presents with 1 day of rectal bleeding. Head 2 or 3 episodes at home. Mild episodes. Mild abdominal discomfort as well. Presents for further evaluation. Unknown if it is vaginal or rectal bleeding. Exams of both were unremarkable, with possible mild bleeding vaginally. I did recommend we obtain pelvic ultrasound as well as CT abdomen and pelvis. Labs were obtained on the patient was in triage and were within acceptable limits. Coags are within acceptable limits. Troponin undetectable. Occult blood is positive. Urinalysis is still pending. Patient's imaging was obtained and showed colitis and was otherwise unremarkable. At this time, patient is feeling improved. I did discuss strict return precautions. She was in agreement this plan. She'll be discharged, this time with strict return precautions to return to the ER with any worsening bleeding or pain. I instructed the patient to follow up with their PCP in the next 1-3 days. I explained that the patient should return to the emergency department if they experience any worsening symptoms. Strict return precautions were discussed with the patient. The patient expressed understanding of these instructions. I answered all questions that the patient had. The patient was discharged home in good condition with their prescriptions and follow up information. Undiagnosed new problem with uncertain prognosis? @ -No Drug Therapy requiring intensive monitoring for toxicity (Heparin, Nitro, Insulin, Cardizem)? @ -No Were any procedures done? @ -No Diagnosis/symptom? @ -Rectal bleeding of unknown etiology, colitis Acute, or Chronic, or Acute on Chronic? @ -Acute Uncomplicated (without systemic symptoms) or Complicated (systemic symptoms)? @ -Uncomplicated Side effects of treatment? @ -No Exacerbation, Progression, or Severe Exacerbation? @ -No Poses a threat to life or bodily function? How? (Chest pain, [place], [place], pneumonia, PE, COPD, DKA, ARF, appy, cholecystitis, CVA, Diverticulitis, Homicidal, Suicidal, threat to staff... and all critical care pts) @ -No - Lab Data Result diagrams: 11/06/22 23:26 11/06/22 23:26 Lab Results 11/06/22 11/06/22 11/06/22 Range/Units 23:26 23:26 23:26 WBC 6.2 (3.8-10.6) k/uL RBC 4.00 (3.80-5.40) m/uL Hgb 12.6 (11.4-16.0) gm/dL Hct 37.7 (34.0-46.0) % MCV 94.3 (80.0-100.0) fL MCH 31.6 (25.0-35.0) pg MCHC 33.5 (31.0-37.0) g/dL RDW 13.9 (11.5-15.5) % Plt Count 144 L (150-450) k/uL MPV 9.3 Neutrophils % 67 % Lymphocytes % 22 % Monocytes % 8 % Eosinophils % 0 % Basophils % 0 % Neutrophils # 4.2 (1.3-7.7) k/uL Lymphocytes # 1.3 (1.0-4.8) k/uL Monocytes # 0.5 (0-1.0) k/uL Eosinophils # 0.0 (0-0.7) k/uL Basophils # 0.0 (0-0.2) k/uL PT (9.0-12.0) sec INR (<1.2) APTT 24.0 (22.0-30.0) sec Sodium 140 (137-145) mmol/L Potassium 4.3 (3.5-5.1) mmol/L Chloride 107 (98-107) mmol/L Carbon Dioxide 24 (22-30) mmol/L Anion Gap 9 mmol/L BUN 27 H (7-17) mg/dL Creatinine 1.04 (0.52-1.04) mg/dL Est GFR (CKD-EPI)AfAm 55 (>60 ml/min/1.73 sqM) Est GFR (CKD-EPI)NonAf 48 (>60 ml/min/1.73 sqM) Glucose 132 H (74-99) mg/dL Calcium 8.7 (8.4-10.2) mg/dL Total Bilirubin 0.3 (0.2-1.3) mg/dL AST 22 (14-36) U/L ALT 19 (4-34) U/L Alkaline Phosphatase 134 H (38-126) U/L Troponin I (0.000-0.034) ng/mL Total Protein 6.6 (6.3-8.2) g/dL Albumin 3.8 (3.5-5.0) g/dL Urine Color Urine Appearance (Clear) Urine pH (5.0-8.0) Ur Specific [place] (1.001-1.035) Urine Protein (Negative) Urine Glucose (UA) (Negative) Urine Ketones (Negative) Urine Blood (Negative) Urine Nitrite (Negative) Urine Bilirubin (Negative) Urine Urobilinogen (<2.0) mg/dL Ur Leukocyte Esterase (Negative) Urine RBC (0-5) /hpf Urine WBC (0-5) /hpf Ur Squamous Epith Cells (0-4) /hpf Amorphous Sediment (None) /hpf Urine Bacteria (None) /hpf Urine Mucus (None) /hpf Stool Occult Blood (Negative) Blood Type Blood Type Recheck Bld Type Recheck Status Antibody Screen Spec Expiration Date 11/06/22 11/06/22 11/07/22 Range/Units 23:26 23:26 00:00 WBC (3.8-10.6) k/uL RBC (3.80-5.40) m/uL Hgb (11.4-16.0) gm/dL Hct (34.0-46.0) % MCV (80.0-100.0) fL MCH (25.0-35.0) pg MCHC (31.0-37.0) g/dL RDW (11.5-15.5) % Plt Count (150-450) k/uL MPV Neutrophils % % Lymphocytes % % Monocytes % % Eosinophils % % Basophils % % Neutrophils # (1.3-7.7) k/uL Lymphocytes # (1.0-4.8) k/uL Monocytes # (0-1.0) k/uL Eosinophils # (0-0.7) k/uL Basophils # (0-0.2) k/uL PT 12.8 H (9.0-12.0) sec INR 1.3 H (<1.2) APTT (22.0-30.0) sec Sodium (137-145) mmol/L Potassium (3.5-5.1) mmol/L Chloride (98-107) mmol/L Carbon Dioxide (22-30) mmol/L Anion Gap mmol/L BUN (7-17) mg/dL Creatinine (0.52-1.04) mg/dL Est GFR (CKD-EPI)AfAm (>60 ml/min/1.73 sqM) Est GFR (CKD-EPI)NonAf (>60 ml/min/1.73 sqM) Glucose (74-99) mg/dL Calcium (8.4-10.2) mg/dL Total Bilirubin (0.2-1.3) mg/dL AST (14-36) U/L ALT (4-34) U/L Alkaline Phosphatase (38-126) U/L Troponin I <0.012 (0.000-0.034) ng/mL Total Protein (6.3-8.2) g/dL Albumin (3.5-5.0) g/dL Urine Color Urine Appearance (Clear) Urine pH (5.0-8.0) Ur Specific [place] (1.001-1.035) Urine Protein (Negative) Urine Glucose (UA) (Negative) Urine Ketones (Negative) Urine Blood (Negative) Urine Nitrite (Negative) Urine Bilirubin (Negative) Urine Urobilinogen (<2.0) mg/dL Ur Leukocyte Esterase (Negative) Urine RBC (0-5) /hpf Urine WBC (0-5) /hpf Ur Squamous Epith Cells (0-4) /hpf Amorphous Sediment (None) /hpf Urine Bacteria (None) /hpf Urine Mucus (None) /hpf Stool Occult Blood (Negative) Blood Type A Positive Blood Type Recheck No Previous Record Bld Type Recheck Status CABO Indicated Antibody Screen NEGATIVE Spec Expiration Date 11/09/2022 - 232511/07/22 11/07/22 Range/Units 01:33 01:33 WBC (3.8-10.6) k/uL RBC (3.80-5.40) m/uL Hgb (11.4-16.0) gm/dL Hct (34.0-46.0) % MCV (80.0-100.0) fL MCH (25.0-35.0) pg MCHC (31.0-37.0) g/dL RDW (11.5-15.5) % Plt Count (150-450) k/uL MPV Neutrophils % % Lymphocytes % % Monocytes % % Eosinophils % % Basophils % % Neutrophils # (1.3-7.7) k/uL Lymphocytes # (1.0-4.8) k/uL Monocytes # (0-1.0) k/uL Eosinophils # (0-0.7) k/uL Basophils # (0-0.2) k/uL PT (9.0-12.0) sec INR (<1.2) APTT (22.0-30.0) sec Sodium (137-145) mmol/L Potassium (3.5-5.1) mmol/L Chloride (98-107) mmol/L Carbon Dioxide (22-30) mmol/L Anion Gap mmol/L BUN (7-17) mg/dL Creatinine (0.52-1.04) mg/dL Est GFR (CKD-EPI)AfAm (>60 ml/min/1.73 sqM) Est GFR (CKD-EPI)NonAf (>60 ml/min/1.73 sqM) Glucose (74-99) mg/dL Calcium (8.4-10.2) mg/dL Total Bilirubin (0.2-1.3) mg/dL AST (14-36) U/L ALT (4-34) U/L Alkaline Phosphatase (38-126) U/L Troponin I (0.000-0.034) ng/mL Total Protein (6.3-8.2) g/dL Albumin (3.5-5.0) g/dL Urine Color Light Yellow Urine Appearance Clear (Clear) Urine pH 5.0 (5.0-8.0) Ur Specific [place] 1.015 (1.001-1.035) Urine Protein Negative (Negative) Urine Glucose (UA) Negative (Negative) Urine Ketones Negative (Negative) Urine Blood Negative (Negative) Urine Nitrite Positive H (Negative) Urine Bilirubin Negative (Negative) Urine Urobilinogen <2.0 (<2.0) mg/dL Ur Leukocyte Esterase Trace H (Negative) Urine RBC 1 (0-5) /hpf Urine WBC 10 H (0-5) /hpf Ur Squamous Epith Cells <1 (0-4) /hpf Amorphous Sediment Rare H (None) /hpf Urine Bacteria Occasional H (None) /hpf Urine Mucus Rare H (None) /hpf Stool Occult Blood Positive H (Negative) Blood Type Blood Type Recheck Bld Type Recheck Status Antibody Screen Spec Expiration Date Disposition Clinical Impression: Colitis, Rectal bleed Disposition: HOME SELF-CARE Condition: Fair Instructions (If sedation given, give patient instructions): Gastrointestinal Bleeding (ED) Additional Instructions: Return if worsening bleeding, or symptoms or anemia including weakness/lightheadedness/difficulty walking. Return if worsening pain. Follow up with PCP in 1-2 days. Is patient prescribed a controlled substance at d/c from ED?: No Referrals: Claudy Grove MD [Primary Care Provider] - 1-2 days Time of Disposition: 05:00
[2022-11-07 05:16] LABS: Amorphous Sediment,Urine Rare /hpf; Appearance,Urine Clear (Clear); Bacteria,Urine Occasional /hpf; Bilirubin,Urine Negative (Negative); Blood,Urine Negative (Negative); Color,Urine Light Yellow; Glucose,Urine (UA) Negative (Negative); Ketones,Urine Negative (Negative); Leukocyte Esterase,Urine Trace (Negative); Mucus,Urine Rare /hpf; Nitrite,Urine Positive (Negative); Protein,Urine Negative (Negative); RBC,Urine 1 /hpf (0-5); Specific Gravity,Urine 1.015 (1.001-1.035); Squamous Epithelial Cell,Urine <1 /hpf (0-4); Urobilinogen,Urine <2.0 mg/dL (<2.0); WBC,Urine 10 /hpf (0-5)
--- NOTE | 2022-11-07 07:55 | ED ---
Medical Decision Making - Medical Decision Making Patient's urinalysis returned after the patient was discharged. Showed evidence of UTI. Patient did not answer her phone after multiple attempts however patient's daughter, Yuki Hunter did answer her phone and she was aware that the patient was in the emergency department the evening before and I did explain to her that I did send a prescription, antibiotic for the patient to start due to concern for UTI, and she will inform her mother of this prescription and findings. - Lab Data Result diagrams: 11/06/22 23:26 11/06/22 23:26 Lab Results 11/06/22 11/06/22 11/06/22 Range/Units 23:26 23:26 23: WBC 6.2 (3.8-10.6) k/uL RBC 4.00 (3.80-5.40) m/uL Hgb 12.6 (11.4-16.0) gm/dL Hct 37.7 (34.0-46.0) % MCV 94.3 (80.0-100.0) fL MCH 31.6 (25.0-35.0) pg MCHC 33.5 (31.0-37.0) g/dL RDW 13.9 (11.5-15.5) % Plt Count 144 L (150-450) k/uL MPV 9.3 Neutrophils % 67 % Lymphocytes % 22 % Monocytes % 8 % Eosinophils % 0 % Basophils % 0 % Neutrophils # 4.2 (1.3-7.7) k/uL Lymphocytes # 1.3 (1.0-4.8) k/uL Monocytes # 0.5 (0-1.0) k/uL Eosinophils # 0.0 (0-0.7) k/uL Basophils # 0.0 (0-0.2) k/uL PT (9.0-12.0) sec INR (<1.2) APTT 24.0 (22.0-30.0) sec Sodium 140 (137-145) mmol/L Potassium 4.3 (3.5-5.1) mmol/L Chloride 107 (98-107) mmol/L Carbon Dioxide 24 (22-30) mmol/L Anion Gap 9 mmol/L BUN 27 H (7-17) mg/dL Creatinine 1.04 (0.52-1.04) mg/dL Est GFR (CKD-EPI)AfAm 55 (>60 ml/min/1.73 sqM) Est GFR (CKD-EPI)NonAf 48 (>60 ml/min/1.73 sqM) Glucose 132 H (74-99) mg/dL Calcium 8.7 (8.4-10.2) mg/dL Total Bilirubin 0.3 (0.2-1.3) mg/dL AST 22 (14-36) U/L ALT 19 (4-34) U/L Alkaline Phosphatase 134 H (38-126) U/L Troponin I (0.000-0.034) ng/mL Total Protein 6.6 (6.3-8.2) g/dL Albumin 3.8 (3.5-5.0) g/dL Urine Color Urine Appearance (Clear) Urine pH (5.0-8.0) Ur Specific [place] (1.001-1.035) Urine Protein (Negative) Urine Glucose (UA) (Negative) Urine Ketones (Negative) Urine Blood (Negative) Urine Nitrite (Negative) Urine Bilirubin (Negative) Urine Urobilinogen (<2.0) mg/dL Ur Leukocyte Esterase (Negative) Urine RBC (0-5) /hpf Urine WBC (0-5) /hpf Ur Squamous Epith Cells (0-4) /hpf Amorphous Sediment (None) /hpf Urine Bacteria (None) /hpf Urine Mucus (None) /hpf Stool Occult Blood (Negative) Blood Type Blood Type Recheck Bld Type Recheck Status Antibody Screen Spec Expiration Date 11/06/22 11/06/22 11/07/22 Range/Units 23:26 23:26 00:00 WBC (3.8-10.6) k/uL RBC (3.80-5.40) m/uL Hgb (11.4-16.0) gm/dL Hct (34.0-46.0) % MCV (80.0-100.0) fL MCH (25.0-35.0) pg MCHC (31.0-37.0) g/dL RDW (11.5-15.5) % Plt Count (150-450) k/uL MPV Neutrophils % % Lymphocytes % % Monocytes % % Eosinophils % % Basophils % % Neutrophils # (1.3-7.7) k/uL Lymphocytes # (1.0-4.8) k/uL Monocytes # (0-1.0) k/uL Eosinophils # (0-0.7) k/uL Basophils # (0-0.2) k/uL PT 12.8 H (9.0-12.0) sec INR 1.3 H (<1.2) APTT (22.0-30.0) sec Sodium (137-145) mmol/L Potassium (3.5-5.1) mmol/L Chloride (98-107) mmol/L Carbon Dioxide (22-30) mmol/L Anion Gap mmol/L BUN (7-17) mg/dL Creatinine (0.52-1.04) mg/dL Est GFR (CKD-EPI)AfAm (>60 ml/min/1.73 sqM) Est GFR (CKD-EPI)NonAf (>60 ml/min/1.73 sqM) Glucose (74-99) mg/dL Calcium (8.4-10.2) mg/dL Total Bilirubin (0.2-1.3) mg/dL AST (14-36) U/L ALT (4-34) U/L Alkaline Phosphatase (38-126) U/L Troponin I <0.012 (0.000-0.034) ng/mL Total Protein (6.3-8.2) g/dL Albumin (3.5-5.0) g/dL Urine Color Urine Appearance (Clear) Urine pH (5.0-8.0) Ur Specific [place] (1.001-1.035) Urine Protein (Negative) Urine Glucose (UA) (Negative) Urine Ketones (Negative) Urine Blood (Negative) Urine Nitrite (Negative) Urine Bilirubin (Negative) Urine Urobilinogen (<2.0) mg/dL Ur Leukocyte Esterase (Negative) Urine RBC (0-5) /hpf Urine WBC (0-5) /hpf Ur Squamous Epith Cells (0-4) /hpf Amorphous Sediment (None) /hpf Urine Bacteria (None) /hpf Urine Mucus (None) /hpf Stool Occult Blood (Negative) Blood Type A Positive Blood Type Recheck No Previous Record Bld Type Recheck Status CABO Indicated Antibody Screen NEGATIVE Spec Expiration Date 11/09/2022232511/07/22 11/07/22 Range/Units 01:33 01:33 WBC (3.8-10.6) k/uL RBC (3.80-5.40) m/uL Hgb (11.4-16.0) gm/dL Hct (34.0-46.0) % MCV (80.0-100.0) fL MCH (25.0-35.0) pg MCHC (31.0-37.0) g/dL RDW (11.5-15.5) % Plt Count (150-450) k/uL MPV Neutrophils % % Lymphocytes % % Monocytes % % Eosinophils % % Basophils % % Neutrophils # (1.3-7.7) k/uL Lymphocytes # (1.0-4.8) k/uL Monocytes # (0-1.0) k/uL Eosinophils # (0-0.7) k/uL Basophils # (0-0.2) k/uL PT (9.0-12.0) sec INR (<1.2) APTT (22.0-30.0) sec Sodium (137-145) mmol/L Potassium (3.5-5.1) mmol/L Chloride (98-107) mmol/L Carbon Dioxide (22-30) mmol/L Anion Gap mmol/L BUN (7-17) mg/dL Creatinine (0.52-1.04) mg/dL Est GFR (CKD-EPI)AfAm (>60 ml/min/1.73 sqM) Est GFR (CKD-EPI)NonAf (>60 ml/min/1.73 sqM) Glucose (74-99) mg/dL Calcium (8.4-10.2) mg/dL Total Bilirubin (0.2-1.3) mg/dL AST (14-36) U/L ALT (4-34) U/L Alkaline Phosphatase (38-126) U/L Troponin I (0.000-0.034) ng/mL Total Protein (6.3-8.2) g/dL Albumin (3.5-5.0) g/dL Urine Color Light Yellow Urine Appearance Clear (Clear) Urine pH 5.0 (5.0-8.0) Ur Specific [place] 1.015 (1.001-1.035) Urine Protein Negative (Negative) Urine Glucose (UA) Negative (Negative) Urine Ketones Negative (Negative) Urine Blood Negative (Negative) Urine Nitrite Positive H (Negative) Urine Bilirubin Negative (Negative) Urine Urobilinogen <2.0 (<2.0) mg/dL Ur Leukocyte Esterase Trace H (Negative) Urine RBC 1 (0-5) /hpf Urine WBC 10 H (0-5) /hpf Ur Squamous Epith Cells <1 (0-4) /hpf Amorphous Sediment Rare H (None) /hpf Urine Bacteria Occasional H (None) /hpf Urine Mucus Rare H (None) /hpf Stool Occult Blood Positive H (Negative) Blood Type Blood Type Recheck Bld Type Recheck Status Antibody Screen Spec Expiration Date Disposition Clinical Impression: Colitis, Rectal bleed, UTI (urinary tract infection) Disposition: HOME SELF-CARE Condition: Fair Instructions (If sedation given, give patient instructions): Gastrointestinal Bleeding (ED) Additional Instructions: Return if worsening bleeding, or symptoms or anemia including weakness/lightheadedness/difficulty walking. Return if worsening pain. Follow up with PCP in 1-2 days. Prescriptions: Sulfamethox-Tmp 800-160Mg [Bactrim DS 800-160 mg] 1 tab PO Q12HR 7 Days #14 tab Is patient prescribed a controlled substance at d/c from ED?: No Referrals: Claudy Grove MD [Primary Care Provider] - 1-2 days
== END 2022-11-07 05:13 | disposition home or self-care (01) ==
LOC: EC 21:59
DX: K52.9 Noninfective gastroenteritis and colitis, unspecified (principal); K62.5 Hemorrhage of anus and rectum; I48.91 Unspecified atrial fibrillation; I10 Essential (primary) hypertension; Z90.49 Acquired absence of other specified parts of digestive tract; Z87.891 Personal history of nicotine dependence; Z88.0 Allergy status to penicillin; Z88.1 Allergy status to other antibiotic agents; Z88.8 Allergy status to other drugs, medicaments and biological substances; Z79.899 Other long term (current) drug therapy
CPT/HCPCS: 36415; 74177; 76830; 76856; 80053; 81001; 82272; 84484; 85025; 85610; 85730; 86850; 86900; 86901; 96360; 99284

== ENCOUNTER 2023-01-10 16:42 | Emergency (ER) | payer MEDICARE ==
[2023-01-10 17:40] VITALS: RESP 18
[2023-01-10 18:03] LABS: Appearance,Urine Clear (Clear); Bilirubin,Urine Negative (Negative); Blood,Urine Negative (Negative); Color,Urine Colorless; Glucose,Urine (UA) Negative (Negative); Ketones,Urine Negative (Negative); Leukocyte Esterase,Urine Negative (Negative); Nitrite,Urine Negative (Negative); Protein,Urine Negative (Negative); Specific Gravity,Urine 1.004 (1.001-1.035); Urobilinogen,Urine <2.0 mg/dL (<2.0)
--- NOTE | 2023-01-10 19:17 | ED ---
Recheck HPI - General Chief Complaint: Recheck/Abnormal Lab/Rx Stated Complaint: uti Time Seen by Provider: 01/10/23 18:52 Source: patient, family, RN notes reviewed, old records reviewed Mode of arrival: wheelchair Limitations: no limitations - History of Present Illness Initial Comments: This is an 87-year-old female to the emergency department for evaluation. This patient presents today for evaluation regards to possibility of urinary tract infection. Patient just completed treatment for urinary tract infection antibiotics orally. Patient feels improved but did at home urinalysis and was concerned that she still had urinary tract infection as it was faintly positive. Patient does do home urinary tract infection testing Complaint: abnormal lab (Possible urinary tract infection) -: days(s) Returns Today for: needs IV antibiotics (Concern for recurrent urinary tract infection) Symptoms Since Prior Visit: no new symptoms Context: planned re-check, called for abnormal lab result (At home urinalysis abnormal) Associated Symptoms: none Treatments Prior to Arrival: Given Antibiotics on - Related Data Home Medications Medication Instructions Recorded Confirmed Atorvastatin Calcium [Lipitor] 20 mg PO HS 02/13/20 07/22/21 Phenytoin [Dilantin Chew] 50 mg PO HS 02/13/20 07/22/21 Phenytoin Sodium Extended 100 mg PO QAM 04/26/21 07/22/21 [Dilantin] lisinopriL [Zestril] 10 mg PO BID 04/26/21 07/22/21 Previous Rx's Medication Instructions Recorded amLODIPine [Norvasc] 10 mg PO DAILY #90 tab 02/16/20 Metoprolol Succinate [Toprol XL] 75 mg PO DAILY #30 07/23/21 Nitrofurantoin Monohyd/M-Cryst 100 mg PO Q12HR 7 Days #14 cap 11/08/22 [Macrobid] Allergies Allergy/AdvReac Type Severity Reaction Status Date / Time amoxicillin Allergy Unknown-per Verified 01/10/23 17:40 PCP clarithromycin [From Biaxin] Allergy Unknown-per Verified 01/10/23 17:40 PCP sinutab Allergy Unknown-per Uncoded 01/10/23 17:40 PCP Review of Systems ROS Statement: Those systems with pertinent positive or pertinent negative responses have been documented in the HPI. ROS Other: All systems not noted in ROS Statement are negative. Past Medical History Past Medical History: Atrial Fibrillation, Hypertension Additional Past Medical History / Comment(s): emphysema, cervical CA, LUNG CA, UTI History of Any Multi-Drug Resistant Organisms: None Reported Past Surgical History: Cholecystectomy, Hysterectomy, Pacemaker Additional Past Surgical History / Comment(s): partial rt lung removed for CA. Brain Aneurysm removed x3 1989 Past Anesthesia/Blood Transfusion Reactions: No Reported Reaction Type of Cardiac Device: Biventricular Pacemaker Device Placement Date:: Feb 2020 Past Psychological History: No Psychological Hx Reported Smoking Status: Former smoker Past Alcohol Use History: None Reported Past Drug Use History: None Reported - Past Family History Mother Family Medical History: Diabetes Mellitus Father Additional Family Medical History / Comment(s): Hiatal hernia General Exam Limitations: no limitations General appearance: alert, in no apparent distress Head exam: Present: atraumatic, normocephalic, normal inspection Eye exam: Present: normal appearance, PERRL, EOMI. Absent: scleral icterus, conjunctival injection, periorbital swelling ENT exam: Present: normal exam, mucous membranes moist Neck exam: Present: normal inspection. Absent: tenderness, meningismus, lymphadenopathy Respiratory exam: Present: normal lung sounds bilaterally. Absent: respiratory distress, wheezes, rales, rhonchi, stridor Cardiovascular Exam: Present: regular rate, normal rhythm, normal heart sounds. Absent: systolic murmur, diastolic murmur, rubs, gallop, clicks GI/Abdominal exam: Present: soft, normal bowel sounds. Absent: distended, tenderness, guarding, rebound, rigid Extremities exam: Present: normal inspection, full ROM, normal capillary refill. Absent: tenderness, pedal edema, joint swelling, calf tenderness Back exam: Present: normal inspection Neurological exam: Present: alert, oriented X3, CN II-XII intact Psychiatric exam: Present: normal affect, normal mood Skin exam: Present: warm, dry, intact, normal color. Absent: rash Course Vital Signs 01/10/23 01/10/23 17:36 19:37 Temperature 98.2 F 98.1 F Pulse Rate 75 70 Respiratory 18 18 Rate Blood Pressure 113/66 123/65 O2 Sat by Pulse 94 L 96 Oximetry - Reevaluation(s) Reevaluation #1: 01/10/23 22:54 Medical record is reviewed Reevaluation #2: 01/10/23 22:54 Patient informed of results and questions answered Reevaluation #3: 01/10/23 22:54 Patient remains asymptomatic Reevaluation #4: 01/10/23 22:54 Was pt. sent in by a medical professional or institution ([facility]NA Reynolds, [employer], urgent care, hospital, or skilled nursing...) When possible be specific @ -no Did you speak to anyone other than the patient for history (EMS, parent, family, police, friend...)? What history was obtained from this source @ -no Did you review nursing and triage notes (agree or disagree)? Why? @ -agree Are old charts reviewed (outside hosp., previous admission, EMS record, old EKG, old radiological studies, urgent care reports/EKG's, skilled nursing records)? Report findings @ -yes Differential Diagnosis (chest pain, altered mental status, abdominal pain women, abdominal pain men, vaginal bleeding, weakness, fever, dyspnea, syncope, headache, dizziness, GI bleed, back pain, seizure, CVA, palpatations, mental health, musculoskeletal)? @ -prior EKG interpreted by me (3pts min.). @ -no X-rays interpreted by me (1pt min.). @ -no CT interpreted by me (1pt min.). @ -no U/S interpreted by me (1pt. min.). @ -no What testing was considered but not performed or refused? (CT, X-rays, U/S, labs)? Why? @ -none What meds were considered but not given or refused? Why? @ -none Did you discuss the management of the patient with other professionals (pro fessionals i.e. KEYANNA Reynolds, [employer], lab, RT, psych nurse, social sciences department chair, blue prints trimmer, teacher, parachute/combatant diver officer, case specialist)? Give summary @ -no Was smoking cessation discussed for >3mins.? @ -no Was critical care preformed (if so, how long)? @ -no Were there social determinants of health that impacted care today? How? (Homelessness, low income, unemployed, alcoholism, drug addiction, transportation, low edu. Level, literacy, decrease access to med. care, skilled nursing, rehab)? @ -none Was there de-escalation of care discussed even if they declined (Discuss DNR or withdrawal of care, Hospice)? DNR status @ -no What co-morbidities impacted this encounter? (DM, HTN, Smoking, COPD, CAD, Cancer, CVA, ARF, Chemo, Hep., AIDS, mental health diagnosis, sleep apnea, morbid obesity)? @ -none Was patient admitted / discharged? Hospital course, mention meds given and route, prescriptions, significant lab abnormalities, going to OR and other pertinent info. @ - 87 female to the emergency department today for evaluation today. Patient is presenting for evaluation of concern for for persistent urinary tract infection despite the fact the patient has finished antibiotic treatment. Patient is informed of negative urinalysis here In the ER patient can be discharged home Discharge Undiagnosed new problem with uncertain prognosis? @ -no Drug Therapy requiring intensive monitoring for toxicity (Heparin, Nitro, Insulin, Cardizem)? @ -no Were any procedures done? @ -no Diagnosis/symptom? @ -Normal exam Acute, or Chronic, or Acute on Chronic? @ -Acute Uncomplicated (without systemic symptoms) or Complicated (systemic symptoms)? @ -Complicated Side effects of treatment? @ -no Exacerbation, Progression, or Severe Exacerbation? @ -exacerbation Poses a threat to life or bodily function? How? (Chest pain, [place], NV, pneumonia, PE, COPD, DKA, ARF, appy, cholecystitis, CVA, Diverticulitis, Homicidal, Suicidal, threat to staff... and all critical care pts) @ -no Medical Decision Making - Medical Decision Making 87 female to the emergency department today for evaluation today. Patient is presenting for evaluation of concern for for persistent urinary tract infection despite the fact the patient has finished antibiotic treatment. Patient is informed of negative urinalysis here In the ER patient can be discharged home - Lab Data Lab Results 01/10/23 Range/Units 17:51 Urine Color Colorless Urine Appearance Clear (Clear) Urine pH 5.0 (5.0-8.0) Ur Specific [place] 1.004 (1.001-1.035) Urine Protein Negative (Negative) Urine Glucose (UA) Negative (Negative) Urine Ketones Negative (Negative) Urine Blood Negative (Negative) Urine Nitrite Negative (Negative) Urine Bilirubin Negative (Negative) Urine Urobilinogen <2.0 (<2.0) mg/dL Ur Leukocyte Esterase Negative (Negative) Disposition Clinical Impression: Normal exam Disposition: HOME SELF-CARE Condition: Good Instructions (If sedation given, give patient instructions): Normal Exam (ED) Is patient prescribed a controlled substance at d/c from ED?: No Referrals: Claudy Grove MD [Primary Care Provider] - 1-2 days Time of Disposition: 19:15
[2023-01-10 19:41] VITALS: BP 123/65; PULSE 70; TEMP 98.1
== END 2023-01-10 19:42 | disposition home or self-care (01) ==
LOC: EC 16:42
DX: Z00.00 Encounter for general adult medical examination without abnormal findings (principal); I10 Essential (primary) hypertension; I48.91 Unspecified atrial fibrillation; Z87.891 Personal history of nicotine dependence; Z88.0 Allergy status to penicillin; Z88.8 Allergy status to other drugs, medicaments and biological substances; Z79.899 Other long term (current) drug therapy
CPT/HCPCS: 81003; 99283

== ENCOUNTER → 2023-01-19 | Day surgery (SDC) | payer MEDICARE ==
[~2023-01-19] MED LIST: LACTATED RINGERS 1,000 ML IV SCH; LIDOCAINE 1% (10MG/ML) FOR IV START INTRADERMA PRN; ONDANSETRON 4 MG/2 ML VIAL ONE; PROPOFOL 10 MG/ML 20 ML VIAL IV ONE
--- NOTE | 2023-01-19 15:50 | P.PCN ---
Date of Procedure: 01/19/23 Procedure(s) Performed: BRIEF HISTORY: Patient is a 87-year-old pleasant white female scheduled for an elective colonoscopy as a part of evaluation of intermittent rectal bleeding. PROCEDURE PERFORMED: Colonoscopy. PREOPERATIVE DIAGNOSIS: Intermittent rectal bleeding. IV sedation per Anesthesia. PROCEDURE: After informed consent was obtained, the patient, was brought into the endoscopy unit. IV sedation was administered by Anesthesia under continuous monitoring. Digital rectal examination was normal. Initially the Olympus CF-160 flexible video colonoscope was then inserted in the rectum, gradually advanced into the cecum without any difficulty. Careful examination was performed as the scope was gradually being withdrawn. Ileocecal valve and the appendiceal orifice were visualized and appeared normal. Prep was excellent. Mucosa of the cecum, ascending colon, transverse colon, descending colon, sigmoid colon, and rectum appeared normal. Scattered sigmoid diverticulosis. Retroflexion was performed in the rectum and small internal hemorrhoids were seen. The patient tolerated the procedure well. IMPRESSION: Normal-appearing colon from rectum to cecum with no evidence of colorectal neoplasia Scattered sigmoid diverticulosis Small internal hemorrhoids . RECOMMENDATIONS: Findings of this examination were discussed with the patient as well as a family. She was advised to continue with a high-fiber diet and take fiber supplements a regular basis and avoid straining and constipation..
[2023-01-19 15:57] VITALS: BP 133/66; PULSE 85; RESP 12
== END ==
LOC: ORWHC2ENDO 13:08
PROVIDERS: ATTEND Internal Medicine Gastroenterology
DX: K57.30 Diverticulosis of large intestine without perforation or abscess without bleeding (principal); K64.8 Other hemorrhoids; I48.91 Unspecified atrial fibrillation; I10 Essential (primary) hypertension; Z86.73 Personal history of transient ischemic attack (TIA), and cerebral infarction without residual deficits; Z79.82 Long term (current) use of aspirin; Z79.899 Other long term (current) drug therapy; Z88.0 Allergy status to penicillin; Z88.8 Allergy status to other drugs, medicaments and biological substances; Z98.890 Other specified postprocedural states; Z88.1 Allergy status to other antibiotic agents; Z85.118 Personal history of other malignant neoplasm of bronchus and lung
CPT/HCPCS: 45378; J2405; J2704

== ENCOUNTER → 2023-01-22 | Outpatient (CLI) | payer MEDICARE ==
--- NOTE | 2023-01-22 11:59 | CT ---
EXAMINATION TYPE: CT brain wo con DATE OF EXAM: 01/22/2023 COMPARISON: None HISTORY: 87-year-old female G40.209, Z86.79, Left frontal lobe headache and vision changes. TECHNIQUE: Examination was done in axial plane without intravenous contrast. Coronal and sagittal r econstructions performed. CT DLP: 1115 mGycm Automated exposure control for dose reduction was used. FINDINGS: Bilateral craniotomy flaps and bifrontal eugene holes are demonstrated. Aneurysm clips in the bilateral parasellar regions. The metal creates prominent artifacts. Mild volume loss along the bilateral cerebral convexities. Allowing for the artifacts, no evidence for acute intracranial hemorrhage, acute ischemic change, mas s, mass effect, midline shift, or extra-axial fluid collection. No hydrocephalus. No effacement of ce rebral sulci or basal subarachnoid cisterns. Salcedo-white matter differentiation is maintained. Rightward nasal septal deviation. Paranasal sinuses and mastoid air cells are well pneumatized. IMPRESSION: Aneurysm clips along the bilateral parasellar regions. There are bilateral craniotomy flaps. There is mild generalized cerebral volume loss. Allowing for the metal artifact, no acute intracranial abnorm ality seen.
== END | disposition home or self-care (01) ==
LOC: RADCTMAIN 08:47
PROVIDERS: ATTEND Psychiatry & Neurology Neurology
DX: G40.209 Localization-related (focal) (partial) symptomatic epilepsy and epileptic syndromes with complex partial seizures, not intractable, without status epilepticus (principal); I67.1 Cerebral aneurysm, nonruptured; G31.89 Other specified degenerative diseases of nervous system; Z98.890 Other specified postprocedural states; Z86.79 Personal history of other diseases of the circulatory system
CPT/HCPCS: 70450

== ENCOUNTER 2023-02-07 14:42 | Emergency (ER) | payer MEDICARE ==
--- NOTE | 2023-02-07 15:03 | ED ---
General Adult HPI - General Source: patient, family, RN notes reviewed Mode of arrival: ambulatory Limitations: no limitations <Fracisco Collins - Last Filed: 02/07/23 15:02> <Alla Lou - Last Filed: 02/07/23 20:38> - General Stated complaint: R Foot Leaking Time Seen by Provider: 02/07/23 15:03 - History of Present Illness Initial comments: 87-year-old female presents emergency Department chief complaint right foot redness, swelling, draining. Patient that she occasionally has swelling but states that she had some blistering that has opened up. Patient denies any fevers chills no other complaints. (Fracisco Collins) Patient's an 87 year female with a history of hypertension and seizures presents emergency room with complaints of swelling to the right lower leg and weeping in a few areas. She noticed this when her slipper was wet earlier today. She denies a chest pain, palpitations, shortness breath, hemoptysis or fevers. Denies any history of cellulitis. Is unsure she's had a DVT or PE in the past. She is unsure if she has a history of heart failure she is not on any Lasix. (Alla Lou) - Related Data Home Medications Medication Instructions Recorded Confirmed Phenytoin [Dilantin Chew] 50 mg PO BID 02/13/20 01/17/23 Phenytoin Sodium Extended 100 mg PO BID 04/26/21 01/17/23 [Dilantin] lisinopriL [Zestril] 10 mg PO BID 04/26/21 01/17/23 Aspirin 81 mg PO DAILY 01/17/23 01/17/23 Vit C/E/Zn/Coppr/Lutein/Zeaxan 2 each PO DAILY 01/17/23 01/17/23 [Preservision Areds 2 Softgel] Previous Rx's Medication Instructions Recorded amLODIPine [Norvasc] 10 mg PO DAILY #90 tab 02/16/20 Furosemide [Lasix] 20 mg PO DAILY 7 Days #7 tab 02/07/23 Allergies Allergy/AdvReac Type Severity Reaction Status Date / Time amoxicillin Allergy Unknown-per Verified 02/07/23 15:34 PCP clarithromycin [From Biaxin] Allergy Unknown-per Verified 02/07/23 15:34 PCP sinutab Allergy Unknown-per Uncoded 02/07/23 15:34 PCP Review of Systems ROS Other: All systems not noted in ROS Statement are negative. <Fracisco Collins - Last Filed: 02/07/23 15:02> ROS Other: All systems not noted in ROS Statement are negative. <DashaAlla - Last Filed: 02/07/23 20:38> ROS Statement: Those systems with pertinent positive or pertinent negative responses have been documented in the HPI. Past Medical History Past Medical History: Atrial Fibrillation, Cancer, COPD, Hypertension, Osteoar thritis (OA) Additional Past Medical History / Comment(s): emphysema, son & pt. unsure of atrial fib hx., cervical CA, LUNG CA 35 yrs. ago, takes anti-seizure med because of aneurysm hx., hx. 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 History of Any Multi-Drug Resistant Organisms: None Reported Past Surgical History: Cholecystectomy, Hysterectomy, Pacemaker Additional Past Surgical History / Comment(s): partial rt lung removed for CA. Brain Aneurysm removed x3 1989 Past Anesthesia/Blood Transfusion Reactions: No Reported Reaction Type of Cardiac Device: Biventricular Pacemaker Device Placement Date:: Feb 2020 Past Psychological History: No Psychological Hx Reported Additional Psychological History / Comment(s): Pt resides with her fariba and granddaughter. she occasionally uses a cane to ambulate. She still drives. Smoking Status: Former smoker Past Alcohol Use History: None Reported Additional Past Alcohol Use History / Comment(s): Pt started smoking in 1 and quit in 1994. Past Drug Use History: None Reported - Past Family History Mother Family Medical History: Diabetes Mellitus Father Additional Family Medical History / Comment(s): Hiatal hernia <Fracisco Collins - Last Filed: 02/07/23 15:02> General Exam <Fracisco Collins - Last Filed: 02/07/23 15:02> Limitations: no limitations General appearance: alert, in no apparent distress Head exam: Present: atraumatic Eye exam: Present: normal appearance ENT exam: Present: normal exam Respiratory exam: Present: normal lung sounds bilaterally Cardiovascular Exam: Present: regular rate, normal rhythm, other (+1 pedal edema) Extremities exam: Present: normal inspection, full ROM, other (Moderate swelling to the right lower leg with chronic discoloration. There is a 1 cm very superficial area of open skin over the midanterior palma with very minimal clear drainage. No abscess no surrounding erythema. Minimal range of motion of the ankle joint. No signs of compartment syndrome or ) <Alla Lou - Last Filed: 02/07/23 20:38> - General Exam Comments Initial Comments: Visual Physical Exam Vital signs reviewed General: Well-appearing, nontoxic, no acute distress. Head: Normocephalic, atraumatic Eyes: PERRLA, EOMI ENT: Airway patent Chest: Nonlabored breathing Skin: No visual rash, normal skin tone Neuro: Alert and oriented 3 Musculoskeletal: No gross abnormalities (Fracisco Collins) Course <Alla Lou - Last Filed: 02/07/23 20:38> Vital Signs 02/07/23 02/07/23 02/07/23 15:30 15:34 17:34 Temperature 98.6 F 98.1 F Pulse Rate 85 86 86 Respiratory 20 18 18 Rate Blood Pressure 143/66 140/65 140/65 O2 Sat by Pulse 95 97 95 Oximetry 02/07/23 19:41 Temperature 98.2 F Pulse Rate 87 Respiratory 18 Rate Blood Pressure 143/67 O2 Sat by Pulse 95 Oximetry - Reevaluation(s) Reevaluation #1: 02/07/23 20:33 Discussed patient's labs and imaging with the patient. Patient prefers to follow up as an outpatient and start outpatient Lasix instead of being admitted. She understands she is to follow-up with the PCP for further evaluation and management. She understands I return to the emergency room. (Alla Lou) Medical Decision Making <Fracisco Collins - Last Filed: 02/07/23 15:02> - Lab Data Result diagrams: 02/07/23 17:40 02/07/23 17:40 - Radiology Data Radiology results: report reviewed, image reviewed <Alla Lou - Last Filed: 02/07/23 20:38> - Medical Decision Making I performed the quick note portion of this chart signed Fracisco Collins PA-C (Fracisco Collins) Was pt. sent in by a medical professional or institution ([facility]NA Reynolds, VICE CHANCELLOR, urgent care, hospital, or prison...) When possible be specific @ -[No] Did you speak to anyone other than the patient for history (EMS, parent, family, police, friend...)? What history was obtained from this source @ -[No] Did you review nursing and triage notes (agree or disagree)? Why? @ -[I reviewed and agree with nursing and triage notes] Were old charts reviewed (outside hosp., previous admission, EMS record, old EKG, old radiological studies, urgent care reports/EKG's, prison records)? Report findings @ -[No old charts were reviewed] Differential Diagnosis (chest pain, altered mental status, abdominal pain women, abdominal pain men, vaginal bleeding, weakness, fever, dyspnea, syncope, headache, dizziness, GI bleed, back pain, seizure, CVA, palpatations, mental health, musculoskeletal)? @ -DVT, cellulitis, peripheral edema, or failure EKG interpreted by me (3pts min.). @ -[As above] X-rays interpreted by me (1pt min.). @ -[None done] CT interpreted by me (1pt min.). @ -[None done] U/S interpreted by me (1pt. min.). @ -No obvious DVT seen. Radiology report pending for confirmation of acute changes. What testing was considered but not performed or refused? (CT, X-rays, U/S, labs)? Why? @ -[None] What meds were considered but not given or refused? Why? @ -[None] Did you discuss the management of the patient with other professionals (professionals i.e. , KEYANNA, VICE CHANCELLOR, lab, RT, psych nurse, health social work professor, bus driver supervisor, teacher, health promotion officer, shoe caser)? Give summary @ -Patient's symptoms are And management with attending ED physician Dr. Joseph today Was smoking cessation discussed for >3mins.? @ -[No] Was critical care preformed (if so, how long)? @ -[No] Were there social determinants of health that impacted care today? How? (Homelessness, low income, unemployed, alcoholism, drug addiction, transportation, low edu. Level, literacy, decrease access to med. care, correction, rehab)? @ -[No] Was there de-escalation of care discussed even if they declined (Discuss DNR or withdrawal of care, Hospice)? DNR status @ -[No] What co-morbidities impacted this encounter? (DM, HTN, Smoking, COPD, CAD, Cancer, CVA, ARF, Chemo, Hep., AIDS, mental health diagnosis, sleep apnea, morbid obesity)? @ -Hypertension Was patient admitted / discharged? Hospital course, mention meds given and rou te, prescriptions, significant lab abnormalities, going to OR and other pertinent info. @ -Patient will be discharged home and she prefers to start the Lasix as an outpatient. She will follow up with outpatient PCP. She understands signs return to the emergency room. She does not wish to be admitted to the hospital at this time. Undiagnosed new problem with uncertain prognosis? @ -[No] Drug Therapy requiring intensive monitoring for toxicity (Heparin, Nitro, Insulin, Cardizem)? @ -[No] Were any procedures done? @ -[No] Diagnosis/symptom? @ -Peripheral edema, heart failure,\ Acute, or Chronic, or Acute on Chronic? @ -Acute Uncomplicated (without systemic symptoms) or Complicated (systemic symptoms)? @ -[default] Side effects of treatment? @ -[No] Exacerbation, Progression, or Severe Exacerbation? @ -[No] Poses a threat to life or bodily function? How? (Chest pain, [place], [place], pneumonia, PE, COPD, DKA, ARF, appy, cholecystitis, CVA, Diverticulitis, Homicidal, Suicidal, threat to staff... and all critical care pts) @ -[No] (Alla Lou) - Lab Data Lab Results 02/07/23 02/07/23 02/07/23 Range/Units 17:25 17:40 17:40 WBC 4.4 (3.8-10.6) k/uL RBC 3.67 L (3.80-5.40) m/uL Hgb 11.4 (11.4-16.0) gm/dL Hct 34.7 (34.0-46.0) % MCV 94.5 (80.0-100.0) fL MCH 31.1 (25.0-35.0) pg MCHC 32.9 (31.0-37.0) g/dL RDW 14.9 (11.5-15.5) % Plt Count 189 (150-450) k/uL MPV 9.5 Neutrophils % 67 % Lymphocytes % 22 % Monocytes % 9 % Eosinophils % 0 % Basophils % 0 % Neutrophils # 2.9 (1.3-7.7) k/uL Lymphocytes # 1.0 (1.0-4.8) k/uL Monocytes # 0.4 (0-1.0) k/uL Eosinophils # 0.0 (0-0.7) k/uL Basophils # 0.0 (0-0.2) k/uL Poikilocytosis Slight PT (9.0-12.0) sec INR (<1.2) APTT (22.0-30.0) sec Sodium 139 (137-145) mmol/L Potassium 3.5 (3.5-5.1) mmol/L Chloride 104 (98-107) mmol/L Carbon Dioxide 30 (22-30) mmol/L Anion Gap 5 mmol/L BUN 12 (7-17) mg/dL Creatinine 0.89 (0.52-1.04) mg/dL Est GFR (CKD-EPI)AfAm 67 (>60 ml/min/1.73 sqM) Est GFR (CKD-EPI)NonAf 58 (>60 ml/min/1.73 sqM) Glucose 107 H (74-99) mg/dL Plasma Lactic Acid Cesar 1.1 (0.7-2.0) mmol/L Calcium 8.7 (8.4-10.2) mg/dL Total Bilirubin 0.4 (0.2-1.3) mg/dL AST 26 (14-36) U/L ALT 18 (4-34) U/L Alkaline Phosphatase 124 (38-126) U/L C-Reactive Protein 5.2 H (<1.0) mg/dL NT-Pro-B Natriuret Pep 1830 pg/mL Total Protein 6.9 (6.3-8.2) g/dL Albumin 3.9 (3.5-5.0) g/dL 02/07/23 Range/Units 17:40 WBC (3.8-10.6) k/uL RBC (3.80-5.40) m/uL Hgb (11.4-16.0) gm/dL Hct (34.0-46.0) % MCV (80.0-100.0) fL MCH (25.0-35.0) pg MCHC (31.0-37.0) g/dL RDW (11.5-15.5) % Plt Count (150-450) k/uL MPV Neutrophils % % Lymphocytes % % Monocytes % % Eosinophils % % Basophils % % Neutrophils # (1.3-7.7) k/uL Lymphocytes # (1.0-4.8) k/uL Monocytes # (0-1.0) k/uL Eosinophils # (0-0.7) k/uL Basophils # (0-0.2) k/uL Poikilocytosis PT 12.0 (9.0-12.0) sec INR 1.2 H (<1.2) APTT 25.8 (22.0-30.0) sec Sodium (137-145) mmol/L Potassium (3.5-5.1) mmol/L Chloride (98-107) mmol/L Carbon Dioxide (22-30) mmol/L Anion Gap mmol/L BUN (7-17) mg/dL Creatinine (0.52-1.04) mg/dL Est GFR (CKD-EPI)AfAm (>60 ml/min/1.73 sqM) Est GFR (CKD-EPI)NonAf (>60 ml/min/1.73 sqM) Glucose (74-99) mg/dL Plasma Lactic Acid Cesar (0.7-2.0) mmol/L Calcium (8.4-10.2) mg/dL Total Bilirubin (0.2-1.3) mg/dL AST (14-36) U/L ALT (4-34) U/L Alkaline Phosphatase (38-126) U/L C-Reactive Protein (<1.0) mg/dL NT-Pro-B Natriuret Pep pg/mL Total Protein (6.3-8.2) g/dL Albumin (3.5-5.0) g/dL Disposition <Fracisco Collins - Last Filed: 02/07/23 15:02> Is patient prescribed a controlled substance at d/c from ED?: No When asked, does pt state using other controlled substances?: No Time of Disposition: 20:38 <Alla Lou - Last Filed: 02/07/23 20:38> Clinical Impression: Peripheral edema, Heart failure, Elevated brain natriuretic peptide (BNP) level Narrative: FOllow up with PCP for follow up evalaution and further management of the suspected early heart failure and elevated BNP. (Alla Lou) Disposition: HOME SELF-CARE Condition: Good Instructions (If sedation given, give patient instructions): Heart Failure (ER), Lymphedema (ED), Leg Edema (ED), Furosemide (By mouth) Prescriptions: Furosemide [Lasix] 20 mg PO DAILY 7 Days #7 tab Referrals: Claudy Grove MD [Primary Care Provider] - 1-2 days
[2023-02-07 19:36] VITALS: RESP 18
[2023-02-07 19:42] LABS: Basophils % (A) 0 %; Eosinophils % (A) 0 %; HCT 34.7 % (34.0-46.0); HGB 11.4 gm/dL (11.4-16.0); Lymphocytes % (A) 22 %; MCH 31.1 pg (25.0-35.0); MCHC 32.9 g/dL (31.0-37.0); MCV 94.5 fL (80.0-100.0); Mean Platelet Volume 9.5; Monocytes # (A) 0.4 k/uL (0-1.0); Monocytes % (A) 9 %; Neutrophils # (A) 2.9 k/uL (1.3-7.7); Neutrophils % (A) 67 %; Platelet Count 189 k/uL (150-450); Poikilocytosis Slight; RBC 3.67 m/uL (3.80-5.40); RDW 14.9 % (11.5-15.5); WBC 4.4 k/uL (3.8-10.6)
[2023-02-07 19:44] LABS: ALT 18 U/L (4-34); AST 26 U/L (14-36); African American GFR (CKD) 67 (>60 ml/min/1.73 sqM); Albumin 3.9 g/dL (3.5-5.0); Alkaline Phosphatase 124 U/L (38-126); Anion Gap 5 mmol/L; Blood Urea Nitrogen 12 mg/dL (7-17); C Reactive Protein 5.2 mg/dL (<1.0); Calcium 8.7 mg/dL (8.4-10.2); Carbon Dioxide 30 mmol/L (22-30); Chloride 104 mmol/L (98-107); Glucose 107 mg/dL (74-99); NT-Pro-B-Type Natriuretic Pept 1830 pg/mL; Non-African American GFR(CKD) 58 (>60 ml/min/1.73 sqM); Potassium 3.5 mmol/L (3.5-5.1); Sodium 139 mmol/L (137-145); Total Bilirubin 0.4 mg/dL (0.2-1.3); Total Protein 6.9 g/dL (6.3-8.2)
[2023-02-07 19:45] LABS: INR 1.2 (<1.2); Partial Thromboplastin Time 25.8 sec (22.0-30.0)
--- NOTE | 2023-02-07 20:04 | US ---
EXAM: US Duplex Right Lower Extremity Veins CLINICAL HISTORY: Redness and weeping of rt calf x 1 day. No hx of DVT. Takes baby aspirin TECHNIQUE: Real-time duplex ultrasound scan of the right lower extremity veins integrating B-mode two-dimensional vascular structure, Doppler spectral analysis, color flow Doppler imaging and compression. COMPARISON: No relevant prior studies available. FINDINGS: Deep veins: Unremarkable. No DVT in the visualized common femoral, femoral, proximal deep femoral or popliteal veins. The veins demonstrate normal color flow, are normally compressible, with normal phasic flow and/or augmentation response. Superficial veins: Unremarkable. No thrombus in the visualized great saphenous vein. Soft tissues: 2.9 x 0.8 x 1.9 cm right popliteal fossa cyst. Subcutaneous edema to the right calf. IMPRESSION: No DVT. 2.9 x 0.8 x 1.9 cm right popliteal fossa cyst. Subcutaneous edema to the right calf.
[2023-02-07] MEDS ORDERED: FUROSEMIDE 10 MG/ML 2 ML VIAL IV ONE (20:29)
[2023-02-07 21:00] VITALS: BP 176/71; PULSE 88; TEMP 98
[2023-02-07 21:01] LABS: Erythrocyte Sedimentation Rate 16 mm/hr (0-20)
== END 2023-02-07 20:57 | disposition home or self-care (01) ==
LOC: EC 14:42
DX: R79.0 Abnormal level of blood mineral (principal); I48.91 Unspecified atrial fibrillation; J44.9 Chronic obstructive pulmonary disease, unspecified; I10 Essential (primary) hypertension; Z87.891 Personal history of nicotine dependence; Z79.82 Long term (current) use of aspirin; Z79.899 Other long term (current) drug therapy; Z88.0 Allergy status to penicillin; Z88.6 Allergy status to analgesic agent; Z88.8 Allergy status to other drugs, medicaments and biological substances
CPT/HCPCS: 36415; 83880; 80053; 85652; 83605; 85025; 85610; 85730; 86140; 87040; 93971; 99284; 96374; J1940

== ENCOUNTER 2023-05-25 21:20 | Emergency (ER) | payer MEDICARE ==
[2023-05-25 21:31] VITALS: PULSE 80; RESP 18; TEMP 98.7
--- NOTE | 2023-05-25 21:31 | ED ---
General Adult HPI - General Stated complaint: right side numbness Time Seen by Provider: 05/25/23 21:29 - History of Present Illness Initial comments: 87-year-old female presenting to the ED with a chief complaint of numbness. Per daughter, approximately 6 PM today patient noted some paresthesias of her right arm weakness as well. Per patient's daughter, otherwise acting her normal self. At this time, patient reports that this has improved. No chest pain or shortness of breath. No other complaints. - Related Data Home Medications Medication Instructions Recorded Confirmed Phenytoin [Dilantin Chew] 50 mg PO BID 02/13/20 01/17/23 Phenytoin Sodium Extended 100 mg PO BID 04/26/21 01/17/23 [Dilantin] lisinopriL [Zestril] 10 mg PO BID 04/26/21 01/17/23 Aspirin 81 mg PO DAILY 01/17/23 01/17/23 Vit C/E/Zn/Coppr/Lutein/Zeaxan 2 each PO DAILY 01/17/23 01/17/23 [Preservision Areds 2 Softgel] Previous Rx's Medication Instructions Recorded amLODIPine [Norvasc] 10 mg PO DAILY #90 tab 02/16/20 Furosemide [Lasix] 20 mg PO DAILY 7 Days #7 tab 02/07/23 Allergies Allergy/AdvReac Type Severity Reaction Status Date / Time amoxicillin Allergy Unknown-per Verified 02/07/23 15:34 PCP clarithromycin [From Biaxin] Allergy Unknown-per Verified 02/07/23 15:34 PCP sinutab Allergy Unknown-per Uncoded 02/07/23 15:34 PCP Review of Systems ROS Statement: Those systems with pertinent positive or pertinent negative responses have been documented in the HPI. ROS Other: All systems not noted in ROS Statement are negative. Past Medical History Past Medical History: Atrial Fibrillation, Cancer, COPD, Hypertension, Osteoarthritis (OA) Additional Past Medical History / Comment(s): emphysema, son & pt. unsure of atrial fib hx., cervical CA, LUNG CA 35 yrs. ago, takes anti-seizure med because of aneurysm hx., hx. 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 History of Any Multi-Drug Resistant Organisms: None Reported Past Surgical History: Cholecystectomy, Hysterectomy, Pacemaker Additional Past Surgical History / Comment(s): partial rt lung removed for CA. Brain Aneurysm removed x3 1989 Past Anesthesia/Blood Transfusion Reactions: No Reported Reaction Type of Cardiac Device: Biventricular Pacemaker Device Placement Date:: Feb 2020 Past Psychological History: No Psychological Hx Reported Smoking Status: Former smoker Past Alcohol Use History: None Reported Past Drug Use History: None Reported - Past Family History Mother Family Medical History: Diabetes Mellitus Father Additional Family Medical History / Comment(s): Hiatal hernia General Exam - General Exam Comments Initial Comments: Visual Physical Exam Vital signs reviewed General: Well-appearing, nontoxic, no acute distress. Head: Normocephalic, atraumatic Eyes: PERRLA, EOMI ENT: Airway patent Chest: Nonlabored breathing Skin: No visual rash, normal skin tone Neuro: Alert and oriented 3 Musculoskeletal: No gross abnormalities Limitations: no limitations General appearance: alert, in no apparent distress Eye exam: Present: PERRL, EOMI Pupils: Present: normal accommodation ENT exam: Present: mucous membranes moist Neck exam: Present: normal inspection Respiratory exam: Present: normal lung sounds bilaterally Cardiovascular Exam: Present: regular rate, normal rhythm GI/Abdominal exam: Present: soft Extremities exam: Present: normal inspection Back exam: Present: normal inspection Neurological exam: Present: alert, oriented X3, CN II-XII intact, other (Finger to nose, rapid alternating hand movements, [id number] intact.) Skin exam: Present: warm, dry Course Vital Signs 05/25/23 21:24 Temperature 98.7 F Pulse Rate 80 Respiratory 18 Rate Blood Pressure 148/62 O2 Sat by Pulse 94 L Oximetry Medical Decision Making - Medical Decision Making Was pt. sent in by a medical professional or institution (, PA, FEED MIXER HELPER, urgent care, hospital, or retirement...) When possible be specific @ -No Did you speak to anyone other than the patient for history (EMS, parent, family, police, friend...)? What history was obtained from this source @ -Spoke to the patient's daughter who reportedly parts of history. For further details please see HPI. Did you review nursing and triage notes (agree or disagree)? Why? @ -I reviewed and agree with nursing and triage notes Were old charts reviewed (outside hosp., previous admission, EMS record, old EKG, old radiological studies, urgent care reports/EKG's, retirement records)? Report findings @ -No old charts were reviewed Differential Diagnosis (chest pain, altered mental status, abdominal pain women, abdominal pain men, vaginal bleeding, weakness, fever, dyspnea, syncope, headache, dizziness, GI bleed, back pain, seizure, CVA, palpatations, mental health, musculoskeletal)? @ -Differential Altered Mental Status: Hypoglycemia, DKA, hypercapnia, ETOH, overdose, CO poisoning, trauma, myxedema coma, HTN encephalopathy, infection, encephalitis, psychosis, intercranial hemor rhage, hepatic encephalopathy, meningitis, CVA, this is not meant to be an all- inclusive list EKG interpreted by me (3pts min.). @ -EKG interpreted by me shows a sinus rhythm at [address] or T- wave changes. IL 162, QRS 101, QT/QTC 382/407. X-rays interpreted by me (1pt min.). @ -None done CT interpreted by me (1pt min.). @ -CT brain interpreted by me showing no evidence of bleed, infarct, or other acute process. U/S interpreted by me (1pt. min.). @ -None done What testing was considered but not performed or refused? (CT, X-rays, U/S, labs)? Why? @ -None What meds were considered but not given or refused? Why? @ -None Did you discuss the management of the patient with other professionals (professionals i.e. , PA, FEED MIXER HELPER, lab, RT, psych nurse, case management social worker, rubber stamp dies inspector, teacher, service officer, case management social worker)? Give summary @ -No Was smoking cessation discussed for >3mins.? @ -No Was critical care preformed (if so, how long)? @ -No Were there social determinants of health that impacted care today? How? (Homelessness, low income, unemployed, alcoholism, drug addiction, transportation, low edu. Level, literacy, decrease access to med. care, senior living, rehab)? @ -No Was there de-escalation of care discussed even if they declined (Discuss DNR or withdrawal of care, Hospice)? DNR status @ -No What co-morbidities impacted this encounter? (DM, HTN, Smoking, COPD, CAD, Cancer, CVA, ARF, Chemo, Hep., AIDS, mental health diagnosis, sleep apnea, morb id obesity)? @ -None Was patient admitted / discharged? Hospital course, mention meds given and route, prescriptions, significant lab abnormalities, going to OR and other pertinent info. @ -Discharge 87-year-old female presenting to the ED with complaints of paresthesias of her right arm starting today. Laboratory studies including CBC, coagulation studies, chemistry panel, troponin reviewed. Labs largely unremarkable. Imaging of the brain shows no evidence of acute process. He was offered an observation stay to see neurology however at this time would like to be discharged home. Patient for report that they will present to their neurologist for follow-up. Time, vital signs stable afebrile. Discharged home in stable condition. Discussed return precautions with patient and patient's daughter who verbalized agreement. Undiagnosed new problem with uncertain prognosis? @ -No Drug Therapy requiring intensive monitoring for toxicity (Heparin, Nitro, Insulin, Cardizem)? @ -No Were any procedures done? @ -No Diagnosis/symptom? @ -Paresthesia Acute, or Chronic, or Acute on Chronic? @ -Acute Uncomplicated (without systemic symptoms) or Complicated (systemic symptoms)? @ -Uncomplicated Side effects of treatment? @ -No Exacerbation, Progression, or Severe Exacerbation? @ -No Poses a threat to life or bodily function? How? (Chest pain, [place], [place], pneumonia, PE, COPD, DKA, ARF, appy, cholecystitis, CVA, Diverticulitis, Homicidal, Suicidal, threat to staff... and all critical care pts) @ -No - Lab Data Result diagrams: 05/25/23 21:41 05/25/23 21:41 Lab Results 05/25/23 05/25/23 05/25/23 Range/Units 21:41 21:41 21:41 WBC 4.5 (3.8-10.6) k/uL RBC 3.88 (3.80-5.40) m/uL Hgb 12.0 (11.4-16.0) gm/dL Hct 36.2 (34.0-46.0) % MCV 93.2 (80.0-100.0) fL MCH 30.9 (25.0-35.0) pg MCHC 33.1 (31.0-37.0) g/dL RDW 14.1 (11.5-15.5) % Plt Count 155 (150-450) k/uL MPV 9.2 Neutrophils % 58 % Lymphocytes % 30 % Monocytes % 9 % Eosinophils % 0 % Basophils % 1 % Neutrophils # 2.6 (1.3-7.7) k/uL Lymphocytes # 1.3 (1.0-4.8) k/uL Monocytes # 0.4 (0-1.0) k/uL Eosinophils # 0.0 (0-0.7) k/uL Basophils # 0.0 (0-0.2) k/uL PT 12.2 (10.0-12.5) sec INR 1.1 (<1.2) APTT 24.4 (22.0-30.0) sec Sodium 141 (137-145) mmol/L Potassium 4.3 (3.5-5.1) mmol/L Chloride 105 (98-107) mmol/L Carbon Dioxide 28 (22-30) mmol/L Anion Gap 8 mmol/L BUN 30 H (7-17) mg/dL Creatinine 0.98 (0.52-1.04) mg/dL Est GFR (CKD-EPI)AfAm 59 (>60 ml/min/1.73 sqM) Est GFR (CKD-EPI)NonAf 51 (>60 ml/min/1.73 sqM) Glucose 114 H (74-99) mg/dL Calcium 8.8 (8.4-10.2) mg/dL Total Bilirubin 0.3 (0.2-1.3) mg/dL AST 23 (14-36) U/L ALT 16 (4-34) U/L Alkaline Phosphatase 115 (38-126) U/L Troponin I (0.000-0.034) ng/mL Total Protein 6.8 (6.3-8.2) g/dL Albumin 4.0 (3.5-5.0) g/dL 05/25/23 Range/Units 21:41 WBC (3.8-10.6) k/uL RBC (3.80-5.40) m/uL Hgb (11.4-16.0) gm/dL Hct (34.0-46.0) % MCV (80.0-100.0) fL MCH (25.0-35.0) pg MCHC (31.0-37.0) g/dL RDW (11.5-15.5) % Plt Count (150-450) k/uL MPV Neutrophils % % Lymphocytes % % Monocytes % % Eosinophils % % Basophils % % Neutrophils # (1.3-7.7) k/uL Lymphocytes # (1.0-4.8) k/uL Monocytes # (0-1.0) k/uL Eosinophils # (0-0.7) k/uL Basophils # (0-0.2) k/uL PT (10.0-12.5) sec INR (<1.2) APTT (22.0-30.0) sec Sodium (137-145) mmol/L Potassium (3.5-5.1) mmol/L Chloride (98-107) mmol/L Carbon Dioxide (22-30) mmol/L Anion Gap mmol/L BUN (7-17) mg/dL Creatinine (0.52-1.04) mg/dL Est GFR (CKD-EPI)AfAm (>60 ml/min/1.73 sqM) Est GFR (CKD-EPI)NonAf (>60 ml/min/1.73 sqM) Glucose (74-99) mg/dL Calcium (8.4-10.2) mg/dL Total Bilirubin (0.2-1.3) mg/dL AST (14-36) U/L ALT (4-34) U/L Alkaline Phosphatase (38-126) U/L Troponin I <0.012 (0.000-0.034) ng/mL Total Protein (6.3-8.2) g/dL Albumin (3.5-5.0) g/dL Disposition Clinical Impression: Paresthesia Disposition: HOME SELF-CARE Condition: Good Additional Instructions: Please return to the Emergency Department if symptoms worsen or any other concerns. Please follow-up with your neurologist. Is patient prescribed a controlled substance at d/c from ED?: No Referrals: Claudy Grove MD [Primary Care Provider] - 1-2 days Time of Disposition: 23:24
[2023-05-25 22:20] LABS: Basophils % (A) 1 %; Eosinophils % (A) 0 %; HCT 36.2 % (34.0-46.0); INR 1.1 (<1.2); Lymphocytes # (A) 1.3 k/uL (1.0-4.8); Lymphocytes % (A) 30 %; MCH 30.9 pg (25.0-35.0); MCHC 33.1 g/dL (31.0-37.0); MCV 93.2 fL (80.0-100.0); Mean Platelet Volume 9.2; Monocytes # (A) 0.4 k/uL (0-1.0); Monocytes % (A) 9 %; Neutrophils # (A) 2.6 k/uL (1.3-7.7); Neutrophils % (A) 58 %; Partial Thromboplastin Time 24.4 sec (22.0-30.0); Platelet Count 155 k/uL (150-450); Prothrombin Time 12.2 sec (10.0-12.5); RBC 3.88 m/uL (3.80-5.40); RDW 14.1 % (11.5-15.5); WBC 4.5 k/uL (3.8-10.6)
[2023-05-25 22:31] LABS: ALT 16 U/L (4-34); AST 23 U/L (14-36); African American GFR (CKD) 59 (>60 ml/min/1.73 sqM); Alkaline Phosphatase 115 U/L (38-126); Anion Gap 8 mmol/L; Blood Urea Nitrogen 30 mg/dL (7-17); Calcium 8.8 mg/dL (8.4-10.2); Carbon Dioxide 28 mmol/L (22-30); Chloride 105 mmol/L (98-107); Glucose 114 mg/dL (74-99); Non-African American GFR(CKD) 51 (>60 ml/min/1.73 sqM); Potassium 4.3 mmol/L (3.5-5.1); Sodium 141 mmol/L (137-145); Total Bilirubin 0.3 mg/dL (0.2-1.3); Total Protein 6.8 g/dL (6.3-8.2)
--- NOTE | 2023-05-25 22:31 | CT ---
EXAMINATION TYPE: CT brain cspine wo con CT DLP: 1313.3 mGycm, Automated exposure control for dose reduction was used. DATE OF EXAM: 05/25/2023 9:54 PM COMPARISON: 01/22/2023.. CLINICAL INDICATION:Female, 87 years old with history of weakness, AMS; ams, possible fall TECHNIQUE: Brain: Multiple axial CT images of the brain were obtained without IV contrast. Cspine: Axial CT images from the skull base to the inferior aspect of T2 we obtained without intraven ous contrast. Coronal and sagittal reformatted images were also reviewed. FINDINGS: Brain: Extra-axial spaces: No abnormal extra-axial fluid collections. Ventricular system: Within normal limits Cerebral parenchyma: No acute intraparenchymal hemorrhage or mass effect. The gardner-white junction is well differentiated. Cerebellum: Unremarkable. Mass effect: No evidence of midline shift. Intracranial vasculature: Aneurysm clips noted. This atherosclerosis of the intracranial vasculature. Soft tissues: Normal. Calvarium/osseous structures: No depressed skull fracture. Post treatment changes to the skull with w idening of the diploic space most pronounced anteriorly. Surgical clips present bilaterally in the mi ddle cranial fossa cyst. Paranasal sinuses and mastoid air cells: Clear. Visualized orbits: Bilaterally aphakia. Cervical spine: Fracture: None. Osseous structures: Multilevel degenerative disc disease changes with endplate spurring and disc oste ophyte complex's. Vertebral alignment: Within normal limits. Spinal canal/Neural Foramina: Disc osteophyte complexes at C5-C7 with at least mild spinal canal sten osis. No evidence for significant neural foraminal stenosis. Neck soft tissues: Prevertebral soft tissues are within normal limits. Other: The airway is patent. Mild emphysema changes in lung apices. IMPRESSION: 1. Postsurgical changes, no acute intracranial process. 2. No evidence of cervical spine fracture. 3. Moderate multilevel degenerative disc disease. 4. Mild to moderate emphysema changes.
[2023-05-25] MEDS ORDERED: SODIUM CHLORIDE 0.9% 500 ML 500 ML IV STA (23:20)
[2023-05-26 00:36] VITALS: BP 132/72
== END 2023-05-26 00:26 | disposition home or self-care (01) ==
LOC: EC 21:20
DX: R20.2 Paresthesia of skin (principal); I48.91 Unspecified atrial fibrillation; I10 Essential (primary) hypertension; J43.9 Emphysema, unspecified; I25.2 Old myocardial infarction; Z87.891 Personal history of nicotine dependence; Z95.0 Presence of cardiac pacemaker; Z79.82 Long term (current) use of aspirin; Z88.1 Allergy status to other antibiotic agents; Z88.8 Allergy status to other drugs, medicaments and biological substances; Z79.899 Other long term (current) drug therapy
CPT/HCPCS: 36415; 70450; 72125; 80053; 84484; 85025; 85610; 85730; 93005; 96360; 99284

== ENCOUNTER 2023-06-17 18:35 | Inpatient (IN) | payer MEDICARE ==
[2023-06-17] MEDS ORDERED: methylPREDNISolone SOD SUCCI 125 MG/2 ML VIAL IV STA (19:50)
[2023-06-17] MEDS ORDERED: IPRATROPIUM-ALBUTEROL 3 ML NEB INHALATION STA (19:50)
--- NOTE | 2023-06-17 20:13 | XR ---
EXAMINATION TYPE: XR chest 2V DATE OF EXAM: 06/17/2023 COMPARISON: 07/22/2021 INDICATION: Difficulty breathing and shortness of breath TECHNIQUE: Frontal and lateral views of the chest are obtained. FINDINGS: The heart size is normal. The pulmonary vasculature is somewhat prominent. Bibasilar infiltrates are present. Bilateral small pleural effusions appear to be present. Pacemaker overlies left chest IMPRESSION: 1. Bibasilar infiltrates. Correlate for atelectasis. 2. Small right and minimal left pleural effusion
--- NOTE | 2023-06-17 21:01 | ED ---
SOB HPI - General Source: patient, EMS Mode of arrival: EMS <Isabel Heard - Last Filed: 06/17/23 20:56> <Win Grady - Last Filed: 06/26/23 09:25> - General Chief Complaint: Shortness of Breath Stated Complaint: SOB - History of Present Illness Initial Comments: 87-year-old female with past medical history of A. fib, lung cancer in remission, COPD who presents emergency Department with shortness of breath. States she's been short of breath for the past 3 days. She has oxygen at home. She has been wearing 2 L with some improvement in her symptoms. She has been using her nebulizer. She has been taking Lasix 20 mg daily continues to have lower extremity edema. She denies any chest pain. No fevers. Mild nonproductive cough. No other alleviating, precipitating or modifying factors (Isabel Heard) - Related Data Home Medications Medication Instructions Recorded Confirmed Phenytoin [Dilantin Chew] 50 mg PO BID 02/13/20 06/17/23 Phenytoin Sodium Extended 100 mg PO BID 04/26/21 06/17/23 [Dilantin] lisinopriL [Zestril] 10 mg PO BID 04/26/21 06/17/23 Albuterol Inhaler [Ventolin Hfa 1 - 2 puff INHALATION RT-Q6H PRN 06/17/23 06/17/23 Inhaler] Atorvastatin [Lipitor] 20 mg PO DAILY 06/17/23 06/17/23 Ipratropium-Albuterol Nebulize 3 ml INHALATION RT-QID PRN 06/17/23 06/17/23 [Duoneb 0.5 mg-3 mg/3 ml Soln] Metoprolol Succinate (ER) [Toprol 75 mg PO DAILY 06/17/23 06/17/23 XL] Previous Rx's Medication Instructions Recorded amLODIPine [Norvasc] 10 mg PO DAILY #90 tab 02/16/20 Famotidine [Pepcid] 20 mg PO DAILY #30 tablet 06/19/23 Furosemide [Lasix] 40 mg PO BID@0900,1600 #60 tab 06/19/23 Allergies Allergy/AdvReac Type Severity Reaction Status Date / Time amoxicillin Allergy Unknown-per Verified 06/17/23 20:33 PCP clarithromycin [From Biaxin] Allergy Unknown-per Verified 06/17/23 20:33 PCP sinutab Allergy Unknown-per Uncoded 02/07/23 15:34 PCP Review of Systems ROS Other: All systems not noted in ROS Statement are negative. <Isabel Heard - Last Filed: 06/17/23 20:56> ROS Other: All systems not noted in ROS Statement are negative. <Win Grady - Last Filed: 06/26/23 09:25> ROS Statement: Those systems with pertinent positive or pertinent negative responses have been documented in the HPI. Past Medical History Past Medical History: Atrial Fibrillation, Cancer, COPD, Hypertension, Osteoarthritis (OA) Additional Past Medical History / Comment(s): emphysema, son & pt. unsure of atrial fib hx., cervical CA, LUNG CA 35 yrs. ago, takes anti-seizure med because of aneurysm hx., hx. 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 History of Any Multi-Drug Resistant Organisms: None Reported Past Surgical History: Cholecystectomy, Hysterectomy, Pacemaker Additional Past Surgical History / Comment(s): partial rt lung removed for CA. Brain Aneurysm removed x3 1989 Past Anesthesia/Blood Transfusion Reactions: No Reported Reaction Type of Cardiac Device: Biventricular Pacemaker Device Placement Date:: Feb 2020 Past Psychological History: No Psychological Hx Reported Smoking Status: Former smoker Past Alcohol Use History: None Reported Past Drug Use History: None Reported - Past Family History Mother Family Medical History: Diabetes Mellitus Father Additional Family Medical History / Comment(s): Hiatal hernia <Isabel Heard - Last Filed: 06/17/23 20:56> General Exam General appearance: alert, in no apparent distress Head exam: Present: atraumatic, normocephalic, normal inspection Eye exam: Present: normal appearance, PERRL, EOMI. Absent: scleral icterus, co njunctival injection, periorbital swelling ENT exam: Present: normal exam, mucous membranes moist Neck exam: Present: normal inspection. Absent: tenderness, meningismus, lymphadenopathy Respiratory exam: Present: decreased breath sounds, other (Tachypnea). Absent: respiratory distress, wheezes, rales, rhonchi, stridor Cardiovascular Exam: Present: regular rate, normal rhythm, normal heart sounds. Absent: systolic murmur, diastolic murmur, rubs, gallop, clicks GI/Abdominal exam: Present: soft, normal bowel sounds. Absent: distended, tenderness, guarding, rebound, rigid Extremities exam: Present: normal inspection, full ROM, normal capillary refill. Absent: tenderness, pedal edema, joint swelling, calf tenderness Back exam: Present: normal inspection Neurological exam: Present: alert, oriented X3, CN II-XII intact Psychiatric exam: Present: normal affect, normal mood Skin exam: Present: warm, dry, intact, normal color. Absent: rash <Isabel Heard - Last Filed: 06/17/23 20:56> Course Vital Signs 06/17/23 06/17/23 06/17/23 18:49 19:28 20:14 Temperature 97.6 F Pulse Rate 62 61 Pulse Rate [ Pulse Oximetery ] Respiratory 23 23 Rate Blood Pressure 181/86 Blood Pressure [Left Arm] O2 Sat by Pulse 98 Oximetry 06/17/23 06/17/23 06/17/23 20:27 21:06 22:38 Temperature Pulse Rate 61 72 62 Pulse Rate [ Pulse Oximetery ] Respiratory 18 20 Rate Blood Pressure 171/78 156/64 Blood Pressure [Left Arm] O2 Sat by Pulse 95 97 Oximetry 06/17/23 06/18/23 23:56 02:00 Temperature 96.9 F L Pulse Rate 55 L Pulse Rate [ 61 Pulse Oximetery ] Respiratory 25 H 20 Rate Blood Pressure 150/68 Blood Pressure 146/80 [Left Arm] O2 Sat by Pulse 93 L 97 Oximetry Medical Decision Making <Isabel eHard - Last Filed: 06/17/23 20:56> - Lab Data Result diagrams: 06/19/23 06:14 06/19/23 06:14 - EKG Data -: EKG Interpreted by Id EKG shows normal: axis (Normal) Interpretation: other (There is a paced rhythm at proximal 61 bpm.) <Win Grady - Last Filed: 06/26/23 09:25> - Medical Decision Making Was pt. sent in by a medical professional or institution (, PA, DYNAMOTOR REPAIRER, urgent care, hospital, or fci...) When possible be specific @ -[No] Did you speak to anyone other than the patient for history (EMS, parent, family, police, friend...)? What history was obtained from this source @ -[No] Did you review nursing and triage notes (agree or disagree)? Why? @ -[I reviewed and agree with nursing and triage notes] Were old charts reviewed (outside hosp., previous admission, EMS record, old EKG, old radiological studies, urgent care reports/EKG's, fci records)? Report findings @ -[No old charts were reviewed] Differential Diagnosis (chest pain, altered mental status, abdominal pain women, abdominal pain men, vaginal bleeding, weakness, fever, dyspnea, syncope, headache, dizziness, GI bleed, back pain, seizure, CVA, palpatations, mental health, musculoskeletal)? @ -[not applicable] EKG interpreted by me (3pts min.). @ -[As above] X-rays interpreted by me (1pt min.). @ -[None done] CT interpreted by me (1pt min.). @ -[None done] U/S interpreted by me (1pt. min.). @ -[None done] What testing was considered but not performed or refused? (CT, X-rays, U/S, labs)? Why? @ -[None] What meds were considered but not given or refused? Why? @ -[None] Did you discuss the management of the patient with other professionals (professionals i.e. , PA, DYNAMOTOR REPAIRER, lab, RT, psych nurse, drug abuse social worker, criminal lawyer, teacher, interface control officer, child welfare caseworker)? Give summary @ -[No] Was smoking cessation discussed for >3mins.? @ -[No] Was critical care preformed (if so, how long)? @ -[No] Were there social determinants of health that impacted care today? How? (Homelessness, low income, unemployed, alcoholism, drug addiction, transportation, low edu. Level, literacy, decrease access to med. care, residential, rehab)? @ -[No] Was there de-escalation of care discussed even if they declined (Discuss DNR or withdrawal of care, Hospice)? DNR status @ -[No] What co-morbidities impacted this encounter? (DM, HTN, Smoking, COPD, CAD, Cancer, CVA, ARF, Chemo, Hep., AIDS, mental health diagnosis, sleep apnea, morbid obesity)? @ -[None] Was patient admitted / discharged? Hospital course, mention meds given and route, prescriptions, significant lab abnormalities, going to OR and other pertinent info. @ -Upon arrival patient was placed into room 25. A thorough history and physical exam was performed. Nebulizer breathing Eatman is ordered as well as steroids. Laboratory studies are conducted and chest x-rays performed. Cora iting laboratory studies at this time. Patient will be signed out to Dr. Pickett Undiagnosed new problem with uncertain prognosis? @ -[No] Drug Therapy requiring intensive monitoring for toxicity (Heparin, Nitro, Insulin, Cardizem)? @ -[No] Were any procedures done? @ -[No] Diagnosis/symptom? @ -[default] Acute, or Chronic, or Acute on Chronic? @ -[default] Uncomplicated (without systemic symptoms) or Complicated (systemic symptoms)? @ -[default] Side effects of treatment? @ -[No] Exacerbation, Progression, or Severe Exacerbation? @ -[No] Poses a threat to life or bodily function? How? (Chest pain, USA, PR, pneumonia, PE, COPD, DKA, ARF, appy, cholecystitis, CVA, Diverticulitis, Homicidal, Suicidal, threat to staff... and all critical care pts) @ -[No] (Isabel Heard) I receive this patient has a sign out pending the studies. The patient's workup does reveal a BNP which is high for her baseline. The patient remains somewhat dyspneic. Urinary tract infection is found as well. The patient will be admitted for further management Was pt. sent in by a medical professional or institution (, PA, DYNAMOTOR REPAIRER, urgent care, hospital, or fci...) When possible be specific Was patient admitted / discharged? Hospital course, mention meds given and route, prescriptions, significant lab abnormalities, going to OR and other pertinent info. @ -[As above Undiagnosed new problem with uncertain prognosis? @ -[No] Drug Therapy requiring intensive monitoring for toxicity (Heparin, Nitro, Insu prieto, Cardizem)? @ -[No] Were any procedures done? @ -[No] Diagnosis/symptom? @ -[Acute dyspnea Congestive heart failure exacerbation Acute urinary tract infection Acute, or Chronic, or Acute on Chronic? @ -[Acute Uncomplicated (without systemic symptoms) or Complicated (systemic symptoms)? @ -[Uncomplicated Side effects of treatment? @ -[No] Exacerbation, Progression, or Severe Exacerbation? @ -[No] Poses a threat to life or bodily function? How? (Chest pain, USA, PR, pneumonia, PE, COPD, DKA, ARF, appy, cholecystitis, CVA, Diverticulitis, Homicidal, Suicidal, threat to staff... and all critical care pts) @ -[Yes (Win Grady) - Lab Data Lab Results 06/17/23 06/17/23 06/17/23 Range/Units 20:50 20:50 20:50 WBC 8.2 (3.8-10.6) k/uL RBC 3.90 (3.80-5.40) m/uL Hgb 12.4 (11.4-16.0) gm/dL Hct 37.1 (34.0-46.0) % MCV 95.1 (80.0-100.0) fL MCH 31.8 (25.0-35.0) pg MCHC 33.5 (31.0-37.0) g/dL RDW 14.2 (11.5-15.5) % Plt Count 158 (150-450) k/uL MPV 9.3 Neutrophils % 76 % Lymphocytes % 14 % Monocytes % 7 % Eosinophils % 0 % Basophils % 0 % Neutrophils # 6.2 (1.3-7.7) k/uL Lymphocytes # 1.2 (1.0-4.8) k/uL Monocytes # 0.6 (0-1.0) k/uL Eosinophils # 0.0 (0-0.7) k/uL Basophils # 0.0 (0-0.2) k/uL Hypochromasia Slight PT 13.0 H (10.0-12.5) sec INR 1.2 H (<1.2) APTT 25.1 (22.0-30.0) sec Sodium 140 (137-145) mmol/L Potassium 4.6 (3.5-5.1) mmol/L Chloride 107 (98-107) mmol/L Carbon Dioxide 22 (22-30) mmol/L Anion Gap 11 mmol/L BUN 17 (7-17) mg/dL Creatinine 0.73 (0.52-1.04) mg/dL Est GFR (CKD-EPI)AfAm 85 (>60 ml/min/1.73 sqM) Est GFR (CKD-EPI)NonAf 73 (>60 ml/min/1.73 sqM) Glucose 136 H (74-99) mg/dL Plasma Lactic Acid Cesar (0.7-2.0) mmol/L Calcium 8.6 (8.4-10.2) mg/dL Total Bilirubin 0.6 (0.2-1.3) mg/dL AST 32 (14-36) U/L ALT 24 (4-34) U/L Alkaline Phosphatase 153 H (38-126) U/L Troponin I (0.000-0.034) ng/mL NT-Pro-B Natriuret Pep 4980 pg/mL Total Protein 6.7 (6.3-8.2) g/dL Albumin 3.8 (3.5-5.0) g/dL Influenza Type A (PCR) (Not Detectd) Influenza Type B (PCR) (Not Detectd) RSV (PCR) (Not Detectd) SARS-CoV-2 (PCR) (Not Detectd) 06/17/23 06/17/23 06/17/23 Range/Units 20:50 20:50 20:50 WBC (3.8-10.6) k/uL RBC (3.80-5.40) m/uL Hgb (11.4-16.0) gm/dL Hct (34.0-46.0) % MCV (80.0-100.0) fL MCH (25.0-35.0) pg MCHC (31.0-37.0) g/dL RDW (11.5-15.5) % Plt Count (150-450) k/uL MPV Neutrophils % % Lymphocytes % % Monocytes % % Eosinophils % % Basophils % % Neutrophils # (1.3-7.7) k/uL Lymphocytes # (1.0-4.8) k/uL Monocytes # (0-1.0) k/uL Eosinophils # (0-0.7) k/uL Basophils # (0-0.2) k/uL Hypochromasia PT (10.0-12.5) sec INR (<1.2) APTT (22.0-30.0) sec Sodium (137-145) mmol/L Potassium (3.5-5.1) mmol/L Chloride (98-107) mmol/L Carbon Dioxide (22-30) mmol/L Anion Gap mmol/L BUN (7-17) mg/dL Creatinine (0.52-1.04) mg/dL Est GFR (CKD-EPI)AfAm (>60 ml/min/1.73 sqM) Est GFR (CKD-EPI)NonAf (>60 ml/min/1.73 sqM) Glucose (74-99) mg/dL Plasma Lactic Acid Cesar 1.6 (0.7-2.0) mmol/L Calcium (8.4-10.2) mg/dL Total Bilirubin (0.2-1.3) mg/dL AST (14-36) U/L ALT (4-34) U/L Alkaline Phosphatase (38-126) U/L Troponin I 0.017 (0.000-0.034) ng/mL NT-Pro-B Natriuret Pep pg/mL Total Protein (6.3-8.2) g/dL Albumin (3.5-5.0) g/dL Influenza Type A (PCR) Not Detected (Not Detectd) Influenza Type B (PCR) Not Detected (Not Detectd) RSV (PCR) Not Detected (Not Detectd) SARS-CoV-2 (PCR) Not Detected (Not Detectd) Disposition <Isabel Heard - Last Filed: 06/17/23 20:56> Is patient prescribed a controlled substance at d/c from ED?: No <Win Grady - Last Filed: 06/26/23 09:25> Clinical Impression: Dyspnea, CHF exacerbation, Urinary tract infection Disposition: ADMITTED IP TO THIS HOSP Condition: Fair
[2023-06-17 21:06] LABS: Basophils % (A) 0 %; Eosinophils % (A) 0 %; HCT 37.1 % (34.0-46.0); HGB 12.4 gm/dL (11.4-16.0); Hypochromasia Slight; Lymphocytes # (A) 1.2 k/uL (1.0-4.8); Lymphocytes % (A) 14 %; MCH 31.8 pg (25.0-35.0); MCHC 33.5 g/dL (31.0-37.0); MCV 95.1 fL (80.0-100.0); Mean Platelet Volume 9.3; Monocytes # (A) 0.6 k/uL (0-1.0); Monocytes % (A) 7 %; Neutrophils # (A) 6.2 k/uL (1.3-7.7); Neutrophils % (A) 76 %; Platelet Count 158 k/uL (150-450); RDW 14.2 % (11.5-15.5); WBC 8.2 k/uL (3.8-10.6)
[2023-06-17 21:18] LABS: INR 1.2 (<1.2); Partial Thromboplastin Time 25.1 sec (22.0-30.0)
[2023-06-17 21:22] LABS: ALT 24 U/L (4-34); AST 32 U/L (14-36); African American GFR (CKD) 85 (>60 ml/min/1.73 sqM); Albumin 3.8 g/dL (3.5-5.0); Alkaline Phosphatase 153 U/L (38-126); Anion Gap 11 mmol/L; Blood Urea Nitrogen 17 mg/dL (7-17); Calcium 8.6 mg/dL (8.4-10.2); Carbon Dioxide 22 mmol/L (22-30); Chloride 107 mmol/L (98-107); Glucose 136 mg/dL (74-99); Non-African American GFR(CKD) 73 (>60 ml/min/1.73 sqM); Potassium 4.6 mmol/L (3.5-5.1); Sodium 140 mmol/L (137-145); Total Bilirubin 0.6 mg/dL (0.2-1.3); Total Protein 6.7 g/dL (6.3-8.2)
[2023-06-17 21:30] LABS: NT-Pro-B-Type Natriuretic Pept 4980 pg/mL
[2023-06-18] MEDS ORDERED: FUROSEMIDE 10 MG/ML 4 ML VIAL IV SCH (00:30)
[2023-06-18] MEDS ORDERED: NON FORMULARY DRUG (Albuterol Inhaler 90 MCG Puff) INHALATION PRN (00:35)
[2023-06-18 05:11] LABS: Appearance,Urine Cloudy (Clear); Bacteria,Urine Occasional /hpf; Bilirubin,Urine Negative (Negative); Blood,Urine Negative (Negative); Color,Urine Colorless; Glucose,Urine (UA) Negative (Negative); Ketones,Urine Negative (Negative); Leukocyte Esterase,Urine Moderate (Negative); Mucus,Urine Rare /hpf; Nitrite,Urine Negative (Negative); PH, Urine 5.5 (5.0-8.0); Protein,Urine Negative (Negative); RBC,Urine 117 /hpf (0-5); Specific Gravity,Urine 1.008 (1.001-1.035); Squamous Epithelial Cell,Urine 1 /hpf (0-4); Urobilinogen,Urine <2.0 mg/dL (<2.0); WBC,Urine 7 /hpf (0-5)
[2023-06-18] MEDS ORDERED: NITROGLYCERIN OINT 1 INCH/GM PACKET TOPICAL SCH (06:00)
[2023-06-18] MEDS ORDERED: lisinopriL 10 MG TAB PO SCH (09:00)
[2023-06-18] MEDS: ATORVASTATIN 20 MG TAB PO SCH (09:46)
[2023-06-18] MEDS: FUROSEMIDE 40 MG TAB PO SCH ×2 (09:46→15:43)
[2023-06-18] MEDS: lisinopriL 20 MG TAB PO SCH ×2 (09:46→20:49)
[2023-06-18] MEDS: METOPROLOL SUCCINATE (ER) 25 MG TAB.ER.24H PO SCH (09:46)
[2023-06-18] MEDS: amLODIPine 10 MG TAB PO SCH (09:46)
[2023-06-18] MEDS: PHENYTOIN 50 MG CHEWABLE PO SCH ×2 (09:46→20:49)
--- NOTE | 2023-06-18 10:32 | P.HPIM ---
History of Present Illness This is a pleasant 87 years old female with multiple medical problems Presents because of worsening dyspnea over the last 2 days. About one week ago she's been evaluated for dehydration and she was encouraged to drink more. Patient denies chest pain or coughing. Patient feels more sleepy drowsy, poor energy than before with less appetite and increased frequency of urination but no dysuria No diarrhea or vomiting or abdominal pain. No headache dizziness, unilateral weakness or numbness. Patient feels generally weak. She is on 2 L oxygen at home. Her vitals looks stable, temperature slightly on the low site 97.3. Heart rate also slightly bradycardic 55-61. Patient currently on a beta saji. Labs were unremarkable including CBC, INR 1.2, unremarkable BMP and liver enzymes. And is -0.017. BNP is elevated 4980 Urine analysis is suspicious for infection, as per patient and son at bedside patient had UTI 2 about 5-6 months ago. Chest x-ray I reviewed and was suspicion for pulmonary vascular congestion and bilateral pleural effusion more on the right side. Review of Systems Review of systems CONSTITUTIONAL: No fever, no malaise, no fatigue. HEENT: No recent visual problems or hearing problems. Denied any sore throat. CARDIOVASCULAR: No orthopnea, PND, no palpitations, no syncope. -PULMONARY: No chest pain tenderness, no hemoptysis. GASTROINTESTINAL: No diarrhea, no nausea, no vomiting, no abdominal pain. Normoactive bowel sounds. NEUROLOGICAL: No headaches, no weakness, no numbness. HEMATOLOGICAL: Denies any bleeding or petechiae. GENITOURINARY: Denies any burning micturition, , or urgency. MUSCULOSKELETAL/RHEUMATOLOGICAL: Denies any joint pain, swelling, or any muscle pain. ENDOCRINE: Denies any polyuria or polydipsia. Past Medical History Past Medical History: Atrial Fibrillation, Cancer, COPD, Hypertension, Osteoarthritis (OA) Additional Past Medical History / Comment(s): emphysema, son & pt. unsure of atrial fib hx., cervical CA, LUNG CA 35 yrs. ago, takes anti-seizure med because of aneurysm hx., hx. 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 History of Any Multi-Drug Resistant Organisms: None Reported Past Surgical History: Cholecystectomy, Hysterectomy, Pacemaker Additional Past Surgical History / Comment(s): partial rt lung removed for CA. Brain Aneurysm removed x3 1989 Past Anesthesia/Blood Transfusion Reactions: No Reported Reaction Type of Cardiac Device: Biventricular Pacemaker Device Placement Date:: Feb 2020 Past Psychological History: No Psychological Hx Reported Smoking Status: Former smoker Past Alcohol Use History: None Reported Past Drug Use History: None Reported - Past Family History Mother Family Medical History: Diabetes Mellitus Father Additional Family Medical History / Comment(s): Hiatal hernia Medications and Allergies Home Medications Medication Instructions Recorded Confirmed Type Phenytoin [Dilantin Chew] 50 mg PO BID 02/13/20 06/17/23 History amLODIPine [Norvasc] 10 mg PO DAILY #90 tab 02/16/20 06/17/23 Rx Phenytoin Sodium Extended 100 mg PO BID 04/26/21 06/17/23 History [Dilantin] lisinopriL [Zestril] 10 mg PO BID 04/26/21 06/17/23 History Furosemide [Lasix] 20 mg PO DAILY 7 Days #7 tab 02/07/23 06/17/23 Rx Albuterol Inhaler [Ventolin Hfa 1 - 2 puff INHALATION RT-Q6H PRN 06/17/23 06/17/23 History Inhaler] Atorvastatin [Lipitor] 20 mg PO DAILY 06/17/23 06/17/23 History Ipratropium-Albuterol Nebulize 3 ml INHALATION RT-QID PRN 06/17/23 06/17/23 History [Duoneb 0.5 mg-3 mg/3 ml Soln] Metoprolol Succinate (ER) [Toprol 75 mg PO DAILY 06/17/23 06/17/23 History Xl] Allergies Allergy/AdvReac Type Severity Reaction Status Date / Time amoxicillin Allergy Unknown-per Verified 06/17/23 20:33 PCP clarithromycin [From Biaxin] Allergy Unknown-per Verified 06/17/23 20:33 PCP sinutab Allergy Unknown-per Uncoded 02/07/23 15:34 PCP Physical Exam Vitals: Vital Signs Temp Pulse Pulse Resp BP BP Pulse Ox 06/18/23 09:34 94 L 06/18/23 08:00 97.3 F L 62 16 160/73 94 L 06/18/23 02:00 96.9 F L 61 20 146/80 97 06/17/23 23:56 55 L 25 H 150/68 93 L 06/17/23 22:38 62 20 156/64 97 06/17/23 21:06 72 18 171/78 95 06/17/23 20:27 61 06/17/23 20:14 61 06/17/23 19:28 23 06/17/23 18:49 97.6 F 62 23 181/86 98 Intake and Output 06/17/23 06/18/23 06/18/23 22:59 06:59 14:59 Intake Total 10 118 Balance 10 118 Intake: IV 10 Invasive Line 1 10 Oral 118 Other: # Voids 1 Weight 65.317 kg GENERAL: The patient is alert and oriented x3, not in any acute distress. Well developed, well nourished. HEENT: Pupils are round and equally reacting to light. EOMI. No scleral icterus. No conjunctival pallor. Normocephalic, atraumatic. No pharyngeal erythema. No thyromegaly. CARDIOVASCULAR: S1 and S2 present. No murmurs, rubs, or gallops. --PULMONARY: Chest is clear to auscultation, no wheezing , bilateral basal crackles. Difficulty talking because of dyspnea ABDOMEN: Soft, nontender, nondistended, normoactive bowel sounds. No palpable organomegaly. MUSCULOSKELETAL: No joint swelling or deformity. -EXTREMITIES: No cyanosis, clubbing, . 1+ bilateral pitting leg edema. NEUROLOGICAL: Gross neurological examination did not reveal any focal deficits. SKIN: No rashes. no petechiae. Results CBC & Chem 7: 06/17/23 20:50 06/17/23 20:50 Labs: Abnormal Lab Results - Last 24 Hours (Table) 06/17/23 06/17/23 06/18/23 Range/Units 20:50 20:50 04:51 PT 13.0 H (10.0-12.5) sec INR 1.2 H (<1.2) Glucose 136 H (74-99) mg/dL Alkaline Phosphatase 153 H (38-126) U/L Urine Appearance Cloudy H (Clear) Ur Leukocyte Esterase Moderate H (Negative) Urine RBC 117 H (0-5) /hpf Urine WBC 7 H (0-5) /hpf Urine Bacteria Occasional H (None) /hpf Urine Mucus Rare H (None) /hpf Assessment and Plan Assessment: Acute urinary tract infection Acute on chronic congestive heart failure Pulmonary hypertension Dyspnea secondary to above Generalized weakness and deconditioning secondary to above Chronic hypoxic respiratory failure Plan: Continue with oral Lasix 40 mg twice daily (at home she was 20 mg twice a day), and fluid restriction 1200 per day Radiology and pulmonary consult Follow-up urine culture Start antibiotic, check bladder scan Labs and medication were reviewed.. Continue same treatment. Continue with symptomatic treatment. Resume home medication. Monitor labs and vitals. DVT and GI prophylaxis. Further recommendations as per clinical course of the patient DVT prophylaxis: Subcutaneous heparin GI Prophylaxis: Pepcid PT/OT: Pending Prognosis is guarded
[2023-06-18] MEDS: PHENYTOIN SODIUM EXTENDED 100 MG CAP PO SCH ×2 (10:43→20:49)
--- NOTE | 2023-06-18 11:00 | P.CRDCN ---
History of Present Illness History of present illness: HISTORY OF PRESENT ILLNESS: This is a 87-year-old female with a past medical history significant for permanent pacemaker implantation, hypertension, hyperlipidemia, congestive heart failure, and valvular heart disease. Patient follows in the office with Dr. Olivia. We have been asked to see the patient in consultation for congestive heart failure. Patient examined at the bedside. Patient presented to the hospital with a chief complaint of shortness of breath. Patient states she has been feeling short of breath for the past couple of days. She does report that she uses home oxygen. She denies chest pain or pressure. Patient's blood pressure elevated this morning with a reading of 160/73 * EKG reveals paced rhythm * Chest xray bibasilar infiltrates. Correlate for atelectasis. Small right and minimal left pleural effusion * Laboratory data: ProBNP 4980 * Current home cardiac medications include Lipitor 20 mg daily, lisinopril 10 mg twice a day, amlodipine 10 mg daily, metoprolol succinate 75 mg daily, and Lasix 20 mg daily * Most recent echocardiogram obtained in September 2022 revealed ejection fraction 55-60%, moderate MR, moderate to severe TR, and moderate pulmonary hypertension * Cardiac catheterization history: 1994 revealing normal coronary arteries REVIEW OF SYSTEMS: At the time of my exam: CONSTITUTIONAL: Denies fever or chills. HEENT: Denies blurred vision, vision changes, or eye pain. Denies hemoptysis CARDIOVASCULAR: Denies chest pain. Denies orthopnea. Denies PND. Denies palpitations RESPIRATORY: + shortness of breath. GASTROINTESTINAL: Denies abdominal pain. Denies nausea or vomiting. HEMATOLOGIC: Denies bleeding disorders. GENITOURINARY: Denies any blood in urine. SKIN: Denies pruitis. Denies rash. PHYSICAL EXAM: VITAL SIGNS: Reviewed. GENERAL: Well-developed in no acute distress. HEENT: Head is normocephalic. Pupils are equal, round. Sclerae anicteric. Mucous membranes of the mouth are moist. Neck supple. No JVD or thyromegaly LUNGS: Respirations even and unlabored. Lungs diminished at the bases HEART: Regular rate and rhythm. S1 and S2 heard. ABDOMEN: Soft. Nondistended. Nontender. EXTREMITIES: Normal range of motion. No clubbing or cyanosis. Peripheral pulses intact. No lower extremity edema NEUROLOGIC: Awake and alert. Oriented x 3. ASSESSMENT: Shortness of breath Moderate to severe pulmonary hypertension Congestive heart failure with preserved ejection fraction, currently not significantly fluid overloaded Normal coronary arteries History of permanent pacemaker implantation, [employer] Hypertension Hyperlipidemia Valvular heart disease PLAN: Obtain 2-D echo to assess cardiac structure and function Discontinue IV Lasix. Begin oral Lasix 40 mg twice a day Continue additional home cardiac medications Consult pulmonary for evaluation Further recommendations pending patient's course Nurse practitioner note has been reviewed by physician. Signing provider agrees with the documented findings, assessment, and plan of care. Past Medical History Past Medical History: Atrial Fibrillation, Cancer, COPD, Hypertension, Osteoart hritis (OA) Additional Past Medical History / Comment(s): emphysema, son & pt. unsure of atrial fib hx., cervical CA, LUNG CA 35 yrs. ago, takes anti-seizure med because of aneurysm hx., hx. 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 per son, uses oxygen @barely 2l prn per pt. History of Any Multi-Drug Resistant Organisms: None Reported Past Surgical History: Cholecystectomy, Hysterectomy, Pacemaker Additional Past Surgical History / Comment(s): partial rt lung removed for CA. Brain Aneurysm removed x3 1989 Past Anesthesia/Blood Transfusion Reactions: No Reported Reaction Type of Cardiac Device: Biventricular Pacemaker Device Placement Date:: Feb 2020 Past Psychological History: No Psychological Hx Reported Smoking Status: Former smoker Past Alcohol Use History: None Reported Past Drug Use History: None Reported - Past Family History Mother Family Medical History: Diabetes Mellitus Father Additional Family Medical History / Comment(s): Hiatal hernia Medications and Allergies Home Medications Medication Instructions Recorded Confirmed Type Phenytoin [Dilantin Chew] 50 mg PO BID 02/13/20 06/17/23 History amLODIPine [Norvasc] 10 mg PO DAILY #90 tab 02/16/20 06/17/23 Rx Phenytoin Sodium Extended 100 mg PO BID 04/26/21 06/17/23 History [Dilantin] lisinopriL [Zestril] 10 mg PO BID 04/26/21 06/17/23 History Furosemide [Lasix] 20 mg PO DAILY 7 Days #7 tab 02/07/23 06/17/23 Rx Albuterol Inhaler [Ventolin Hfa 1 - 2 puff INHALATION RT-Q6H PRN 06/17/23 06/17/23 History Inhaler] Atorvastatin [Lipitor] 20 mg PO DAILY 06/17/23 06/17/23 History Ipratropium-Albuterol Nebulize 3 ml INHALATION RT-QID PRN 06/17/23 06/17/23 History [Duoneb 0.5 mg-3 mg/3 ml Soln] Metoprolol Succinate (ER) [Toprol 75 mg PO DAILY 06/17/23 06/17/23 History Xl] Allergies Allergy/AdvReac Type Severity Reaction Status Date / Time amoxicillin Allergy Unknown-per Verified 06/17/23 20:33 PCP clarithromycin [From Biaxin] Allergy Unknown-per Verified 06/17/23 20:33 PCP sinutab Allergy Unknown-per Uncoded 02/07/23 15:34 PCP Physical Exam Vitals: Vital Signs Temp Pulse Pulse Resp BP BP Pulse Ox 06/18/23 09:34 94 L 06/18/23 08:00 97.3 F L 62 16 160/73 94 L 06/18/23 02:00 96.9 F L 61 20 146/80 97 06/17/23 23:56 55 L 25 H 150/68 93 L 06/17/23 22:38 62 20 156/64 97 06/17/23 21:06 72 18 171/78 95 06/17/23 20:27 61 06/17/23 20:14 61 06/17/23 19:28 23 06/17/23 18:49 97.6 F 62 23 181/86 98 Intake and Output 06/17/23 06/18/23 06/18/23 22:59 06:59 14:59 Intake Total 10 118 Balance 10 118 Intake: IV 10 Invasive Line 1 10 Oral 118 Other: # Voids 1 Weight 65.317 kg Results 06/17/23 20:50 06/17/23 20:50 Cardiac Enzymes 06/17/23 06/17/23 Range/Units 20:50 20:50 AST 32 (14-36) U/L Troponin I 0.017 (0.000-0.034) ng/mL Coagulation 06/17/23 Range/Units 20:50 PT 13.0 H (10.0-12.5) sec APTT 25.1 (22.0-30.0) sec CBC 06/17/23 Range/Units 20:50 WBC 8.2 (3.8-10.6) k/uL RBC 3.90 (3.80-5.40) m/uL Hgb 12.4 (11.4-16.0) gm/dL Hct 37.1 (34.0-46.0) % Plt Count 158 (150-450) k/uL Comprehensive Metabolic Panel 06/17/23 Range/Units 20:50 Sodium 140 (137-145) mmol/L Potassium 4.6 (3.5-5.1) mmol/L Chloride 107 (98-107) mmol/L Carbon Dioxide 22 (22-30) mmol/L BUN 17 (7-17) mg/dL Creatinine 0.73 (0.52-1.04) mg/dL Glucose 136 H (74-99) mg/dL Calcium 8.6 (8.4-10.2) mg/dL AST 32 (14-36) U/L ALT 24 (4-34) U/L Alkaline Phosphatase 153 H (38-126) U/L Total Protein 6.7 (6.3-8.2) g/dL Albumin 3.8 (3.5-5.0) g/dL Current Medications Generic Name Dose Route Start Last Admin Trade Name Freq PRN Reason Stop Dose Admin Albuterol/Ipratropium 3 ml 06/18/23 00:35 Ipratropium-Albuterol 3 Ml Neb INHALATION RT-QID PRN Shortness Of Breath Amlodipine Besylate 10 mg 06/18/23 09:00 06/18/23 09:46 Amlodipine 10 Mg Tab PO 10 mg DAILY NICKOLAS Administration Atorvastatin Calcium 20 mg 06/18/23 09:00 06/18/23 09:46 Atorvastatin 20 Mg Tab PO 20 mg DAILY NICKOLAS Administration Cephalexin 500 mg 06/18/23 10:30 Cephalexin 500 Mg Cap PO BID [facility] Protocol Famotidine 20 mg 06/18/23 21:00 Famotidine 20 Mg/2 Ml Vial IV Q12HR NICKOLAS Furosemide 40 mg 06/18/23 09:00 06/18/23 09:46 Furosemide 40 Mg Tab PO 40 mg BID@0900,1600 NICKOLAS Administration Heparin Sodium (Porcine) 5,000 unit 06/18/23 21:00 Heparin Sodium,Porcine 5,000 Unit/Ml 1 Ml Vial SQ Q12HR NICKOLAS Lisinopril 20 mg 06/18/23 09:00 06/18/23 09:46 Lisinopril 20 Mg Tab PO 20 mg BID NICKOLAS Administration Metoprolol Succinate 75 mg 06/18/23 09:00 06/18/23 09:46 Metoprolol Succinate (Er) 25 Mg Tab.Er.24h PO 75 mg DAILY NICKOLAS Administration Phenytoin Sodium 100 mg 06/18/23 09:00 Phenytoin Sodium Extended 100 Mg Cap PO BID NICKOLAS Phenytoin Sodium 50 mg 06/18/23 09:00 06/18/23 09:46 Phenytoin 50 Mg Chewable PO 50 mg BID NICKOLAS Administration Sodium Chloride 10 ml 06/18/23 09:00 06/18/23 09:47 Sodium Chloride 0.9% Flush 10 Ml Syringe IV 10 ml BID NICKOLAS Administration Intake and Output 06/17/23 06/18/23 06/18/23 22:59 06:59 14:59 Intake Total 10 118 Balance 10 118 Intake: IV 10 Invasive Line 1 10 Oral 118 Other: # Voids 1 Weight 65.317 kg 06/17/23 20:50 06/17/23 20:50
[2023-06-18] MEDS: CEPHALEXIN 500 MG CAP PO SCH ×2 (11:23→20:48)
[2023-06-18] MEDS: IPRATROPIUM-ALBUTEROL 3 ML NEB INHALATION PRN ×2 (11:48→15:41)
--- NOTE | 2023-06-18 13:40 | P.CNPUL ---
History of Present Illness Consult date: 06/18/23 Reason for consult: dyspnea History of present illness: 87-year-old. Patient being seen for shortness of breath. She is known to have COPD oxygen dependent and the patient also has CHF/valvular heart disease with moderate MR and moderate to severe tricuspid regurgitation and moderate degree of portal hypertension. The patient has 11 to ejection fraction of 55-60%. Previous cardiac catheterization from 1994 was showing normal coronaries. The patient was getting progressively more short of breath. No chest pain. Minimal sputum production. No hemoptysis. No pleurisy. Extremity. For that reason, the patient came into the patient was hospitalized for further treatment. The patient was found to have an elevated proBNP level of 4980. Chest x-ray showed cardiomegaly, vascular congestion consistent with CHF. She is currently on 2 L of oxygen by nasal cannula. Based on oxygen requirement is also 2 L. No calf pain or swelling. Rest of the labs are all within normal limits. Over 19 was negative and the rest of the viral panel was negative. Review of Systems Constitutional: Reports fatigue, Reports poor appetite Eyes: denies as per HPI, denies blurred vision, denies bulging eye, denies decreased vision, denies diplopia, denies discharge, denies dry eye, denies irritation, denies itching, denies pain, denies photophobia, denies loss of peripheral vision, denies loss of vision, denies tunnel vision/blind spots Ears: deny: decreased hearing, ear discharge, earache, tinnitus Ears, nose, mouth and throat: Reports as per HPI Breasts: absent: as per HPI, change in shape, gynecomastia, masses, nipple discharge, pain, skin changes, swelling Breasts: Reports as per HPI Cardiovascular: Reports as per HPI, Reports decreased exercise tolerance, Reports dyspnea on exertion, Reports leg edema, Reports shortness of breath Respiratory: Reports dyspnea, Reports home oxygen Gastrointestinal: Reports as per HPI Genitourinary: Reports as per HPI Menstruation: Reports as per HPI Musculoskeletal: Reports as per HPI Musculoskeletal: bilateral: ankle swelling, absent: ankle pain, ankle stiffness Integumentary: Reports as per HPI Neurological: Reports as per HPI Psychiatric: Reports as per HPI Endocrine: Reports as per HPI Hematologic/Lymphatic: Reports as per HPI Allergic/Immunologic: Reports as per HPI Past Medical History Past Medical History: Atrial Fibrillation, Cancer, COPD, Hypertension, Osteoarthritis (OA) Additional Past Medical History / Comment(s): emphysema, son & pt. unsure of atrial fib hx., cervical CA, LUNG CA 35 yrs. ago, takes anti-seizure med because of aneurysm hx., hx. 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 per son, uses oxygen @barely 2l prn per pt. History of Any Multi-Drug Resistant Organisms: None Reported Past Surgical History: Cholecystectomy, Hysterectomy, Pacemaker Additional Past Surgical History / Comment(s): partial rt lung removed for CA. Brain Aneurysm removed x3 1989 Past Anesthesia/Blood Transfusion Reactions: No Reported Reaction Type of Cardiac Device: Biventricular Pacemaker Device Placement Date:: Feb 2020 Past Psychological History: No Psychological Hx Reported Smoking Status: Former smoker Past Alcohol Use History: None Reported Past Drug Use History: None Reported - Past Family History Mother Family Medical History: Diabetes Mellitus Father Additional Family Medical History / Comment(s): Hiatal hernia Medications and Allergies Home Medications Medication Instructions Recorded Confirmed Type Phenytoin [Dilantin Chew] 50 mg PO BID 02/13/20 06/17/23 History amLODIPine [Norvasc] 10 mg PO DAILY #90 tab 02/16/20 06/17/23 Rx Phenytoin Sodium Extended 100 mg PO BID 04/26/21 06/17/23 History [Dilantin] lisinopriL [Zestril] 10 mg PO BID 04/26/21 06/17/23 History Furosemide [Lasix] 20 mg PO DAILY 7 Days #7 tab 02/07/23 06/17/23 Rx Albuterol Inhaler [Ventolin Hfa 1 - 2 puff INHALATION RT-Q6H PRN 06/17/23 06/17/23 History Inhaler] Atorvastatin [Lipitor] 20 mg PO DAILY 06/17/23 06/17/23 History Ipratropium-Albuterol Nebulize 3 ml INHALATION RT-QID PRN 06/17/23 06/17/23 History [Duoneb 0.5 mg-3 mg/3 ml Soln] Metoprolol Succinate (ER) [Toprol 75 mg PO DAILY 06/17/23 06/17/23 History Xl] Allergies Allergy/AdvReac Type Severity Reaction Status Date / Time amoxicillin Allergy Unknown-per Verified 06/17/23 20:33 PCP clarithromycin [From Biaxin] Allergy Unknown-per Verified 06/17/23 20:33 PCP sinutab Allergy Unknown-per Uncoded 02/07/23 15:34 PCP Physical Exam Vitals: Vital Signs Temp Pulse Pulse Resp BP BP Pulse Ox 06/18/23 12:03 65 06/18/23 11:48 65 06/18/23 09:34 94 L 06/18/23 08:00 97.3 F L 62 16 160/73 94 L 06/18/23 02:00 96.9 F L 61 20 146/80 97 06/17/23 23:56 55 L 25 H 150/68 93 L 06/17/23 22:38 62 20 156/64 97 06/17/23 21:06 72 18 171/78 95 06/17/23 20:27 61 06/17/23 20:14 61 06/17/23 19:28 23 06/17/23 18:49 97.6 F 62 23 181/86 98 Intake and Output 06/17/23 06/18/23 06/18/23 22:59 06:59 14:59 Intake Total 10 118 Output Total 59 Balance 10 59 Intake: IV 10 Invasive Line 1 10 Oral 118 Output: Post Void Residual 59 Other: # Voids 1 Weight 65.317 kg 65.2 kg 65.2 kg GENERAL: The patient is alert and oriented x3, not in any acute distress. Well developed, well nourished. The patient is comfortable on 2 L of oxygen by nasal cannula HEENT: Pupils are round and equally reacting to light. EOMI. No scleral icterus. No conjunctival pallor. Normocephalic, atraumatic. No pharyngeal erythema. No thyromegaly. CARDIOVASCULAR: S1 and S2 present. No murmurs, rubs, or gallops. The patient has a pacemaker pocket over the left anterior chest and the cardiac rhythm is paced --PULMONARY: Chest is clear to auscultation, no wheezing , bilateral basal crackles. Able to complete full sentences and the patient has limited contact in lung bases bilaterally. ABDOMEN: Soft, nontender, nondistended, normoactive bowel sounds. No palpable organomegaly. MUSCULOSKELETAL: No joint swelling or deformity. -EXTREMITIES: No cyanosis, clubbing, . 1+ bilateral pitting leg edema. NEUROLOGICAL: Gross neurological examination did not reveal any focal deficits. SKIN: No rashes. no petechiae. Results - Laboratory Findings CBC and BMP: 06/17/23 20:50 06/17/23 20:50 ABG WBC 8.2 k/uL (3.8-10.6) 06/17/23 20:50 RBC 3.90 m/uL (3.80-5.40) 06/17/23 20:50 Hgb 12.4 gm/dL (11.4-16.0) 06/17/23 20:50 Hct 37.1 % (34.0-46.0) 06/17/23 20:50 MCV 95.1 fL (80.0-100.0) 06/17/23 20:50 MCH 31.8 pg (25.0-35.0) 06/17/23 20:50 MCHC 33.5 g/dL (31.0-37.0) 06/17/23 20:50 RDW 14.2 % (11.5-15.5) 06/17/23 20:50 Plt Count 158 k/uL (150-450) 06/17/23 20:50 MPV 9.3 06/17/23 20:50 Neutrophils % 76 % 06/17/23 20:50 Lymphocytes % 14 % 06/17/23 20:50 Monocytes % 7 % 06/17/23 20:50 Eosinophils % 0 % 06/17/23 20:50 Basophils % 0 % 06/17/23 20:50 Neutrophils # 6.2 k/uL (1.3-7.7) 06/17/23 20:50 Lymphocytes # 1.2 k/uL (1.0-4.8) 06/17/23 20:50 Monocytes # 0.6 k/uL (0-1.0) 06/17/23 20:50 Eosinophils # 0.0 k/uL (0-0.7) 06/17/23 20:50 Basophils # 0.0 k/uL (0-0.2) 06/17/23 20:50 Hypochromasia Slight 06/17/23 20:50 PT 13.0 sec (10.0-12.5) H 06/17/23 20:50 INR 1.2 (<1.2) H 06/17/23 20:50 APTT 25.1 sec (22.0-30.0) 06/17/23 20:50 Sodium 140 mmol/L (137-145) 06/17/23 20:50 Potassium 4.6 mmol/L (3.5-5.1) 06/17/23 20:50 Chloride 107 mmol/L (98-107) 06/17/23 20:50 Carbon Dioxide 22 mmol/L (22-30) 06/17/23 20:50 Anion Gap 11 mmol/L 06/17/23 20:50 BUN 17 mg/dL (7-17) 06/17/23 20:50 Creatinine 0.73 mg/dL (0.52-1.04) 06/17/23 20:50 Est GFR (CKD-EPI)AfAm 85 (>60 ml/min/1.73 sqM) 06/17/23 20:50 Est GFR (CKD-EPI)NonAf 73 (>60 ml/min/1.73 sqM) 06/17/23 20:50 Glucose 136 mg/dL (74-99) H 06/17/23 20:50 Plasma Lactic Acid Cesar 1.6 mmol/L (0.7-2.0) 06/17/23 20:50 Calcium 8.6 mg/dL (8.4-10.2) 06/17/23 20:50 Total Bilirubin 0.6 mg/dL (0.2-1.3) 06/17/23 20:50 AST 32 U/L (14-36) 06/17/23 20:50 ALT 24 U/L (4-34) 06/17/23 20:50 Alkaline Phosphatase 153 U/L (38-126) H 06/17/23 20:50 Troponin I 0.017 ng/mL (0.000-0.034) 06/17/23 20:50 NT-Pro-B Natriuret Pep 4980 pg/mL 06/17/23 20:50 Total Protein 6.7 g/dL (6.3-8.2) 06/17/23 20:50 Albumin 3.8 g/dL (3.5-5.0) 06/17/23 20:50 Urine Color Colorless 06/18/23 04:51 Urine Appearance Cloudy (Clear) H 06/18/23 04:51 Urine pH 5.5 (5.0-8.0) 06/18/23 04:51 Ur Specific [place] 1.008 (1.001-1.035) 06/18/23 04:51 Urine Protein Negative (Negative) 06/18/23 04:51 Urine Glucose (UA) Negative (Negative) 06/18/23 04:51 Urine Ketones Negative (Negative) 06/18/23 04:51 Urine Blood Negative (Negative) 06/18/23 04:51 Urine Nitrite Negative (Negative) 06/18/23 04:51 Urine Bilirubin Negative (Negative) 06/18/23 04:51 Urine Urobilinogen <2.0 mg/dL (<2.0) 06/18/23 04:51 Ur Leukocyte Esterase Moderate (Negative) H 06/18/23 04:51 Urine RBC 117 /hpf (0-5) H 06/18/23 04:51 Urine WBC 7 /hpf (0-5) H 06/18/23 04:51 Ur Squamous Epith Cells 1 /hpf (0-4) 06/18/23 04:51 Urine Bacteria Occasional /hpf (None) H 06/18/23 04:51 Urine Mucus Rare /hpf (None) H 06/18/23 04:51 Influenza Type A (PCR) Not Detected (Not Detectd) 06/17/23 20:50 Influenza Type B (PCR) Not Detected (Not Detectd) 06/17/23 20:50 RSV (PCR) Not Detected (Not Detectd) 06/17/23 20:50 SARS-CoV-2 (PCR) Not Detected (Not Detectd) 06/17/23 20:50 PT/INR, D-dimer PT 13.0 sec (10.0-12.5) H 06/17/23 20:50 INR 1.2 (<1.2) H 06/17/23 20:50 Abnormal lab findings: Abnormal Labs 06/17/23 06/17/23 06/18/23 20:50 20:50 04:51 PT 13.0 H INR 1.2 H Glucose 136 H Alkaline Phosphatase 153 H Urine Appearance Cloudy H Ur Leukocyte Esterase Moderate H Urine RBC 117 H Urine WBC 7 H Urine Bacteria Occasional H Urine Mucus Rare H - Diagnostic Findings Chest x-ray: image reviewed Assessment and Plan Plan: Acute on chronic dyspnea, multifactorial, essentially related to CHF exacerbation in addition to a component of COPD Acute on chronic hypoxic respiratory failure, currently on oxygen 2 L/m nasal cannula CHF with preserved LV function, coronaries have been within normal limits based on a previous cardiac catheterization 1994. Valvular heart disease with moderate MR, moderate to severe TR and secondary to pulmonary hypertension History of atrial fibrillation History of permanent pacemaker insertion Hypertension History of cervical cancer History of lung cancer. 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 Plan Clinically stable on 2 L of oxygen by nasal cannula Continue Nic hunter Keep the patient on Lasix 40 mg twice a day Operative fluid balance and urine output Resume all medications We'll continue to follow
[2023-06-18 16:49] VITALS: BMI 23.1
--- NOTE | 2023-06-18 17:41 | CA ---
Transthoracic Echo Report Name: Medina Eduardo Age: 87 Gender: F : 1935 Exam Date: 06/18/2023 11:01 Exam Location: [facility] Ht (in): 66 Wt (lb): 144 Ordering Physician: Patricia San Attending/Referring Phys: [id number], [place] [employer] Lia Helms RDCS Procedure CPT: Indications: LV function, CHF Cardiac Hx: Technical Quality: Good Contrast 1: Total Dose (mL): Contrast 2: Total Dose (mL): MEASUREMENTS (Male / Female) Normal Values 2D ECHO LV Diastolic Diameter PLAX 4.0 cm 4.2 - 5.9 / 3.9 - 5.3 cm LV Systolic Diameter PLAX 2.6 cm IVS Diastolic Thickness 1.0 cm 0.6 - 1.0 / 0.6 - 0.9 cm LVPW Diastolic Thickness 1.1 cm 0.6 - 1.0 / 0.6 - 0.9 cm LV Relative Wall Thickness 0.5 RV Internal Dim ED PLAX 3.0 cm LA Systolic Diameter LX 4.1 cm 3.0 - 4.0 / 2.7 - 3.8 cm LV Diastolic Volume MOD 4C 47.0 cm??? LV Systolic Volume MOD 4C 13.5 cm??? LV Ejection Fraction MOD 4C 71.2 % LV Cardiac Index MOD 4C 1206.8 cm???/min???m??? LV Diastolic Length 4C 6.2 cm LV Systolic Length 4C 4.7 cm LV Diastolic Volume MOD 2C 57.5 cm??? LV Systolic Volume MOD 2C 26.3 cm??? LV Ejection Fraction MOD 2C 54.3 % LV Cardiac Index MOD 2C 1124.4 cm???/min???m??? LV Diastolic Length 2C 6.2 cm LV Systolic Length 2C 5.2 cm M-MODE Aortic Root Diameter MM 3.2 cm DOPPLER AV Peak Velocity 143.3 cm/s AV Peak Gradient 8.2 mmHg MV Peak Velocity 212.7 cm/s MV Peak Gradient 18.1 mmHg MV Mean Velocity 76.2 cm/s MV Mean Gradient 3.5 mmHg MV Velocity Time Integral 45.3 cm Mitral E Point Velocity 170.0 cm/s Mitral A Point Velocity 45.4 cm/s Mitral E to A Ratio 3.7 MV Deceleration Time 281.6 ms TR Peak Velocity 330.8 cm/s TR Peak Gradient 43.8 mmHg Right Ventricular Systolic Press 58.0 mmHg FINDINGS Left Ventricle Left ventricular ejection fraction is estimated at 60-65 %. Left ventricular cavity size normal. Mildly increased posterior wall thickness. Right Ventricle Normal right ventricular size. Severe pulmonary hypertension. Right ventricular systolic pressure estimated at 58 mm hg. Right Atrium Normal right atrial size. Left Atrium Mildly increased left atrial diameter. Mitral Valve Mild thickening/calcification of the anterior mitral valve leaflet. Mild thickening/calcification of the posterior mitral valve leaflet. Mild mitral annular calcification. Mild mitral regurgitation. Mild mitral stenosis with mean gradient of 4 mmHg Aortic Valve Trileaflet aortic valve. Thickened aortic valve without stenosis. Tricuspid Valve Structurally normal tricuspid valve. Moderate tricuspid regurgitation. Pulmonic Valve Mild pulmonic regurgitation. Pericardium Small pericardial effusion by posterior wall Aorta Normal size aortic root and proximal ascending aorta. CONCLUSIONS Preserved LV size and systolic function Elevated RVSP with a dilated IVC with minimal respiratory variation Previewed by: Dr. Reed Toribio MD (Electronically Signed) Final Date: 18 June 2023 17:40
[2023-06-18] MEDS: HEPARIN SODIUM,PORCINE 5,000 UNIT/ML 1 ML VIAL SQ SCH (20:48)
[2023-06-18] MEDS: FAMOTIDINE 20 MG/2 ML VIAL IV SCH (20:49)
[2023-06-19] MEDS: IPRATROPIUM-ALBUTEROL 3 ML NEB INHALATION PRN ×2 (08:55→11:58)
[2023-06-19 09:00] LABS: Basophils # (A) 0.03 X 10*3/uL (0.00-0.10); Basophils % (A) 0.4 %; Eosinophils # (A) 0.17 X 10*3/uL (0.04-0.35); Eosinophils % (A) 2.2 %; HCT 33.1 % (37.2-46.3); HGB 10.6 g/dL (12.0-15.0); Lymphocytes # (A) 1.57 X 10*3/uL (0.90-5.00); Lymphocytes % (A) 20.4 %; MCH 30.5 pg (27.0-32.0); MCV 95.4 FL (80.0-97.0); Mean Platelet Volume 11.5 FL (9.5-12.2); Monocytes # (A) 1.08 X 10*3/uL (0.20-1.00); NRBC Per 100 WBC 0 X 10*3/uL (0.00-0.01); Neutrophils # (A) 4.82 X 10*3/uL (1.80-7.70); Neutrophils % (A) 62.6 %; Platelet Count 143 X 10*3/uL (140-440); RBC 3.47 X 10*6/uL (4.10-5.20); RDW 14.6 % (11.5-14.5)
[2023-06-19] MEDS: ATORVASTATIN 20 MG TAB PO SCH (09:09)
[2023-06-19] MEDS: amLODIPine 10 MG TAB PO SCH (09:09)
[2023-06-19] MEDS: FAMOTIDINE 20 MG/2 ML VIAL IV SCH (09:09)
[2023-06-19] MEDS: PHENYTOIN SODIUM EXTENDED 100 MG CAP PO SCH (09:09)
[2023-06-19] MEDS: HEPARIN SODIUM,PORCINE 5,000 UNIT/ML 1 ML VIAL SQ SCH (09:10)
[2023-06-19] MEDS: METOPROLOL SUCCINATE (ER) 25 MG TAB.ER.24H PO SCH (09:10)
[2023-06-19] MEDS: FUROSEMIDE 40 MG TAB PO SCH (09:10)
[2023-06-19] MEDS: PHENYTOIN 50 MG CHEWABLE PO SCH (09:10)
[2023-06-19] MEDS: CEPHALEXIN 500 MG CAP PO SCH (09:10)
[2023-06-19] MEDS: lisinopriL 20 MG TAB PO SCH (09:10)
[2023-06-19 10:42] LABS: BUN/Creat Ratio 19.64 Ratio (12.00-20.00); Blood Urea Nitrogen 21.6 mg/dL (9.0-27.0); Calcium 8.5 mg/dL (8.7-10.3); Carbon Dioxide 28.5 mmol/L (21.6-31.8); Chloride 102 mmol/L (96-109); Glucose 130 mg/dL (70-110); Sodium 139 mmol/L (135-145)
--- NOTE | 2023-06-19 11:00 | P.PN ---
Subjective HISTORY OF PRESENT ILLNESS: This is a 87-year-old female with a past medical history significant for permanent pacemaker implantation, hypertension, hyperlipidemia, congestive heart failure, and valvular heart disease. Patient follows in the office with Dr. lOivia. We have been asked to see the patient in consultation for congestive heart failure. Patient examined at the bedside. Patient presented to the hospital with a chief complaint of shortness of breath. Patient states she has been feeling short of breath for the past couple of days. She does report that she uses home oxygen. She denies chest pain or pressure. Patient's blood pressure elevated this morning with a reading of 160/73 * EKG reveals paced rhythm * Chest xray bibasilar infiltrates. Correlate for atelectasis. Small right and minimal left pleural effusion * Laboratory data: ProBNP 4980 * Current home cardiac medications include Lipitor 20 mg daily, lisinopril 10 mg twice a day, amlodipine 10 mg daily, metoprolol succinate 75 mg daily, and La six 20 mg daily * Most recent echocardiogram obtained in September 2022 revealed ejection fraction 55-60%, moderate MR, moderate to severe TR, and moderate pulmonary hypertension * Cardiac catheterization history: 1994 revealing normal coronary arteries 06/19/2023 Patient examined this morning at the bedside. Patient denies chest pain or pressure. She reports improvement in her breathing today compared to yesterday. 2-D echo obtained revealing ejection fraction 60-65%, severe pulmonary hypertension, moderate tricuspid regurgitation, mild pulmonic regurgitation. PHYSICAL EXAM: VITAL SIGNS: Reviewed. GENERAL: Well-developed in no acute distress. HEENT: Head is normocephalic. Pupils are equal, round. Sclerae anicteric. Mucous membranes of the mouth are moist. Neck supple. No JVD or thyromegaly LUNGS: Respirations even and unlabored. Lungs diminished at the bases HEART: Regular rate and rhythm. S1 and S2 heard. ABDOMEN: Soft. Nondistended. Nontender. EXTREMITIES: Normal range of motion. No clubbing or cyanosis. Peripheral pulses intact. No lower extremity edema NEUROLOGIC: Awake and alert. Oriented x 3. ASSESSMENT: Shortness of breath Moderate to severe pulmonary hypertension Congestive heart failure with preserved ejection fraction, currently not significantly fluid overloaded Normal coronary arteries History of permanent pacemaker implantation, [employer] Hypertension Hyperlipidemia Valvular heart disease PLAN: Continue current cardiac medications Patient is currently stable from a cardiac perspective with no further inpatient recommendations We will sign off. Please reconsult if needed. Nurse practitioner note has been reviewed by physician. Signing provider agrees with the documented findings, assessment, and plan of care. Objective - Vital Signs Vital signs: Vital Signs Temp 98.4 F 06/19/23 07:50 Pulse 80 06/19/23 09:10 Resp 15 06/19/23 07:50 BP 129/68 06/19/23 07:50 Pulse Ox 93 L 06/19/23 08:56 FiO2 Intake & Output 06/18/23 06/19/23 06/19/23 18:59 06:59 18:59 Intake Total 236 Output Total 59 Balance 177 Weight 65.2 kg Intake: Oral 236 Output: Post Void Residual 59 Other: Voiding Method Toilet - Labs CBC & Chem 7: 06/19/23 06:14 06/19/23 06:14 Labs: Abnormal Lab Results - Last 24 Hours (Table) 06/19/23 06/19/23 Range/Units 06:14 06:14 RBC 3.47 L (4.10-5.20) X 10*6/uL Hgb 10.6 L (12.0-15.0) g/dL Hct 33.1 L (37.2-46.3) % RDW 14.6 H (11.5-14.5) % Monocytes # 1.08 H (0.20-1.00) X 10*3/uL Est GFR (CKD-EPI) 48 L (>=60) Glucose 130 H (70-110) mg/dL Calcium 8.5 L (8.7-10.3) mg/dL
--- NOTE | 2023-06-19 14:04 | P.PN ---
Subjective Progress Note Date: 06/19/23 87-year-old. Patient being seen for shortness of breath. She is known to have COPD oxygen dependent and the patient also has CHF/valvular heart disease with moderate MR and moderate to severe tricuspid regurgitation and moderate degree of portal hypertension. The patient has 11 to ejection fraction of 55-60%. Previous cardiac catheterization from 1994 was showing normal coronaries. The patient was getting progressively more short of breath. No chest pain. Minimal sputum production. No hemoptysis. No pleurisy. Extremity. For that reason, the patient came into the patient was hospitalized for further treatment. The patient was found to have an elevated proBNP level of 4980. Chest x-ray showed cardiomegaly, vascular congestion consistent with CHF. She is currently on 2 L of oxygen by nasal cannula. Based on oxygen requirement is also 2 L. No calf pain or swelling. Rest of the labs are all within normal limits. Over 19 was negative and the rest of the viral panel was negative. On today's evaluation of 06/19/2023, the patient is less short of breath. The echo of the heart was completed and the patient was found to have a relatively preserved LV function. The patient ejection fraction was 6065%. Mild increased posterior wall thickness. RV was normal and sized. The patient severe pulmonary hypertension. The pressure was estimated to be at 58. In terms of other function, the patient had mild mitral annular calcification and regurgitation. There was also mild mitral stenosis with a mean gradient of 4. The labs showed a sodium level of 139, potassium level of 4.0, BUN is 20 with a creatinine of 1.1. The discussions that 7.7 with a hemoglobin of 10.6. Tropon ins are negative. The patient remains on oral Lasix. Objective - Vital Signs Vital signs: Vital Signs Temp 98.4 F 06/19/23 07:50 Pulse 80 06/19/23 09:10 Resp 15 06/19/23 07:50 BP 129/68 06/19/23 07:50 Pulse Ox 93 L 06/19/23 08:56 FiO2 Intake & Output 06/18/23 06/19/23 06/19/23 18:59 06:59 18:59 Intake Total 236 413 Output Total 59 Balance 177 413 Weight 65.2 kg Intake: Oral 236 413 Output: Post Void Residual 59 Other: Voiding Method Toilet - Exam GENERAL: The patient is alert and oriented x3, not in any acute distress. Well developed, well nourished. The patient is comfortable on 2 L of oxygen by nasal cannula HEENT: Pupils are round and equally reacting to light. EOMI. No scleral icterus. No conjunctival pallor. Normocephalic, atraumatic. No pharyngeal erythema. No thyromegaly. CARDIOVASCULAR: S1 and S2 present. No murmurs, rubs, or gallops. The patient has a pacemaker pocket over the left anterior chest and the cardiac rhythm is paced --PULMONARY: Chest is clear to auscultation, no wheezing , bilateral basal crackles. Able to complete full sentences and the patient has limited contact in lung bases bilaterally. ABDOMEN: Soft, nontender, nondistended, normoactive bowel sounds. No palpable organomegaly. MUSCULOSKELETAL: No joint swelling or deformity. -EXTREMITIES: No cyanosis, clubbing, . 1+ bilateral pitting leg edema. NEUROLOGICAL: Gross neurological examination did not reveal any focal deficits. SKIN: No rashes. no petechiae. - Labs CBC & Chem 7: 06/19/23 06:14 06/19/23 06:14 Labs: Abnormal Lab Results - Last 24 Hours (Table) 06/19/23 06/19/23 Range/Units 06:14 06:14 RBC 3.47 L (4.10-5.20) X 10*6/uL Hgb 10.6 L (12.0-15.0) g/dL Hct 33.1 L (37.2-46.3) % RDW 14.6 H (11.5-14.5) % Monocytes # 1.08 H (0.20-1.00) X 10*3/uL Est GFR (CKD-EPI) 48 L (>=60) Glucose 130 H (70-110) mg/dL Calcium 8.5 L (8.7-10.3) mg/dL Assessment and Plan Plan: Acute on chronic dyspnea, multifactorial, essentially related to CHF exacerbation in addition to a component of COPD , clinically improving and the patient is currently on oral diuretics with Lasix 40 mg by mouth twice a day. The patient is clinically improving Acute on chronic hypoxic respiratory failure, currently on oxygen 2 L/m nasal cannula CHF with preserved LV function, coronaries have been within normal limits based on a previous cardiac catheterization 1994. Valvular heart disease with moderate MR, moderate to severe TR and secondary to pulmonary hypertension History of atrial fibrillation History of permanent pacemaker insertion Hypertension History of cervical cancer History of lung cancer. 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 Plan Clinically stable on 2 L of oxygen by nasal cannula Continue DuoNeb updrafts Keep the patient on Lasix 40 mg twice a day Echo was noted Monitor fluid balance and urine output Renal function is stable Resume all medications We'll continue to follow
[2023-06-19 15:45] VITALS: BP 111/66; PULSE 66; RESP 18; TEMP 97.9
[2023-06-20] MEDS ORDERED: FAMOTIDINE 20 MG/2 ML VIAL IV SCH (09:00)
--- NOTE | 2023-06-20 15:57 | P.DS ---
Providers Date of admission: 06/18/23 00:30 Attending physician: Wiliam Valdes MD Consults: 06/18/23 08:18 Consult Physician Routine Consulting Provider: Rigoberto Plunkett Consult Reason/Comments: SOB, pulmonary hypertension Do you want consulting provider notified?: Yes Primary care physician: [place] Loco Hospital Course: Final Diagnosis Acute on chronic congestive heart failure, diastolic dysfunction Pulmonary hypertension and valvular heart disease Dyspnea secondary to above Generalized weakness and deconditioning secondary to above HX of COPD and Chronic hypoxic respiratory failure oxygen dependent at 2L nasal cannula Questionable history of atrial fibrillation Hx of GI bleed Hx of brain aneurysm with surgical repair maintained on antiseizure medication prophylactically History of lung cancer and resection Discharge Disposition Patient is stable for discharge home. Recommending to follow up with cardiology and pulmonary on discharge. Patient will be discharging home to her other daughters house with increased supervision and care. She continues on oxygen support and will receive portable oxygen prior to discharge. Recommending to repeat labs in 2 to 3 days. Hospital Course This is a pleasant 87 years old female with history of chronic hypoxic respiratory failure, COPD, Presents because of worsening dyspnea over the last 2 days. The patient was getting progressively more short of breath. No chest pain. Minimal sputum production. About one week ago she was hospitalized for dehydration and she was encouraged to drink more. Patient feels more sleepy drowsy, poor energy than before with less appetite and increased frequency of urination but no dysuria. No diarrhea or vomiting or abdominal pain. No headache dizziness, unilateral weakness or numbness. Patient feels generally weak. Her vitals looks stable, temperature slightly on the low site 97.3. Heart rate also slightly bradycardic 55-61. Patient currently on a beta saji. Labs were unremarkable including CBC, INR 1.2, unremarkable BMP and liver enzymes. Troponin 0.017. BNP is elevated 4980 Urine analysis is suspicious for infection, as per patient and son at bedside patient had UTI 2 about 5-6 months ago. Chest xray shows pulmonary vascular congestion and bilateral pleural effusion more on the right side consistent with CHF. Patient was admitted to the hospital with consult placed to cardiology and pulmonology. Echocardiogram shows an EF 60-65% patient was diuresed with improvement in lower extremity edema. She received antibiotics empirically for the abnormal urine and urine culture comes back with normal clare. No need for further antibiotics on discharge. Cardiology had recommended an increase in lasix dosing. No chest pain, no shortness of breath. At baselines. Lungs are clear. Patients family would like to bring her home and she is being discharged with the above mentioned recommendations. Please see medication reconciliation for a list of current medication. Thank you for allowing us to participate in the care of this patient. The impression and plan of care has been dictated by Jennifer Polanco, Nurse Practitioner as directed. Dr. Dilma MD I have performed a history and physical examination and medical decision making of this patient, discussed the same with the dictator, and agree with the dictators assessment and plan as written, documented as a scribe. Based on total visit time, I have performed more than 50% of this visit. Patient Condition at Discharge: Fair Plan - Discharge Summary Discharge Rx Participant: No New Discharge Prescriptions: New Famotidine [Pepcid] 20 mg PO DAILY #30 tablet Furosemide [Lasix] 40 mg PO BID@0900,1600 #60 tab Continue Phenytoin [Dilantin Chew] 50 mg PO BID amLODIPine [Norvasc] 10 mg PO DAILY #90 tab Phenytoin Sodium Extended [Dilantin] 100 mg PO BID Albuterol Inhaler [Ventolin Hfa Inhaler] 1 - 2 puff INHALATION RT-Q6H PRN PRN Reason: Shortness Of Breath Ipratropium-Albuterol Nebulize [Duoneb 0.5 mg-3 mg/3 ml Soln] 3 ml INHALATION RT-QID PRN PRN Reason: Shortness Of Breath Atorvastatin [Lipitor] 20 mg PO DAILY Metoprolol Succinate (ER) [Toprol XL] 75 mg PO DAILY lisinopriL [Zestril] 10 mg PO BID Discontinued Furosemide [Lasix] 20 mg PO DAILY 7 Days #7 tab Discharge Medication List Phenytoin [Dilantin Chew] 50 mg PO BID 02/13/20 [History] amLODIPine [Norvasc] 10 mg PO DAILY #90 tab 02/16/20 [Rx] Phenytoin Sodium Extended [Dilantin] 100 mg PO BID 04/26/21 [History] lisinopriL [Zestril] 10 mg PO BID 04/26/21 [History] Albuterol Inhaler [Ventolin Hfa Inhaler] 1 - 2 puff INHALATION RT-Q6H PRN 06/17/23 [History] Atorvastatin [Lipitor] 20 mg PO DAILY 06/17/23 [History] Ipratropium-Albuterol Nebulize [Duoneb 0.5 mg-3 mg/3 ml Soln] 3 ml INHALATION RT-QID PRN 06/17/23 [History] Metoprolol Succinate (ER) [Toprol XL] 75 mg PO DAILY 06/17/23 [History] Famotidine [Pepcid] 20 mg PO DAILY #30 tablet 06/19/23 [Rx] Furosemide [Lasix] 40 mg PO BID@0900,1600 #60 tab 06/19/23 [Rx] Follow up Appointment(s)/Referral(s): Claudy Grove MD [Primary Care Provider] - 1-2 days Rigoberto Plunkett DO [Doctor of Osteopathic Medicine] - 07/11/23 2:00 pm [facility] [NON-STAFF] - 06/20/23 12:00 pm (Set up for home delivery of portable tanks Home O2) Ambulatory/Diagnostic Orders: Basic Metabolic Panel [LAB.AMB] Time Frame: 3 Days, Location: None Selected Complete Blood Count w/diff [LAB.AMB] Location: None Selected Patient Instructions/Handouts: Heart Failure (DC) Activity/Diet/Wound Care/Special Instructions: PT NEEDS HOME OXYGEN TEST AND PORTABLE OXYGEN SET UP PT ALSO NEEDS PT/OT EVALUATION AND RECOMMENDATIONS. Discharge Disposition: HOME SELF-CARE
== END 2023-06-19 17:05 | disposition home or self-care (01) | DRG 291 ==
LOC: EC 18:35 → 4SSUR 06-18 00:30 → 6NMEDSUR 06-18 06:40
PROVIDERS: ADMIT Internal Medicine; ATTEND Internal Medicine
DX: I11.0 Hypertensive heart disease with heart failure (principal); I50.33 Acute on chronic diastolic (congestive) heart failure; J96.21 Acute and chronic respiratory failure with hypoxia; K76.6 Portal hypertension; J44.9 Chronic obstructive pulmonary disease, unspecified; R00.1 Bradycardia, unspecified; E86.0 Dehydration; I48.91 Unspecified atrial fibrillation; J43.9 Emphysema, unspecified; Z11.52 Encounter for screening for COVID-19; I69.398 Other sequelae of cerebral infarction; I08.0 Rheumatic disorders of both mitral and aortic valves; H53.9 Unspecified visual disturbance; M19.90 Unspecified osteoarthritis, unspecified site; Z87.440 Personal history of urinary (tract) infections; Z87.19 Personal history of other diseases of the digestive system; Z99.81 Dependence on supplemental oxygen; Z88.1 Allergy status to other antibiotic agents; Z88.0 Allergy status to penicillin
CPT/HCPCS: 36415; 71046; 80048; 80053; 81001; 83605; 83880; 84484; 85025; 85610; 85730; 87086; 87636; 93005; 93306; 94640; 94760; 96374; 96375; 99285

== ENCOUNTER → 2023-06-22 | Outpatient (CLI) | payer MEDICARE ==
[2023-06-22 18:29] LABS: Basophils # (A) 0.03 X 10*3/uL (0.00-0.10); Basophils % (A) 0.6 %; Eosinophils # (A) 0 X 10*3/uL (0.04-0.35); Eosinophils % (A) 0 %; HCT 38.6 % (37.2-46.3); HGB 12.1 g/dL (12.0-15.0); Lymphocytes # (A) 1.16 X 10*3/uL (0.90-5.00); Lymphocytes % (A) 21.8 %; MCH 30.1 pg (27.0-32.0); MCHC 31.3 g/dL (32.0-37.0); Monocytes # (A) 0.72 X 10*3/uL (0.20-1.00); Monocytes % (A) 13.5 %; NRBC Per 100 WBC 0 X 10*3/uL (0.00-0.01); Neutrophils % (A) 63.7 %; Platelet Count 190 X 10*3/uL (140-440); RBC 4.02 X 10*6/uL (4.10-5.20); WBC 5.33 X 10*3/uL (4.50-10.00)
[2023-06-22 18:45] LABS: BUN/Creat Ratio 17.82 Ratio (12.00-20.00); Blood Urea Nitrogen 19.6 mg/dL (9.0-27.0); Calcium 8.9 mg/dL (8.7-10.3); Chloride 101 mmol/L (96-109); Glucose 119 mg/dL (70-110); Sodium 144 mmol/L (135-145)
== END | disposition home or self-care (01) ==
LOC: LABWHC1 11:49
PROVIDERS: ATTEND Nurse Practitioner Family
DX: I11.0 Hypertensive heart disease with heart failure (principal); I50.33 Acute on chronic diastolic (congestive) heart failure; I48.91 Unspecified atrial fibrillation; E86.0 Dehydration
CPT/HCPCS: 36415; 80048; 85025